=== PATIENT | male | born 1965 | race Caucasian/White ===

== ENCOUNTER 2024-12-18 15:27 | Inpatient (IN) | payer BC, SELFPAY ==
--- OUTSIDE RECORDS SUMMARY | 2024-12-13 08:15 | XMS_ITS | Encounter Summary ---
Author Organization [facility] Address [address] [place] [address] Care Team Providers Care Post Form Remover Name Role Phone Gigi Zuñiga M.D. Primary Care Provider + Encounter Details Date Type Department Care Team (Latest Contact Info) Description 12/13/2024 9:15 AM CDT - 12/13/2024 11:59 PM CDT Hospital Encounter Department of Laboratory Medicine in [place], [place] [address] [facility] [place] [phone] Gigi Zuñiga M.D. [address] [place] [address] [place] [phone] Diabetes Mellitus Type 2 (HCC) Discharge Disposition: Home or Self Care Social History Tobacco Use Types Packs/Day Years Used Date Smoking Tobacco: Every Day Cigarettes 1 46 Smokeless Tobacco: Never Alcohol Use Standard Drinks/Week Comments Not Currently 0 (1 standard drink = 0.6 oz pur e alcohol) [facility] Utilities Answer Date Recorded In the past 12 months has e [employer], gas, oil, or water [employer] threatened to shut off services in your home? No 05/11/2024 Humiliation, Afraid, Rape, and Kick questionnair e Answer Date Recorded Within the last year, have y ou been afraid of your partner or ex-partner? No 09/30/2022 Within the last year, have y ou been humiliated or emotionally abused in other ways by your partner or ex-partner? No Within the last year, have y ou been kicked, hit, slapped, or otherwise physically hurt by your partner or ex-partner? No 09/30/2022 Within the last year, have y ou been raped or forced to have any kind of sexual activity by your partner or ex-partner? No 09/30/2022 Hunger Vital Sign Answer Date Recorded Within the past 12 months, y ou worried that your food would run out before you got the money to buy more. Never true 05/12/19 25 Within the past 12 months, t he food you bought just didn't last and you didn't have money to get more. Never true 05/11/2024 PRAPARE - Transportation Answer Date Re corded In the past 12 months, has l ack of transportation kept you from medical appointments or from getting medications? No 04/14 In the past 12 months, has l ack of transportation kept you from meetings, work, or from getting things needed for daily living? No 05/11/2024 Depression Answer Date Recor ded PHQ-9 Total Score (max 27) 7 08/19 Housing Stability Answer Date Recorded What is your living situation today? I have a [facility] place to live 05/11/2024 Education Answer Date Recorded What is the highest level of school you have completed or the highest degree you have received? GED or equivalent 02/2019 Sex and Gender Information Value Date Recorded Sex Assigned at Male 01/18/2017 10:15 AM PLASTIC TOP ASSEMBLER Legal Sex Male 9:34 AM PLASTIC TOP ASSEMBLER Gender Identity Male 01/18/2017 10:15 AM PLASTIC TOP ASSEMBLER Sexual Orientation Straight 01/18/2017 10 :15 AM PLASTIC TOP ASSEMBLER documented as of this encounter Medications at Time of Discharge acetaminophen (TYLENOL 8 HR) 650 mg ER tablet Take 1,500 mg by mouth 4 (four) times a day as needed. 02/03/2012 ammonium lactate (Lac-Hydrin) 12 % lotion Apply 1 Application topically 2 (two) times a day. Apply to areas of callusing twice daily. 400 g 11 05/15/[address] tablet Take 1 tablet (81 mg total) by mouth daily. 90 tablet 3 07/09/2024 atorvastatin (Lipitor) 40 mg tablet Take 1 tablet (40 mg total) by mouth at bedtime. 90 tablet 3 05/10/2024 BD Ultra-Fine Mini Pen Needle 31 gauge x 3/16 needle USE TO INJECT SUB-Q TWO TIMES A DAY 200 each 04/14/2020 blood-glucose sensor (FreeStyle Franco 3 Plus Sensor) deviceIndication s:Diabetes Mellitus Type 2 (HCC) 1 each every 15 (fifteen) days. Use as directed every 15 days. 6 each 3 07/10/2024 celecoxib (CeleBREX) 200 mg capsule TAKE 1 CAPSULE BY MOUTH EVERY DAY NEEDED FOR PAIN SCORE 4-6 OUT OF 10 90 capsule 08/12/2024 cholecalciferol (Vitamin D3) 125 mcg (5,000 Unit) capsule Take 1 capsule (5,000 Units total) by mouth daily. 90 capsule 3 07/09/2024 dextrose 40 % (dextrose) 40 % gel Take 15 g by mouth as needed for low blood sugar. 30 g 11 05/05/2020 lisinopriL 10 mg tablet Take 1 tablet (10 mg total) by mouth daily. 90 tablet 3 05/10/2024 melatonin 10 mg tablet Take 10 mg by mouth at bedtime. metFORMIN (Glucophage) 1,000 mg tablet Take 1 tablet (1,000 mg total) by mouth 2 (two) times a day with meals. 180 tablet 3 05/10/2024 nitroglycerin (Nitrostat) 0.[address] 1 tablet (0.4 mg total) under the tongue every 5 (five) minutes as needed for chest pain. 25 tablet 1 07/09/2024 omeprazole (PriLOSEC) [address] capsule Take 1 capsule (40 mg total) by mouth daily. 90 capsule 3 07/09/2024 Ozempic 2 mg/dose (8 mg/3 mL) injectionIndicat ions:Diabetes Mellitus Type 2 (HCC) INJECT 2MG SUBCUTANEOUS ONCE A WEEK 3 mL 12/12/2024 propranoloL (InderaL) 20 mg tablet Take 1 tablet (20 mg total) by mouth 3 (three) times a day. 270 tablet 3 07/09/2024 SUMAtriptan (Imitrex) 100 mg tablet Take 1 tablet (100 mg total) by mouth daily as needed for migraine. 9 tablet 1 10/30/2020 triamcinolone (KENALOG) 0.1 % ointment APPLY 1 APPLICATION TOPICALLY 2 TIMES A DAY NEEDED FOR IRRITATION OR RASH. APPLY TO AREA OF RASH. 60 g 1 01/26/2022 trolamine salicylate (ASPERCREME) 10 % cream Apply 1 application topically 3 (three) times a day as needed for muscle/joint pain. 120 g 3 04/01/2021 documented as of this encounter Plan of Treatment Upcoming Encounters Date Type Department Care Team (Latest Contact Info) Description 12/26/2024 8:00 AM PLASTIC TOP ASSEMBLER Office Visit [facility] Department of Internal Medicine in [place], [place] [address] [facility] [place] [phone] Gigi Zuñiga M.D. [address] [facility] [place] [phone] 12/26/2024 10:00 AM PLASTIC TOP ASSEMBLER Office Visit Department of Endocrinology in [place], [place] [address] [place] [phone] Lisa Gutierres P.A.-C. [address] [place] [phone] Discharge Disposition: Home or Self Care documented as of this encounter Procedures Procedure Name Priority Date/Time Associated Diagnosis Comments CBC WITH DIFFERENTIAL, B Routine 12/13/2024 9:29 AM CDT Diabetes Mellitus Type 2 (HCC) HEMOGLOBIN A1C, B Routine 12/13/2024 9:2 9 AM CDT Diabetes Mellitus Type 2 (HCC) COMPREHENSIVE METABOLIC PANEL, S/P Routine 12/13/2024 9:29 AM CDT Diabetes Mellitus Type 2 (HCC) documented in this encounter Results * (ABNORMAL) Hemoglobin A1c (12/13/2024 9:29 AM CDT) Hemoglobin A1c, B 6.2(H) 4.2 - 5.6 % 12/13/2024 11:20 AM CDT OWAT Comment: Hemoglobin A1c values of 5.7-6.4 percent indicate an increased risk for developing diabetes mellitus. In diabetic patients, HbA1c goals should be discussed with healthcare provider. Blood (Blood, Venous) 12/13/2024 9:29 AM CDT 12/13/2024 10:44 AM CDT us Gigi Zuñiga M.D. LAB BLOOD ADD-ON Final R esult [facility] [address] [place] [address], [facility] OWAT [facility] [place] [address] [place] [address] * (ABNORMAL) Comprehensive Metabolic Panel (12/13/2024 9:29 AM CDT) Potassium, P 4.6 3.6 - 5.2 mmol/L 12/13/2024 11:15 AM CDT OWAT Sodium, P 138 135 - 145 mmol/L 12/13/2024 11:15 AM CDT OWAT Chloride, P 104 98 - 107 mmol/L 12/13/2024 11:15 AM CDT OWAT Bicarbonate, P 22 22 - 29 mmol/L 12/13/2024 11:15 AM CDT OWAT Anion Gap, P 12 7 - 15 12/13/2024 11:15 AM CDT OWAT BUN (Blood Urea Nitrogen), P 21 8 - 24 mg/dL 12/13/2024 11:15 AM CDT OWAT Creatinine 0.71(L) 0.74 - 1.35 mg/dL 12/13/2024 11:15 AM CDT OWAT Estimated GFR (eGFR) >90 >=60 mL/min/BS A 12/13/2024 11:15 AM CDT OWAT Comment: Estimated GFR calculated using the 2020 CKD_EPI creatinine equation. Calcium, Total, P 9.4 8.6 - 10.0 mg/dL 12/13/2024 11:15 AM CDT OWAT Glucose, P 182(H) 70 - 140 mg/dL 12/13/2024 11:15 AM CDT OWAT Protein, Total, P 6.3 6.3 - 7.9 g/dL 12/13/2024 11:15 AM CDT OWAT Albumin, P 4.2 3.5 - 5.0 g/dL 12/13/2024 11:15 AM CDT OWAT Aspartate Aminotransferase (AST), P 16 8 - 48 U/L 12/13/2024 11:15 AM CDT OWAT Alkaline Phosphatase, P 67 40 - 129 U/L 12/13/2024 11:15 AM CDT OWAT Alanine Aminotransferase (ALT), P 16 7 - 55 U/L 12/13/2024 11:15 AM CDT OWAT Bilirubin, Total, P 0.5 0.0 - 1.2 mg/dL 12/13/2024 11:15 AM CDT OWAT Blood (Blood, Venous) 12/13/2024 9:29 AM CDT 12/13/2024 10:44 AM CDT us Gigi Zuñiga M.D. LAB BLOOD ADD-ON Final R esult [facility] [address] [place] [address], [facility] OW[facility] [place] [address], [place] [address] * CBC with Differential, Blood (12/13/2024 9:29 AM CDT) Hemoglobin 15.2 13.2 - 16.6 g/dL 12/13/2024 10:51 AM CDT OWAT Hematocrit 45.4 38.3 - 48.6 % 12/13/2024 10:51 AM CDT OWAT Erythrocytes 4.95 4.35 - 5.65 x10(12)/L 12/13/2024 10:51 AM CDT OWAT MCV 91.7 78.2 - 97.9 fL 12/13/2024 10:51 AM CDT OWAT RBC Distrib Width 13.2 11.8 - 14.5 % 12/13/2024 10:51 AM CDT OWAT Platelet Count 291 135 - 317 x10(9)/L 12/13/2024 10:51 AM CDT OWAT Leukocytes 7.8 3.4 - 9.6 x10(9)/L 12/13/2024 10:51 AM CDT OWAT Neutrophils 4.89 1.56 - 6.45 x10(9)/L 12/13/2024 10:51 AM CDT OWAT Lymphocytes 2.06 0.95 - 3.07 x10(9)/L 12/13/2024 10:51 AM CDT OWAT Monocytes 0.56 0.26 - 0.81 x10(9)/L 12/13/2024 10:51 AM CDT OWAT Eosinophils 0.24 0.03 - 0.48 x10(9)/L 12/13/2024 10:51 AM CDT OWAT Basophils 0.05 0.01 - 0.08 x10(9)/L 12/13/2024 10:51 AM CDT OWAT Blood (Blood, Venous) 12/13/2024 9:29 AM CDT 12/13/2024 10:42 AM CDT Gigi Zuñiga M.D. LAB BLOOD ADD-ON Final R esult [facility] [address] [place] [address], [facility] OWAT [facility] [place] [address], [place] [address] documented in this encounter Visit Diagnoses Diagnosis Diabetes Mellitus Type 2 (HCC) documented in this encounter Additional Health Concerns Assessment Noted Time PHQ-9 Depression Total Score: 7 08/20/19 21 4:13 PM CDT documented as of this encounter Care Teams Post Form Remover Relationship Specialty Start Date End Date Gigi Zuñiga M.D. [address] [place] [phone] PCP - General 07/28/16 documented as of this encounter
[2024-12-18] VITALS (11 sets, daily range): BP systolic 114–160; BP diastolic 71–109; PULSE 78–96; RESP 17–19; TEMP 36.4–36.6; O2SAT 93–98
--- OUTSIDE RECORDS SUMMARY | 2024-12-18 15:29 | XMS_ITS | Encounter Summary ---
Author Organization [facility] Address [address] [place] [address] Care Team Providers Care Gas Appliance Servicer Name Role Phone Gigi Zuñiga M.D. Primary Care Provider + Reason for Visit * Reason Onset Date Comments Labs for endocrine 11/05/2024 Encounter Details Date Type Department Care Team (Latest Contact Info) Description 11/05/2024 Clinical Communication Department of Endocrinology in [place], [place] [address] [place] [phone] Blanka Cisneros R.N. [address] [place] [phone] Labs for endocrine Social History Tobacco Use Types Packs/Day Years Used Date Smoking Tobacco: Every Day Cigarettes 1 46 Smokeless Tobacco: Never Alcohol Use Standard Drinks/Week Comments Not Currently 0 (1 standard drink = 0.6 oz pur e alcohol) [facility] Utilities Answer Date Recorded In the past 12 months has e [employer], gas, oil, or water [employer] threatened to shut off services in your [...] your living situation today? I have a [facility] place to live 05/11/2024 Education Answer Date Recorded What is the highest level of school you have completed or the highest degree you have received? GED or equivalent 02/2019 Sex and Gender Information Value Date Recorded Sex Assigned at Male 01/18/2017 10:15 AM DRYWALL TAPER Legal Sex Male 9:34 AM DRYWALL TAPER Gender Identity Male 01/18/2017 10:15 AM DRYWALL TAPER Sexual Orientation Straight 01/18/2017 10 :15 AM DRYWALL TAPER documented as of this encounter Plan of Treatment Upcoming Encounters Date Type Department Care Team (Latest Contact Info) Description 12/26/2024 8:00 AM DRYWALL TAPER Office Visit [facility] Department of Internal Medicine in [place], [place] [address] [place] [place] [phone] Gigi Zuñiga M.D. [address] [place] [phone] 12/26/2024 10:00 AM DRYWALL TAPER Office Visit Department of Endocrinology in [place], [place] [address] [place] [phone] Lisa Gutierres P.A.-C. [address] [place] [phone] Discharge Disposition: Home or Self Care documented as of this encounter Visit Diagnoses Not on filedocumented in this encounter Additional Health Concerns Assessment Noted Time PHQ-9 Depression Total Score: 7 08/20/19 21 4:13 PM CDT documented as of this encounter Care Teams Gas Appliance Servicer Relationship Specialty Start Date End Date Gigi Zuñiga M.D. [address] [place] [phone] PCP - General 07/28/16 documented as of this encounter
--- OUTSIDE RECORDS SUMMARY | 2024-12-18 15:29 | XMS_ITS | Encounter Summary ---
Author Organization [facility] Address [address] [place] [address] Care Team Providers Care Tobacco Stripper Hand Name Role Phone Gigi Zuñiga M.D. Primary Care Provider + Reason for Referral * Outpatient (Routine) - Authorized Specialty Diagnoses / Procedures Referred By Amalia fernandez Referred To Contact Sleep Medicine Diagnoses Obstructive Sleep Apnea Adult Marilin Quiros M.D. [address] [address] Phone: tel: fax: [facility] Referral ID Status Reason Start Date Expiration Date V isits Requested Visits Authorized [id number] Authorized 10/18/2024 04/19/2026 1 1 Encounter Details Date Type Department Care Team (Late st Contact Info) Description 10/18/2024 Results Follow-Up Department of Sleep Medicine in [place], [place] [address] [phone] Marilin Quiros M.D. [address] [place] [phone] Home sleep apnea test (HSAT) Social History Tobacco Use Types Packs/Day Years Used Date Smoking Tobacco: Every Day Cigarettes 1 46 Smokeless Tobacco: Never Alcohol Use Standard Drinks/Week Comments Not Currently 0 (1 standard drink = 0.6 oz pur e alcohol) [facility] Utilities Answer Date Recorded In the past 12 months has e electric, gas, oil, or water company threatened to shut off services in your [...] your living situation today? I have a [facility] place to live 05/11/2024 Education Answer Date Recorded What is the highest level of school you have completed or the highest degree you have received? GED or equivalent 02/2019 Sex and Gender Information Value Date Recorded Sex Assigned at Male 01/18/2017 10:15 AM MULTI SHARE PROGRAM COORDINATOR Legal Sex Male 9:34 AM MULTI SHARE PROGRAM COORDINATOR Gender Identity Male 01/18/2017 10:15 AM MULTI SHARE PROGRAM COORDINATOR Sexual Orientation Straight 01/18/2017 10 :15 AM MULTI SHARE PROGRAM COORDINATOR documented as of this encounter Plan of Treatment Upcoming Encounters Date Type Department Care Team (Latest Contact Info) Description 12/26/2024 8:00 AM MULTI SHARE PROGRAM COORDINATOR Office Visit [facility] Department of Internal Medicine in [place], [place] [address] [facility] [address] Gigi Zuñiga M.D. [address] [place] [phone] 12/26/2024 10:00 AM MULTI SHARE PROGRAM COORDINATOR Office Visit Department of Endocrinology in [place], [place] [address] [place] [phone] Lisa Gutierres P.A.-C. [address] [place] [phone] Discharge Disposition: Home or Self Care Scheduled Referrals Name Type Priority Associated Diagnoses Orde r Schedule Sleep Medicine office visit (clinic) Outpatient Referral Routine Obstructive Sleep Apnea Adult Expected: 01/17/2025, Expires: 01/17/2026 documented as of this encounter Visit Diagnoses Diagnosis Obstructive Sleep Apnea Adult- Primary documented in this encounter Additional Health Concerns Assessment Noted Time PHQ-9 Depression Total Score: 7 08/20/19 21 4:13 PM CDT documented as of this encounter Care Teams Tobacco Stripper Hand Relationship Specialty Start Date End Date Gigi Zuñiga M.D. [address] [facility] [address] PCP - General 07/28/16 documented as of this encounter
--- OUTSIDE RECORDS SUMMARY | 2024-12-18 15:29 | XMS_ITS | Encounter Summary ---
Author Organization [facility] Address [address] [place] [address] Care Team Providers Care Breakfast Supervisor Name Role Phone Gigi Zuñiga M.D. Primary Care Provider + Reason for Referral * Medication Prior Authorization - Pending Review Specialty Diagnoses / Procedures Referred By Amalia fernandez Referred To Contact Diagnoses Diabetes Mellitus Type 2 (HCC) Carmela Tejada M.D. [address] [place] [phone] Phone: tel: fax: Referral ID Status Reason Start Date Expiration Date V isits Requested Visits Authorized [id number] Pending Review 1 1 Reason for Visit * Reason Comments Med Refill Encounter Details Date Type Department Care Team (Late st Contact Info) Description 12/11/2024 Refill Department of Endocrinology in [address] [phone] Lisa Gutierres P.A.-C. [address] [place] [phone] Med Refill Social History Tobacco Use Types Packs/Day Years Used Date Smoking Tobacco: Every Day Cigarettes 1 46 Smokeless Tobacco: Never Alcohol Use Standard Drinks/Week Comments Not Currently 0 (1 standard drink = 0.6 oz pur e alcohol) [facility] Utilities Answer Date Recorded In the past 12 months has th e electric, gas, oil, or water company [...] your living situation today? I have a [facility] place to live 05/11/2024 Education Answer Date Recorded What is the highest level of school you have completed or the highest degree you have received? GED or equivalent 02/2019 Sex and Gender Information Value Date Recorded Sex Assigned at Male 01/18/2017 10:15 AM COMMERCIAL CREDIT HEAD Legal Sex Male 9:34 AM COMMERCIAL CREDIT HEAD Gender Identity Male 01/18/2017 10:15 AM COMMERCIAL CREDIT HEAD Sexual Orientation Straight 01/18/2017 10 :15 AM COMMERCIAL CREDIT HEAD documented as of this encounter Plan of Treatment Upcoming Encounters Date Type Department Care Team (Latest Contact Info) Description 12/26/2024 8:00 AM COMMERCIAL CREDIT HEAD Office Visit [facility] Department of Internal Medicine in [place], [place] [address] [place] [address] Ggii Zuñiga M.D. [address] [place] [address] 12/26/2024 10:00 AM COMMERCIAL CREDIT HEAD Office Visit Department of Endocrinology in [place], [place] [address] [place] [phone] Lisa Gutierres P.A.-C. [address] [place] [phone] Discharge Disposition: Home or Self Care documented as of this encounter Visit Diagnoses Diagnosis Diabetes Mellitus Type 2 (HCC)- Primary documented in this encounter Additional Health Concerns Assessment Noted Time PHQ-9 Depression Total Score: 7 08/20/19 21 4:13 PM CDT documented as of this encounter Care Teams Breakfast Supervisor Relationship Specialty Start Date End Date Gigi Zuñiga M.D. [address] [place] [phone] PCP - General 07/28/16 documented as of this encounter
--- OUTSIDE RECORDS SUMMARY | 2024-12-18 15:29 | XMS_ITS | Encounter Summary ---
Author Organization [facility] Address [address] [place] [address] Care Team Providers Care Rigging Loft Mechanic Name Role Phone Gigi Zuñiga M.D. Primary Care Provider + Encounter Details Date Type Department Care Team (Latest Contact Info) Description 12/13/2024 [facility] Department of Internal Medicine in [place], [place] [address] [place] [phone] Roni Loza M.D. [address] [place] [address] CBC with Differential, Blood, Comprehensive Metabolic Panel, Hemoglobin A1c Social History Tobacco Use Types Packs/Day Years Used Date Smoking Tobacco: Every Day Cigarettes 1 46 Smokeless Tobacco: Never Alcohol Use Standard Drinks/Week Comments Not Currently 0 (1 standard drink = 0.6 oz pur e alcohol) [facility] Utilities Answer Date Recorded In the past [...] your living situation today? I have a [facility] place to live 05/11/2024 Education Answer Date Recorded What is the highest level of school you have completed or the highest degree you have received? GED or equivalent 02/2019 Sex and Gender Information Value Date Recorded Sex Assigned at Male 01/18/2017 10:15 AM VP ORGANIZATIONAL DEVELOPMENT Legal Sex Male 9:34 AM VP ORGANIZATIONAL DEVELOPMENT Gender Identity Male 01/18/2017 10:15 AM VP ORGANIZATIONAL DEVELOPMENT Sexual Orientation Straight 01/18/2017 10 :15 AM VP ORGANIZATIONAL DEVELOPMENT documented as of this encounter Plan of Treatment Upcoming Encounters Date Type Department Care Team (Latest Contact Info) Description 12/26/2024 8:00 AM VP ORGANIZATIONAL DEVELOPMENT [facility] Department of Internal Medicine in [place], [place] [address] [place] [place] [address] Gigi Zuñiga M.D. [address] [place] [place] [phone] 12/26/2024 10:00 AM VP ORGANIZATIONAL DEVELOPMENT Office Visit Department of Endocrinology in [place], [place] [address] [place] [phone] Lisa Gutierres P.A.-C. [address] [place] [phone] Discharge Disposition: Home or Self Care documented as of this encounter Visit Diagnoses Not on filedocumented in this encounter Additional Health Concerns Assessment Noted Time PHQ-9 Depression Total Score: 7 08/20/19 21 4:13 PM CDT documented as of this encounter Care Teams Rigging Loft Mechanic Relationship Specialty Start Date End Date Gigi Zuñiga M.D. [address] [place] [address] PCP - General 07/28/16 documented as of this encounter
--- OUTSIDE RECORDS SUMMARY | 2024-12-18 15:30 | XMS_ITS | Clinical Summary ---
Author Organization [employer] [facility] Address [address] [place] [id number] Care Team Providers Care Cascara Bark Cutter Name Role Phone Gigi Zuñiga MD Primary Care Provider + Allergies Active Allergy Reactions Criticality Noted Date Comments Oxycodone-Acetaminophen Hives,Itching 4 Medications dextrose 15 g/32 mL (TRUEPLUS) oral gel packet 15 g. 11/29/19 13 Active acetaminophen SR (TYLENOL ARTHRITIS) 650 mg Extended-Releas e tablet Take 1 Tab by mouth. 02/03/20 12 Active SUMAtriptan (IMITREX) 100 mg tablet Take 100 mg by mouth. 03/30/19 18 Active triamcinolone (ARISTOCORT) 0.5 % ointment Apply topically to affected area(s). 04/21/19 18 Active cholecalciferol (VITAMIN D3) 1,000 unit capsule Take 1,000 Units by mouth. Active nitroglycerin (NITROSTAT) 0.[address] 0.4 mg under the tongue. 05/10/19 19 Active fluticasone furoate-vilante roL (BREO ELLIPTA) 100-25 mcg/dose inhaler Inhale 1 Puff by mouth. 08/06/19 20 Active semaglutide (OZEMPIC) pen Inject 0.25 mg subcutaneous. 08/06/19 20 Active propranoloL (INDERAL) 20 mg tablet TAKE ONE TABLET BY MOUTH THREE TIMES A DAY 06/05/19 20 Active omeprazole (PRILOSEC) 40 mg Delayed-Release capsule TAKE ONE CAPSULE BY MOUTH EVERY DAY 06/21/19 20 Active aspirin (ECOTRIN) 81 mg enteric coated tablet TAKE ONE TABLET BY MOUTH EVERY DAY 04/25/19 20 Active atorvastatin (LIPITOR) 40 mg tablet TAKE ONE TABLET BY MOUTH AT BEDTIME 06/05/19 20 Active metFORMIN (GLUCOPHAGE) 1,000 mg tablet TAKE ONE TABLET BY MOUTH TWICE A DAY WITH MEALS 06/05/19 20 Active lisinopriL (PRINIVIL; ZESTRIL) 10 mg tablet TAKE ONE TABLET BY MOUTH EVERY DAY 03/31/19 21 Active melatonin 10 mg tab Take 10 mg by mouth. Active benzonatate 200 mg capsuleIndicati ons:Acute cough Take 1 Capsule (200 mg) by mouth 3 times daily if needed for Cough. 21 Capsule 06/07/19 25 Active famotidine (PEPCID) 20 mg tabletIndicatio ns:Upper abdominal pain Take 1 Tablet (20 mg) by mouth 2 times daily if needed for Heartburn. 30 Tablet 5 1:01 PM BUTTER FAT TESTER 12/19/19 25 Active Insulin Syringe-Needle U-100 0.5 mL 30 gauge x /2 BD insulin 1/2mL 1/2 30G syringes See Instructions, Use Once daily with insulin glargine. Lifetime Need DX: E11.9, 100 each, 3 Refill(s) 03/03/19 17 025 Discontinued( Pharmacist change per medication history (E-cancel not sent)) NebulizerIndica tions:Cough,Inf luenza A Nebulizer, neb kit x 1, adult mask x 1, filters x 1. Frequency of use: daily; Medication: albuterol Length of need: 99 months 1 Device 04/20/19 19 025 Discontinued( Pharmacist change per medication history (E-cancel not sent)) BD INSULIN PEN NEEDLE UF MINI 31 gauge x 3/16 05/05/19 19 025 Discontinued( Pharmacist change per medication history (E-cancel not sent)) pen needle, diabetic 31 gauge x 06/28 Use to inject 2x per day Dx: E11.9 06/06/19 18 025 Discontinued( Pharmacist change per medication history (E-cancel not sent)) ranitidine (ZANTAC) 150 mg tabletIndicatio ns:Gastroesopha geal reflux disease, esophagitis presence not specified Take 1 tablet by mouth 2 times daily. 30 tablet 11/20/ 025 Discontinued( *Patient states no longer taking) glimepiride (AMARYL) 2 mg tablet TAKE TWO TABLETS BY MOUTH TWICE A DAY 06/05/19 025 Discontinued( *Patient states no longer taking) flash glucose scanning reader (FreeStyle Franco 2 [place]) misc 1 Each by Continuous Infusion route. 07/30/19 025 Discontinued( Pharmacist change per medication history (E-cancel not sent)) FreeStyle Franco 2 [place] misc USE DIRECTED FOUR TIMES A DAY 08/01/19 025 Discontinued( Pharmacist change per medication history (E-cancel not sent)) flash glucose sensor (FreeStyle Franco 2 Sensor) kit 1 Each by Continuous Infusion route. 08/20/19 025 Discontinued( Pharmacist change per medication history (E-cancel not sent)) FreeStyle Franco 2 Sensor kit USE DIRECTED 08/24/19 025 Discontinued( Pharmacist change per medication history (E-cancel not sent)) Gum Uprxnr-Nikfzl-X Felipe-Alcohol (Mastisol Liquid Adhesive) liqd 2 Drops by Continuous Infusion route. 08/20/19 025 Discontinued( Pharmacist change per medication history (E-cancel not sent)) trolamine salicylate 10% topical (MYOFLEX) 10 % cream Apply topically to affected area(s). 05/06/19 025 Discontinued( *Patient states no longer taking) Semglee,insulin glargine-yfgn, 100 unit/mL soln INJECT 35 UNITS SUB-Q TWO TIMES A DAY 02/25/19 025 Discontinued( *Patient states no longer taking) aluminum-magnes ium hydroxide-simet hicone (MAALOX PLUS) 200-200-20 mg/5 mL suspensionIndic ations:Upper abdominal pain,Nausea and vomiting, unspecified vomiting type Take 15 mL by mouth 4 times daily if needed for GI Upset. Shake Well. 355 mL 12/14/19 025 Discontinued( *Med complete/Asha men complete/Leve l of care change) famotidine (PEPCID) 20 mg tabletIndicatio ns:Upper abdominal pain,Nausea and vomiting, unspecified vomiting type Take 1 Tablet (20 mg) by mouth 2 times daily if needed for GI Upset or Heartburn. 30 Tablet 12/14/19 25 025 Discontinued( *Med complete/Asha men complete/Leve l of care change) metoclopramide HCl (REGLAN) 10 mg tabletIndicatio ns:Nausea and vomiting, unspecified vomiting type Take 1 Tablet (10 mg) by mouth every 6 hours if needed for Nausea/Vomitin g. 15 Tablet 12/14/19 25 025 Discontinued( *Med complete/Asha men complete/Leve l of care change) Active Problems Problem Noted Date Diagnosed Date SBO (small bowel obstruction) 12/16/2024 Acute gastroenteritis 12/13/2024 Vitamin D deficiency 10/23/2023 Tobacco dependence syndrome 08/14/2012 Obstructive sleep apnea syndrome 08/15/2011 Overview (12/16/2024): Compliant on NIPPV DM2 (diabetes mellitus, type 2) HTN (hypertension) Hypercholesterolemia Encounters Date Type Department Care Team Description 12/13/2024 2:54 PM CDT - 12/18/2024 1:30 PM BUTTER FAT TESTER Hospital Encounter [facility] [address] [place] [address] Torres Paul PA Hospitalist, [facility] [place], [facility] Collette Alonzo, Radha Gan, Paul Gaming, DO Hospitalist, [facility] Upper abdominal pain (Primary Dx); Nausea and vomiting, unspecified vomiting type Discharge Disposition: Home Self Care 12/13/2024 Travel from Last 3 Months Immunizations Immunization Administration Dates Next Due Td (Age >=7 Years) 02/13/2002 Family History Relation Name Status Comments Brother Alive x3 Father (Age 59) Maternal Grandfather Maternal Grandmother Mother Alive Paternal Grandfather Paternal Grandmother Sister Alive x3 Social History Tobacco Use Types Packs/Day Years Used Date Smoking Tobacco: Every Day Cigarettes 1 30 Smokeless Tobacco: Never Tobacco Cessation:Ready to Q uit: Not Asked; Counseling Given: Not Answered Comments:onset age 7 Alcohol Use Standard Drinks/Week Comments Not Currently 0 (1 standard drink = 0.6 oz pur e alcohol) Social Connections Answer Date Recorded Do you often feel lonely or isolated from those around you? 0 12/13/2024 Financial Resource Strain Answer Date R ecorded Difficulty of Paying Living Expenses 3 12/13/2024 Difficulty of Paying Living Expenses Not on file 12/13/2024 Food Insecurity Answer Date Recorded Do you worry your food will run out before you are able to buy more? 1 12/13/2024 Transportation Needs Answer Date Record ed Does lack of transportation keep you from medica l appointments? 1 12/13/2024 Does lack of transportation keep you from work, meetings or getting things that you need? 1 12/13/2024 Housing Stability Answer Date Recorded What is your housing situation today? 1 12/13/2024 Interpersonal Safety Answer Date Record ed Are you being hit, kicked, p ushed or yelled at (see row info)? No 12/13/2024 Interpersonal Safety Abuse 12 - 18 Not on file 12/13/2024 Interpersonal Safety Ambulatory Vulnerability No t on file 12/13/2024 Utilities Answer Date Recorded Do you have trouble paying f or utilities (for example, heat, electricity, water, phone)? 1 12/13/2024 Sex and Gender Information Value Date Recorded Sex Assigned at Not on file Legal Sex Male 5:23 AM BUTTER FAT TESTER Gender Identity Not on file Sexual Orientation Not on file Occupation Industry Job Start Date Job End Date [employer] Not on file Not on file Not on f ile Obstetrics History Last Filed Vital Signs Vital Sign Reading Time Taken Comments Blood Pressure 126/73 12/18/2024 8:00 AM BUTTER FAT TESTER Pulse 85 12/18/2024 8:00 AM BUTTER FAT TESTER Temperature 36.8 C (98.2 F) 12/18/2024 8:00 AM BUTTER FAT TESTER Respiratory Rate 16 12/18/2024 8:00 AM BUTTER FAT TESTER Oxygen Saturation 93% 12/18/2024 8:00 AM BUTTER FAT TESTER Inhaled Oxygen Concentration - - Weight 89.5 kg (197 lb 6.4 oz) 12/13/2024 8:43 P M CDT Height 172.7 cm (5' 8) 12/13/2024 2:53 PM CDT Body Mass Index 30.01 12/13/2024 2:53 PM CDT Plan of Treatment Upcoming Encounters Date Type Department Care Team (Late st Contact Info) Description 12/24/2024 3:10 PM BUTTER FAT TESTER Office Visit [facility] [address] [place] [phone] Edelmira Crowley, [address] [place] [address] Health Maintenance Due Date Last Done Comments Depression screening for age 12+ 1977 HIV for age 15-65 1980 Hepatitis C screening for age 18-79 06/14/1983 Hepatitis B series for 19+ ( 1 of 3 - 19+ 3-dose series) 1984 Pneumococcal series for age 50+ (1 of 2 - PCV) 1984 Colonoscopy through age 75 2010 Lipids for age 45-75 2010 Tetanus booster 02/14/2012 02/13/2002 Zoster (shingles) series for age 50+ (1 of 2) 06/14/2015 BMI (ht and wt on same day) for age 18+ 04/20/2019 0 04/19/2018, 11/15/2017 Influenza Vaccine (#1) 2024 RSV vaccine for adults or pr egnancy (1 - 1-dose 75+ series) 2040 Procedures Procedure Name Priority Date/Time Associated Diagnosis Comments GLUCOSE METER Routine 12/18/2024 9:08 AM BUTTER FAT TESTER XR ABDOMEN 1 VIEW PORTABLE Early AM 12/18/2024 6:11 AM BUTTER FAT TESTER WHITE BLOOD COUNT Early AM 12/18/2024 5:5 4 AM BUTTER FAT TESTER HEMOGLOBIN Early AM 12/18/2024 5:54 AM BUTTER FAT TESTER MAGNESIUM Early AM 12/18/2024 5:54 AM BUTTER FAT TESTER POTASSIUM Early AM 12/18/2024 5:54 AM BUTTER FAT TESTER CREATININE Early AM 12/18/2024 5:54 AM BUTTER FAT TESTER GLUCOSE METER Routine 12/17/2024 9:20 PM BUTTER FAT TESTER GLUCOSE METER Routine 12/17/2024 4:44 PM BUTTER FAT TESTER GLUCOSE METER Routine 12/17/2024 12:05 PM BUTTER FAT TESTER XR ABDOMEN 1 VIEW PORTABLE STAT 12/17/2024 9:02 AM BUTTER FAT TESTER GLUCOSE METER Routine 12/17/2024 7:44 AM BUTTER FAT TESTER GLUCOSE METER Routine 12/16/2024 8:37 PM BUTTER FAT TESTER GLUCOSE METER Routine 12/16/2024 5:49 PM BUTTER FAT TESTER XR SMALL BOWEL WATER SOLUBLE STAT 12/16/2024 1:51 PM BUTTER FAT TESTER GLUCOSE METER Routine 12/16/2024 12:00 PM BUTTER FAT TESTER GLUCOSE METER Routine 12/16/2024 8:10 AM BUTTER FAT TESTER XR ABDOMEN 1 VIEW PORTABLE STAT 12/16/2024 6:29 AM BUTTER FAT TESTER CREATININE Early AM 12/16/2024 6:02 AM BUTTER FAT TESTER MAGNESIUM Early AM 12/16/2024 6:02 AM BUTTER FAT TESTER POTASSIUM Early AM 12/16/2024 6:02 AM BUTTER FAT TESTER WHITE BLOOD COUNT Early AM 12/16/2024 6:0 2 AM BUTTER FAT TESTER GLUCOSE METER Routine 12/16/2024 3:35 AM BUTTER FAT TESTER GLUCOSE METER Routine 12/15/2024 11:54 PM BUTTER FAT TESTER GLUCOSE METER Routine 12/15/2024 8:03 PM BUTTER FAT TESTER GLUCOSE METER Routine 12/15/2024 4:37 PM BUTTER FAT TESTER GLUCOSE METER Routine 12/15/2024 1:40 PM BUTTER FAT TESTER XR CHEST 1 VIEW PORTABLE STAT 12/15/2024 1:07 PM BUTTER FAT TESTER LACTATE VENOUS STAT 12/15/2024 12:[address] CHEST ABDOMEN PELVIS WO STAT 12/15/2024 9:50 AM BUTTER FAT TESTER GLUCOSE METER Routine 12/15/2024 8:05 AM BUTTER FAT TESTER CBC WITH AUTO DIFFERENTIAL MILA 12/15/2024 7:36 AM BUTTER FAT TESTER MAGNESIUM MILA 12/15/2024 7:36 AM BUTTER FAT TESTER CBC WITH AUTO DIFFERENTIAL MILA 12/15/2024 7:36 AM BUTTER FAT TESTER BASIC METABOLIC PANEL MILA 12/15/2024 7:36 AM BUTTER FAT TESTER GLUCOSE METER Routine 12/15/2024 4:00 AM BUTTER FAT TESTER GLUCOSE METER Routine 12/14/2024 11:31 PM CDT GLUCOSE METER Routine 12/14/2024 7:22 PM CDT GLUCOSE METER Routine 12/14/2024 3:30 PM CDT GLUCOSE METER Routine 12/14/2024 11:23 AM CDT GLUCOSE METER Routine 12/14/2024 7:23 AM CDT PLATELET COUNT Early AM 12/14/2024 5:50 AM CDT HEMOGLOBIN Early AM 12/14/2024 5:50 AM CDT SODIUM Early AM 12/14/2024 5:50 AM CDT POTASSIUM Early AM 12/14/2024 5:50 AM CDT CREATININE Early AM 12/14/2024 5:50 AM CDT WHITE BLOOD COUNT Early AM 12/14/2024 5:5 0 AM CDT GLUCOSE METER Routine 12/14/2024 3:21 AM CDT GLUCOSE METER Routine 12/14/2024 12:16 AM CDT UA W/ SEDIMENT EXAM REFLEXED PER CRITERIA STAT 12/13/2024 5:17 PM CDT TROPONIN T (HS) ONE TIME Timed 12/13/2024 5:02 PM CDT LACTATE VENOUS Timed 12/13/2024 5:[address] ABDOMEN PELVIS W STAT 12/13/2024 4 :15 PM CDT EKG 12 LEAD STAT 12/13/2024 3:59 PM CDT HEMOGLOBIN A1C MONITORING (POCT) MILA 12/13/2024 3:05 PM CDT CBC W PLT NO DIFF MILA 12/13/2024 3:0 5 PM CDT EXTRA TUBE LAVENDER Today 12/13/2024 3 :05 PM CDT EXTRA TUBE BLUE Today 12/13/2024 3:05 PM CDT TROPONIN T (HS) ACUTE W/2HR REFLEX STAT 12/13/2024 3:05 PM CDT LIPASE STAT 12/13/2024 3:05 PM CDT HEPATIC FUNCTION PANEL STAT 12/13/2024 3:05 PM CDT LACTATE VENOUS Today 12/13/2024 3:05 PM CDT from Last 3 Months Results * (ABNORMAL) GLUCOSE METER (12/18/2024 9:08 AM BUTTER FAT TESTER) Only the most recent of23 resultswithin the time period is included. GLUCOSE METER 146(H) 65 - 100 mg/dL 12/18/2024 9:09 AM BUTTER FAT TESTER [facility] Blood BLOOD SPECIMEN / Unknown 12/18/2024 9:08 AM BUTTER FAT TESTER 12/18/2024 9:09 AM BUTTER FAT TESTER [place] [facility] Hospitalist CHEMISTRY Final Result [facility] [address] [place] [address] * XR ABDOMEN 1 VIEW PORTABLE (12/18/2024 6:11 AM BUTTER FAT TESTER) Only the most recent of3 resultswithin the time period is included. Anatomical Region Laterality Modality Abdomen Digital Radiogra phy 12/18/2024 6:27 AM BUTTER FAT TESTER Narrative 12/18/2024 6:27 AM BUTTER FAT TESTER For Patients: As a result of the Cures Act, medical imaging exams and procedure reports are released immediately into your electronic medical record. You may view this report before your referring provider. If you have questions, please contact your health care provider. INDICATION: Abnormal bowel function. TECHNIQUE: Abdomen, 2 supine views. COMPARISON: 12/17/2024. FINDINGS: Contrast is now all predominantly within the nondistended colon. Dilated small bowel obstruction is similar to yesterday`s study. No other interval change. Dictated by Alonso Steven MD @ 12/18/2024 6:27:32 AM (Electronically Signed) Procedure Note Douglas Steven MD - 12/18/2024 For Patients: As a result of the Cures Act, medical imagingexams and procedure reports are released immediately into your electronicmedical record. You may view this report before your referring provider.If you have questions, please contact your health care provider. INDICATION: Abnormal bowel function. TECHNIQUE: Abdomen, 2 supine views. COMPARISON: 12/17/2024. FINDINGS: Contrast is now all predominantly within the nondistended colon. Dilatedsmall bowel obstruction is similar to yesterday`s study. No other intervalchange. Dictated by Alonso Steven MD @ 12/18/2024 6:27:32 AM (Electronically Signed) [facility] GENERAL IMAGING Final Res ult * (ABNORMAL) WHITE BLOOD COUNT (12/18/2024 5:54 AM BUTTER FAT TESTER) Only the most recent of3 resultswithin the time period is included. WHITE BLOOD COUNT 4.0(L) 4.5 - 11.0 thou/cu mm 12/18/2024 6:51 AM BUTTER FAT TESTER [facility] Blood BLOOD SPECIMEN / Unknown Venipuncture / Unknown 12/18/2024 5:54 AM BUTTER FAT TESTER 12/18/2024 6:43 AM BUTTER FAT TESTER [facility] DO HEMATOLOGY Final Res ult Performing Organization Address City/[facility]/ZIP Co de Phone Number [facility] [address] [place] [address] * HEMOGLOBIN (12/18/2024 5:54 AM BUTTER FAT TESTER) Only the most recent of2 resultswithin the time period is included. Pathologist [facility] HEMOGLOBIN 14.2 13.5 - 17.5 g/dL 12/18/2024 6:51 AM BUTTER FAT TESTER [facility] MCV 90 80 - 100 fL 12/18/2024 6:51 AM BUTTER FAT TESTER [facility] Blood BLOOD SPECIMEN / Unknown Venipuncture / Unknown 12/18/2024 5:54 AM BUTTER FAT TESTER 12/18/2024 6:43 AM BUTTER FAT TESTER [facility] DO HEMATOLOGY Final Res ult [facility] [address] [place] [address] * (ABNORMAL) POTASSIUM (12/18/2024 5:54 AM BUTTER FAT TESTER) Only the most recent of3 resultswithin the time period is included. POTASSIUM 3.4(L) 3.5 - 5.1 mmol/L 12/18/2024 7:06 AM [facility] Blood BLOOD SPECIMEN / Unknown Venipuncture / Unknown 12/18/2024 5:54 AM BUTTER FAT TESTER 12/18/2024 6:43 AM BUTTER FAT TESTER [facility] DO CHEMISTRY Final Res ult Performing Organization Address [facility] de Phone Number [facility] [address] [place] [address] * CREATININE (12/18/2024 5:54 AM BUTTER FAT TESTER) Only the most recent of3 resultswithin the time period is included. eGFR >90 >90 mL/min/1.7 3m2 12/18/2024 7:06 AM [facility] Comment:As of 2021, eG FR is calculated by the CKD-EPI creatinine equation without race adjustment. eGFR can be influenced by muscle mass, exercise, and diet. The reported eGFR is an estimation only and is only applicable if the renal function is stable. CREATININE 0.73 0.70 - 1.20 mg/dL 12/18/2024 7:06 AM [facility] Blood BLOOD SPECIMEN / Unknown Venipuncture / Unknown 12/18/2024 5:54 AM BUTTER FAT TESTER 12/18/2024 6:43 AM BUTTER FAT TESTER [employer] DO CHEMISTRY Final Res ult Performing Organization Address [facility] de Phone Number [facility] [address] [place], [place] [id number] * MAGNESIUM (12/18/2024 5:54 AM BUTTER FAT TESTER) Only the most recent of3 resultswithin the time period is included. MAGNESIUM 2.0 1.6 - 2.6 mg/dL 12/18/2024 7:06 AM BUTTER FAT TESTER [facility] Blood BLOOD SPECIMEN / Unknown Venipuncture / Unknown 12/18/2024 5:54 AM BUTTER FAT TESTER 12/18/2024 6:43 AM BUTTER FAT TESTER us Paul Desir DO CHEMISTRY Final Res ult [facility] [address] [place] [address] * XR SMALL BOWEL WATER SOLUBLE (12/16/2024 1:51 PM BUTTER FAT TESTER) Anatomical Region Laterality Modality SMALL BOWEL Computed Radiogr aphy 12/16/2024 2:00 PM BUTTER FAT TESTER Narrative 12/16/2024 2:00 PM BUTTER FAT TESTER For Patients: As a result of the Cures Act, medical imaging exams and procedure reports are released immediately into your electronic medical record. You may view this report before your referring provider. If you have questions, please contact your health care provider. Indication: Small-bowel obstruction Technique: Small bowel follow-through. Enteric contrast was administered at approximately 0910 hours and subsequent images were obtained at 11 15 and 1340 hours Comparison: Same day abdominal radiograph and prior exams Findings/Impression: An enteric tube is present with tip obscured by enteric contrast. Initial image obtained at 0910 hours shows enteric contrast within the stomach and proximal small bowel. Redemonstration of numerous loops of gaseous distended small bowel throughout the abdomen measuring up to approximately 4.5 centimeters in diameter. Subsequent images obtained at 1115 and 1340 hours shows progression of enteric contrast throughout the loops of dilated small bowel with suspected enteric contrast seen in the ascending colon on images obtained at 1340 hours. The lung bases are clear. No acute osseous abnormality. Dictated by Vikram Rockwell MD @ 12/16/2024 2:00:41 PM (Electronically Signed) Procedure Note Vikram Rockwell MD - 12/16/2024 For Patients: As a result of the Cures Act, medical imagingexams and procedure reports are released immediately into your electronicmedical record. You may view this report before your referring provider.If you have questions, please contact your health care provider. Indication: Small-bowel obstruction Technique: Small bowel follow-through. Enteric contrast was administered atapproximately 0910 hours and subsequent images were obtained at 11 15 [id number] hours Comparison: Same day abdominal radiograph and prior exams Findings/Impression: An enteric tube is present with tip obscured by enteric contrast. Initial image obtained at 0910 hours shows enteric contrast within thestomach and proximal small bowel. Redemonstration of numerous loops ofgaseous distended small bowel throughout the abdomen measuring up toapproximately 4.5 centimeters in diameter. Subsequent images obtained at 1115 and 1340 hours shows progression ofenteric contrast throughout the loops of dilated small bowel withsuspected enteric contrast seen in the ascending colon on images obtainedat 1340 hours. The lung bases are clear. No acute osseous abnormality. Dictated by Vikram Rockwell MD @ 12/16/2024 2:00:41 PM (Electronically Signed) us Paul Desir DO FLUOROSCOPY Final Res ult * XR CHEST 1 VIEW PORTABLE (12/15/2024 1:07 PM BUTTER FAT TESTER) Anatomical Region Laterality Modality HEART, THORAX, CHEST Digital Rad iography 12/15/2024 1:5 2 PM BUTTER FAT TESTER Narrative 12/15/2024 1:52 PM BUTTER FAT TESTER For Patients: As a result of the Cures Act, medical imaging exams and procedure reports are released immediately into your electronic medical record. You may view this report before your referring provider. If you have questions, please contact your health care provider. Indication: NG tube placement Comparison: Two-view chest June 06, 2024 Technique: Single AP view chest Findings: Satisfactory position of nasogastric tube with the tip and side port in the gastric lumen. There is no focal consolidation, effusion, or pneumothorax. The cardiomediastinal silhouette is within normal limits. The bony thorax is grossly intact. Impression: Satisfactory position of nasogastric tube. Dictated by Daniele Dennison MD @ 12/15/2024 1:52:14 PM (Electronically Signed) Procedure Note Daniele Dennison MD - 12/15/2024 For Patients: As a result of the Cures Act, medical imagingexams and procedure reports are released immediately into your electronicmedical record. You may view this report before your referring provider.If you have questions, please contact your health care provider. Indication: NG tube placement Comparison: Two-view chest June 06, 2024 Technique: Single AP view chest Findings: Satisfactory position of nasogastric tube with the tip and side port inthe gastric lumen. There is no focal consolidation, effusion, or pneumothorax. The cardiomediastinal silhouette is within normal limits. The bony thorax is grossly intact. Impression: Satisfactory position of nasogastric tube. Dictated by Daniele Dennison MD @ 12/15/2024 1:52:14 PM (Electronically Signed) us Collette Gibson MD GENERAL IMAGING Fin al Result * LACTATE VENOUS (12/15/2024 12:27 PM BUTTER FAT TESTER) Only the most recent of3 resultswithin the time period is included. LACTATE,VENOUS 0.9 0.5 - 2.0 mmol/L 12/15/2024 12:48 PM BUTTER FAT TESTER [facility] Blood BLOOD SPECIMEN / Unknown Venipuncture / Unknown 12/15/2024 12:27 PM BUTTER FAT TESTER 12/15/2024 12:29 PM BUTTER FAT TESTER us Collette Gibson MD CHEMISTRY Fin al Result [facility] [address] [place] [address] * CT CHEST ABDOMEN PELVIS WO (12/15/2024 9:50 AM BUTTER FAT TESTER) Anatomical Region Laterality Modality Abdomen, Pelvis, AORTA, LIVER, SPLEEN, CHEST Computed Tomography 12/15/2024 10:1 9 AM [employer] Impressions 12/15/2024 10:19 AM [employer] TE[employer] 1. No acute pulmonary findings. 2. Worsening moderate dilated fluid-filled small bowel loops diffusely increasing mesenteric edema. Distal small bowel appears more decompressed. A small focal area of small bowel narrowing in the left abdomen again seen. Findings could represent developing small-bowel obstruction, worsening enteritis. Consider surgical evaluation. Please note that all CT scans at this facility use dose modulation, iterative reconstruction, and/or weight-based dosing when appropriate to reduce radiation dose to as low as reasonably achievable. Dictated by Helen Powell MD @ 12/15/2024 10:19:21 AM (Electronically Signed) Narrative 12/15/2024 10:19 AM [employer] TESTER For Patients: As a result of the Cures Act, medical imaging exams and procedure reports are released immediately into your electronic medical record. You may view this report before your referring provider. If you have questions, please contact your health care provider. INDICATION: Persistent abdominal pain small-bowel obstruction TECHNIQUE: CT chest, abdomen and pelvis acquired without contrast. COMPARISON: CT 12/13/2024 FINDINGS: CHEST: Cardiovascular structures: Heart size is normal. Thoracic aorta and main pulmonary artery are normal in caliber. Mediastinum and mau: No mass or adenopathy. Lungs and pleura: Right basilar atelectasis trace effusion. Chest wall and axilla: No mass or adenopathy. Bones: No suspicious bone lesions. Unremarkable for age. ABDOMEN AND PELVIS: Liver: Unremarkable. Gallbladder and bile ducts: Unremarkable. Pancreas: Unremarkable. Spleen: Unremarkable. Adrenal glands: Unremarkable. Kidneys: Right peripheral low-attenuation lesion incompletely assessed on this study. No hydronephrosis or renal calculi. GI tract: Abundant stool in the colon. Diverticulosis. Normal appendix. Increasing prominent fluid-filled mildly dilated small bowel loops measuring up to 3.7 centimeters there is increasing mesenteric edema. Moderate amount of fluid in the pelvis. The distal small bowel loops are more decompressed. There is a focal area of narrowing in the left lower quadrant of the abdomen this is on and Vascular structures: Abdominal aorta is normal in caliber. Lymph nodes: Unremarkable. Miscellaneous: Mild abdominal pelvic ascites increased. Pelvic Organs: Unremarkable. Bones: No suspicious bone lesions. Unremarkable for age. Procedure Note Helen Powell MD - 12/15/2024 For Patients: As a result of the Cures Act, medical imagingexams and procedure reports are released immediately into your electronicmedical record. You may view this report before your referring provider.If you have questions, please contact your health care provider. INDICATION: Persistent abdominal pain small-bowel obstruction TECHNIQUE: CT chest, abdomen and pelvis acquired without contrast. COMPARISON: CT 12/13/2024 FINDINGS: CHEST: Cardiovascular structures: Heart size is normal. Thoracic aorta and mainpulmonary artery are normal in caliber. Mediastinum and mau: No mass or adenopathy. Lungs and pleura: Right basilar atelectasis trace effusion. Chest wall and axilla: No mass or adenopathy. Bones: No suspicious bone lesions. Unremarkable for age. ABDOMEN AND PELVIS: Liver: Unremarkable. Gallbladder and bile ducts: Unremarkable. Pancreas: Unremarkable. Spleen: Unremarkable. Adrenal glands: Unremarkable. Kidneys: Right peripheral low-attenuation lesion incompletely assessed onthis study. No hydronephrosis or renal calculi. GI tract: Abundant stool in the colon. Diverticulosis. Normal appendix. Increasing prominent fluid-filled mildly dilated small bowel loopsmeasuring up to 3.7 centimeters there is increasing mesenteric edema.Moderate amount of fluid in the pelvis. The distal small bowel loops aremore decompressed. There is a focal area of narrowing in the left lowerquadrant of the abdomen this is on and Vascular structures: Abdominal aorta is normal in caliber. Lymph nodes: Unremarkable. Miscellaneous: Mild abdominal pelvic ascites increased. Pelvic Organs: Unremarkable. Bones: No suspicious bone lesions. Unremarkable for age. IMPRESSION: 1. No acute pulmonary findings. 2. Worsening moderate dilated fluid-filled small bowel loops diffuselyincreasing mesenteric edema. Distal small bowel appears more decompressed.A small focal area of small bowel narrowing in the left abdomen againseen. Findings could represent developing small-bowel obstruction,worsening enteritis. Consider surgical evaluation. Please note that all CT scans at this facility use dose modulation,iterative reconstruction, and/or weight-based dosing when appropriate toreduce radiation dose to as low as reasonably achievable. Dictated by Helen Powell MD @ 12/15/2024 10:19:21 AM (Electronically Signed) us Collette Gibson MD CT Fin al Result * (ABNORMAL) CBC WITH AUTO DIFFERENTIAL (12/15/2024 7:36 AM [employer] TESTER) WHITE BLOOD COUNT 12.7(H) 4.5 - 11.0 thou/cu mm 12/15/2024 8:10 AM [facility] RED BLOOD COUNT 4.59 4.30 - 5.90 mil/cu mm 12/15/2024 8:10 AM [facility] HEMOGLOBIN 14.2 13.5 - 17.5 g/dL 12/15/2024 8:10 AM [facility] HEMATOCRIT 41.4 37.0 - 53.0 % 12/15/2024 8:10 AM [facility] MCV 90 80 - 100 fL 12/15/2024 8:10 AM [facility] MCH 30.9 26.0 - 34.0 pg 12/15/2024 8:10 AM [facility] MCHC 34.3 32.0 - 36.0 g/dL 12/15/2024 8:10 AM [facility] RDW 12.8 11.5 - 15.5 % 12/15/2024 8:10 AM [facility] PLATELET COUNT 216 140 - 440 thou/cu mm 12/15/2024 8:10 AM [facility] MPV 9.1 6.5 - 11.0 fL 12/15/2024 8:10 AM [facility] % NEUT 84.2 % 12/15/2024 8:10 AM [facility] % LYMPH 8.8 % 12/15/2024 8:10 AM [facility] % MONO 6.8 % 12/15/2024 8:10 AM [facility] % EOS 0.0 % 12/15/2024 8:10 AM [facility] % BASO 0.2 % 12/15/2024 8:10 AM [facility] ABSOLUTE NEUTROPHILS 10.7(H) 1.7 - 7.0 thou/cu mm 12/15/2024 8:10 AM [facility] ABSOLUTE LYMPHOCYTES 1.1 0.9 - 2.9 thou/cu mm 12/15/2024 8:10 AM [facility] ABSOLUTE MONOCYTES 0.9(H) <0.9 thou/cu mm 12/15/2024 8:10 AM [facility] ABSOLUTE EOSINOPHILS 0.0 <0.5 thou/cu mm 12/15/2024 8:10 AM [facility] ABSOLUTE BASOPHILS 0.0 <0.3 thou/cu mm 12/15/2024 8:10 AM [facility] Blood BLOOD SPECIMEN / Unknown Venipuncture / Unknown 12/15/2024 7:36 AM [employer] 12/15/2024 7:38 AM [facility] us Collette Gibson MD HEMATOLOGY Fin al Result [facility] [address] [place] [address] * (ABNORMAL) BASIC METABOLIC PANEL (12/15/2024 7:36 AM [facility]) SODIUM 136 136 - 145 mmol/L 12/15/2024 7:56 AM [facility] POTASSIUM 4.0 3.5 - 5.1 mmol/L 12/15/2024 7:56 AM [facility] CHLORIDE 106 98 - 107 mmol/L 12/15/2024 7:56 AM [facility] CO2,TOTAL 21(L) 22 - 29 mmol/L 12/15/2024 7:56 AM [facility] ANION GAP 9 5 - 18 12/15/2024 7:56 AM [facility] GLUCOSE 152(H) 70 - 99 mg/dL 12/15/2024 7:56 AM [facility] CALCIUM 8.5(L) 8.8 - 10.4 mg/dL 12/15/2024 7:56 AM [facility] Comment: Reference ranges for this test were updated on 12/19/2023 to reflect our healthy population more accurately. Reference range changes are not retroactively applied to results, but previous results using the same methodology can be interpreted in the context of the new reference range. BUN 15 6 - 20 mg/dL 12/15/2024 7:56 AM [facility] CREATININE 0.60(L) 0.70 - 1.20 mg/dL 12/15/2024 7:56 AM [employer] [facility] BUN/CREAT RATIO 25(H) 10 - 20 7:56 AM [employer] [facility] eGFR >90 >90 mL/min/1. 73m2 12/15/2024 7:56 AM [facility] Comment:As of 2021, eG FR is calculated by the CKD-EPI creatinine equation without race adjustment. eGFR can be influenced by muscle mass, exercise, and diet. The reported eGFR is an estimation only and is only applicable if the renal function is stable. Blood BLOOD SPECIMEN / Unknown Venipuncture / Unknown 12/15/2024 7:36 AM [employer] 12/15/2024 7:38 AM [employer] Collette Gibson MD CHEMISTRY Fin al Result Performing Organization Address City/[facility]/ZIP Co de Phone Number [facility] [address] [place] [address] * PLATELET COUNT (12/14/2024 5:50 AM CDT) PLATELET COUNT 240 140 - 440 thou/cu mm 12/14/2024 7:02 AM CDT [facility] MPV 9.4 6.5 - 11.0 fL 12/14/2024 7:02 AM CDT [facility] Blood BLOOD SPECIMEN / Unknown Venipuncture / Unknown 12/14/2024 5:50 AM CDT 12/14/2024 5:59 AM CDT us Donte Orantes [facility] HEMATOLOGY Final Result [facility] [address] [place] [address] * SODIUM (12/14/2024 5:50 AM CDT) SODIUM 137 136 - 145 mmol/L 12/14/2024 6:34 AM CDT [facility] Blood BLOOD SPECIMEN / Unknown Venipuncture / Unknown 12/14/2024 5:50 AM CDT 12/14/2024 5:59 AM CDT Donte Orantes [facility] CHEMISTRY Final Result [facility] [address] [place] [address] * (ABNORMAL) UA W/ SEDIMENT EXAM REFLEXED PER CRITERIA (12/13/2024 5:17 PM CDT) COLOR Yellow Yellow Color 12/13/2024 5:21 PM T [facility] CLARITY Clear Clear Clarity 12/13/2024 5:21 PM [facility] SPECIFIC GRAVITY,URINE 1.020 1.010, 1.015, 1.020, 1.025 12/13/2024 5:21 PM [facility] PH,URINE 5.5 6.0, 7.0, 8.0, 5.5, 6.5, 7.5, 8.5 12/13/2024 5:21 PM [facility] UROBILINOGEN, QUALITATIVE Normal Normal EU/dl 12/13/2024 5:21 PM [facility] PROTEIN, URINE Trace(A) Negative mg/dL 12/13/2024 5:21 PM [facility] GLUCOSE, URINE Negative Negative mg/dL 12/13/2024 5:21 PM [facility] KETONES,URINE Trace(A) Negative mg/dL 12/13/2024 5:21 PM [facility] BILIRUBIN,URI NE Negative Negative 12/13/2024 5:21 PM [facility] OCCULT BLOOD,URINE Negative Negative 12/13/2024 5:21 PM [facility] NITRITE Negative Negative 12/13/2024 5:21 PM [facility] LEUKOCYTE ESTERASE Negative Negative 12/13/2024 5:21 PM [facility] Urine URINE SPECIMEN / Unknown Non-Blood / Unknown 12/13/2024 5:17 PM CDT 12/13/2024 5:19 PM CDT Torres HUNTER URINE Final Re sult Performing Organization Address City/[facility]/ZIP Co de Phone Number [facility] [address] [place] [address] * TROPONIN T (HS) ONE TIME (12/13/2024 5:02 PM CDT) TROPONIN T HS <6 6-15 ng/L ng/L 12/13/2024 5:23 PM CDT [facility] Blood BLOOD SPECIMEN / Unknown Venipuncture / Unknown 12/13/2024 5:02 PM CDT 12/13/2024 5:04 PM CDT us Torres HUNTER CHEMISTRY Final Re sult Performing Organization Address [facility] Co de Phone Number [facility] [address] [place] [address] * CT ABDOMEN PELVIS W (12/13/2024 4:15 PM CDT) Anatomical Region Laterality Modality Abdomen, Pelvis, AORTA, LIVER, SPLEEN Computed Tomography 12/13/2024 4:51 PM CDT Impressions 12/13/2024 4:51 PM CDT 1. Mildly distended stomach with debris inside. Consider correlation with recent oral intake and symptoms of delayed gastric emptying. 2. Nonspecific mildly prominent small bowel measuring up to 2.7 centimeter in the left abdomen with mild associated mesenteric edema. Findings may represent infectious or inflammatory enteritis or developing small bowel obstruction given possible focal area of narrowing in the left lower quadrant of the abdomen. Trace free fluid within the abdomen and pelvis. Please note that all CT scans at this facility use dose modulation, iterative reconstruction, and/or weight-based dosing when appropriate to reduce radiation dose to as low as reasonably achievable. Dictated by Tomasz Ward MD @ 12/13/2024 4:51:30 PM (Electronically Signed) Narrative 12/13/2024 4:51 PM CDT For Patients: As a result of the 21st Century Cures Act, medical imaging exams and procedure reports are released immediately into your electronic medical record. You may view this report before your referring provider. If you have questions, please contact your health care provider. INDICATION: Abdominal pain, acute, nonlocalized right-sided TECHNIQUE: CT of the abdomen and pelvis was obtained with 100 mL of Omnipaque 300 intravenous contrast. Please note that all CT scans at this facility use dose modulation, iterative reconstruction, and/or weight-based dosing when appropriate to reduce radiation dose to as low as reasonably achievable. COMPARISON: 10/05/2008. FINDINGS: Lower thorax: Mild bilateral dependent atelectasis. Liver and biliary tree: Normal. Gallbladder: Normal. Spleen: Normal. Pancreas: Normal. Adrenal glands: Normal. Kidneys and ureters: 1.6 centimeter right renal cyst. Additional subcentimeter hypoattenuating lesions are too small to characterize and are favored to represent cysts. No hydronephrosis or obstructing renal calculi. Gastrointestinal tract: Moderate stool burden is seen throughout the colon. Mild colonic diverticulosis without CT evidence of acute diverticulitis. No evidence of acute appendicitis. Moderately distended stomach with debris inside. Nonspecific mildly prominent small bowel measuring up to 2.7 centimeter (2/101). There is a focal area of narrowing (4/65). Peritoneal cavity: Mild mesenteric edema. Trace free fluid within the abdomen and pelvis. Bladder: Normal. Pelvic organs: Mildly enlarged prostate. Vasculature: Mild calcification. Lymph nodes: Normal. Abdominal wall: Normal. Musculoskeletal: Mild degenerative changes of the bilateral hips and of the visualized spine. Procedure Note Luis M Ward MD - 12/13/2024 For Patients: As a result of the Cures Act, medical imagingexams and procedure reports are released immediately into your electronicmedical record. You may view this report before your referring provider.If you have questions, please contact your health care provider. INDICATION: Abdominal pain, acute, nonlocalized right-sided TECHNIQUE: CT of the abdomen and pelvis was obtained with 100 mL of Omnipaque 300intravenous contrast. Please note that all CT scans at this facility use dose modulation,iterative reconstruction, and/or weight-based dosing when appropriate toreduce radiation dose to as low as reasonably achievable. COMPARISON: 10/05/2008. FINDINGS: Lower thorax: Mild bilateral dependent atelectasis. Liver and biliary tree: Normal. Gallbladder: Normal. Spleen: Normal. Pancreas: Normal. Adrenal glands: Normal. Kidneys and ureters: 1.6 centimeter right renal cyst. Additionalsubcentimeter hypoattenuating lesions are too small to characterize andare favored to represent cysts. No hydronephrosis or obstructing renalcalculi. Gastrointestinal tract: Moderate stool burden is seen throughout thecolon. Mild colonic diverticulosis without CT evidence of acutediverticulitis. No evidence of acute appendicitis. Moderately distendedstomach with debris inside. Nonspecific mildly prominent small bowelmeasuring up to 2.7 centimeter (2/101). There is a focal area of narrowing(4/65). Peritoneal cavity: Mild mesenteric edema. Trace free fluid within theabdomen and pelvis. Bladder: Normal. Pelvic organs: Mildly enlarged prostate. Vasculature: Mild calcification. Lymph nodes: Normal. Abdominal wall: Normal. Musculoskeletal: Mild degenerative changes of the bilateral hips and ofthe visualized spine. IMPRESSION: 1. Mildly distended stomach with debris inside. Consider correlation withrecent oral intake and symptoms of delayed gastric emptying. 2. Nonspecific mildly prominent small bowel measuring up to 2.7 centimeterin the left abdomen with mild associated mesenteric edema. Findings mayrepresent infectious or inflammatory enteritis or developing small bowelobstruction given possible focal area of narrowing in the left lowerquadrant of the abdomen. Trace free fluid within the abdomen and pelvis. Please note that all CT scans at this facility use dose modulation,iterative reconstruction, and/or weight-based dosing when appropriate toreduce radiation dose to as low as reasonably achievable. Dictated by Tomasz Ward MD @ 12/13/2024 4:51:30 PM (Electronically Signed) us Torres HUNTER CT Final Re sult * EKG 12 LEAD (12/13/2024 3:59 PM CDT) Interpretation Normal sinus rhythm Normal ECG When compared with ECG of 07-Jun-2023 13:24, No significant change was found BEYOND NOW Ventricular Rate 83 BPM BEYOND NOW Atrial Rate 83 BPM BEYOND NOW P-R Interval 132 ms BEYOND NOW QRS Duration 70 ms BEYOND NOW QT 370 ms BEYOND NOW QTc 434 ms BEYOND NOW P Moran 31 degrees BEYOND NOW R Moran 57 degrees BEYOND NOW T Moran 46 degrees BEYOND NOW 12/13/2024 3:59 PM CDT 12/14/2024 2:50 AM CDT us Torres HUNTER EKG ORD Final Re sult BEYOND NOW [place], [place] * TROPONIN T (HS) ACUTE W/2HR REFLEX (12/13/2024 3:05 PM CDT) TROPONIN T HS 6 6-15 ng/L ng/L 12/13/2024 3:33 PM CDT [facility] Blood BLOOD SPECIMEN / Unknown IV Start / Unknown 12/13/2024 3:05 PM CDT 12/13/2024 3:10 PM CDT Narrative [facility] - 12/13/2024 3:33 PM CDT hs-cTnT (Elecsys Troponin T Gen 5) concentration (s) above the sex-specific 99th percentile (16 ng/L or greater for males or 11 ng/L or greater for females) are indicative of myocardial injury. If initial hs-cTnT <=100 ng/L at presentation, a 0h/2h ABSOLUTE (ng/L) delta change (rising or falling) of >=10 ng/L suggests a significant change, whereas a 0h/2h delta change <=3 ng/L suggests no significant change. If initial hs-cTnT >100 ng/L at presentation, a 0h/2h/ RELATIVE (percent, %) delta change of 20% is suggested to distinguish patients with acute vs. chronic myocardial injury. There are multiple etiologies that can cause hs-cTnT increases above the 99th percentile (myocardial injury) other than acute myocardial infarction. Clinical context and careful clinical evaluation are critical for diagnosis and risk-stratification. The diagnosis of acute myocardial infarction requires a rising and/or falling pattern in hs-cTnT concentrations with at least one value above the sex-specific 99th percentile PLUS at least one of the following clinical criteria: ischemic symptoms, new or presumed new significant ST-T wave changes or new LBBB, development of pathological Q waves, imaging evidence of new loss of viable myocardium or new regional wall motion abnormality, or identification of intracoronary atherothrombosis or an acute angiographic culprit on coronary angiography. In appropriate low-risk patients with a non-ischemic electrocardiogram without active chest pain with a symptom onset >3-hours without recurrence, a single initial hs-cTnT<6 ng/L identifies patient with a very low risk in emergency department patient population. Torres HUNTER CHEMISTRY Final Re sult Performing Organization Address [facility] Co de Phone Number [facility] [address] [place] [address] * EXTRA TUBE LAVENDER (12/13/2024 3:05 PM CDT) Blood BLOOD SPECIMEN / Unknown IV Start / Unknown 12/13/2024 3:05 PM CDT 12/13/2024 3:16 PM CDT Doctor Unknown LABORATORY Final Result Performing Organization Address [facility] de Phone Number [facility] [address] [place] [address] * EXTRA TUBE BLUE (12/13/2024 3:05 PM CDT) Blood BLOOD SPECIMEN / Unknown IV Start / Unknown 12/13/2024 3:05 PM CDT 12/13/2024 3:16 PM CDT Doctor Unknown LABORATORY Final Result Performing Organization Address [facility] de Phone Number [facility] [address] [place] [address] * CBC W PLT NO DIFF (12/13/2024 3:05 PM CDT) WHITE BLOOD COUNT 8.3 4.5 - 11.0 thou/cu mm 12/13/2024 4:31 PM CDT [facility] RED BLOOD COUNT 5.49 4.30 - 5.90 mil/cu mm 12/13/2024 4:31 PM CDT [facility] HEMOGLOBIN 17.0 13.5 - 17.5 g/dL 12/13/2024 4:31 PM [facility] HEMATOCRIT 49.6 37.0 - 53.0 % 12/13/2024 4:31 PM [facility] MCV 90 80 - 100 fL 12/13/2024 4:31 PM [facility] MCH 31.0 26.0 - 34.0 pg 12/13/2024 4:31 PM [facility] MCHC 34.3 32.0 - 36.0 g/dL 12/13/2024 4:31 PM [facility] RDW 13.1 11.5 - 15.5 % 12/13/2024 4:31 PM [facility] PLATELET COUNT 318 140 - 440 thou/cu mm 12/13/2024 4:31 PM [facility] MPV 10.2 6.5 - 11.0 fL 12/13/2024 4:31 PM [facility] Blood BLOOD SPECIMEN / Unknown IV Start / Unknown 12/13/2024 3:05 PM CDT 12/13/2024 3:16 PM CDT Torresshelley HUNTER HEMATOLOGY Final Re sult [facility] [address] [place] [address] * LIPASE (12/13/2024 3:05 PM CDT) LIPASE 24.9 13.0 - 60.0 IU/L 12/13/2024 3:33 PM CDT [facility] Blood BLOOD SPECIMEN / Unknown IV Start / Unknown 12/13/2024 3:05 PM CDT 12/13/2024 3:10 PM CDT Torres HUNTER CHEMISTRY Final Re sult [facility] [address] [place] [address] * Hemoglobin A1C (12/13/2024 3:05 PM CDT) [facility] HEMOGLOBIN A1C MONITORING (POCT) 6.3 <=6.4 % 12/14/2024 6:27 PM CDT [facility] Blood BLOOD SPECIMEN / Unknown IV Start / Unknown 12/13/2024 3:05 PM CDT 12/13/2024 3:16 PM CDT [facility] - 12/14/2024 6:27 PM CDT (<=6.9%) Indicates good control (7.0% to 7.9%) Indicates fair control (>=8.0%) Indicates poor control NOTE: These thresholds are guidelines and individual targets may vary. Falsely low levels may be seen with: Recent Transfusion, Recent Significant Blood Loss, Hemolytic Diseases, or Falsely elevated levels may be seen with: Untreated Anemias, Splenectomy Donte Orantes [facility] CHEMISTR[facility] Final Result [facility] [address] [place] [address], * HEPATIC FUNCTION PANEL (12/13/2024 3:05 PM CDT) [facility] ALBUMIN 4.7 4.0 - 4.9 g/dL 12/13/2024 3:33 PM CDT [facility] PROTEIN,TOTAL 7.1 6.0 - 8.0 g/dL 12/13/2024 3:33 PM T [facility] BILIRUBIN,TOTAL 0.5 0.0 - 1.2 mg/dL 12/13/2024 3:33 PM CDT [facility] BILIRUBIN,DIRECT 0.2 0.0 - 0.2 mg/dL 12/13/2024 3:33 PM T [facility] BILIRUBIN,INDIRE CT 0.3 0.2 - 0.8 mg/dL 12/13/2024 3:33 PM T [facility] ALK PHOSPHATASE 69 40 - 129 IU/L 12/13/2024 3:33 PM T [facility] ALT (SGPT) 17 10 - 50 IU/L 12/13/2024 3:33 PM CDT [facility] AST (SGOT) 23 10 - 50 IU/L 12/13/2024 3:33 PM CDT [facility] Blood BLOOD SPECIMEN / Unknown IV Start / Unknown 12/13/2024 3:05 PM CDT 12/13/2024 3:10 PM CDT us Torres Carson HUNTER CHEMISTRY Final Re sult [facility] [address] [place] [address] from Last 3 Months Insurance [employer] OF [place] Advance Directives * Full Code (Latest Code Status on File) Date Activated Date Inactivated Comments 12/13/2024 8:44 PM Question Answer Comments Code Status Discussion: Reviewed Preferences 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
--- OUTSIDE RECORDS SUMMARY | 2024-12-18 15:30 | XMS_ITS | Clinical Summary ---
Author Organization [facility] Address [address] [place] [address] Care Team Providers Care Plastic Surgery Manager Name Role Phone Gigi Zuñiga M.D. Primary Care Provider + Source Comments Patient records contain information from all sites at [facility]. For routine questions regarding patient records, call [phone] during business hours, M-F 8:00 AM - 5:00 PM Central Time. Record requests for emergency care only can be directed to [phone] at any time.[facility] Allergies Active Allergy Reactions Criticality Noted Date Comments Oxycodone-Acetaminophen Itching,Hives (R eselect Reaction) 07/15/2013 Medications * This document contains information received from the source organization and may not represent a complete record from that organization. acetaminophen (TYLENOL 8 HR) 650 mg ER tablet Take 1,500 mg by mouth 4 (four) times a day as needed. 02/03/20 12 Active BD Ultra-Fine Mini Pen Needle 31 gauge x 3/16 needle USE TO INJECT SUB-Q TWO TIMES A DAY 200 each 04/15/19 21 Active melatonin 10 mg tablet Take 10 mg by mouth at bedtime. Active dextrose 40 % (dextrose) 40 % gel Take 15 g by mouth as needed for low blood sugar. 30 g 11 05/06/19 21 Active SUMAtriptan (Imitrex) 100 mg tablet Take 1 tablet (100 mg total) by mouth daily as needed for migraine. 9 tablet 1 10/31/19 21 Active trolamine salicylate (ASPERCREME) 10 % cream Apply 1 application topically 3 (three) times a day as needed for muscle/joint pain. 120 g 3 04/01/19 22 Active triamcinolone (KENALOG) 0.1 % ointment APPLY 1 APPLICATION TOPICALLY 2 TIMES A DAY NEEDED FOR IRRITATION OR RASH. APPLY TO AREA OF RASH. 60 g 1 01/27/20 22 Active metFORMIN (Glucophage) 1,000 mg tablet Take 1 tablet (1,000 mg total) by mouth 2 (two) times a day with meals. 180 tablet 3 05/11/19 25 Active atorvastatin (Lipitor) 40 mg tablet Take 1 tablet (40 mg total) by mouth at bedtime. 90 tablet 3 05/11/19 25 Active lisinopriL 10 mg tablet Take 1 tablet (10 mg total) by mouth daily. 90 tablet 3 05/11/19 25 Active ammonium lactate (Lac-Hydrin) 12 % lotion Apply 1 Application topically 2 (two) times a day. Apply to areas of callusing twice daily. 400 g 11 05/16/19 25 Active cholecalcifero l (Vitamin D3) 125 mcg (5,000 Unit) capsule Take 1 capsule (5,000 Units total) by mouth daily. 90 capsule 3 07/10/19 25 Active omeprazole (PriLOSEC) [address] capsule Take 1 capsule (40 mg total) by mouth daily. 90 capsule 07/10/19 25 Active propranoloL (InderaL) 20 mg tablet Take 1 tablet (20 mg total) by mouth 3 (three) times a day. 270 tablet 3 07/10/19 25 Active nitroglycerin (Nitrostat) 0.[address] 1 tablet (0.4 mg total) under the tongue every 5 (five) minutes as needed for chest pain. 25 tablet 1 07/10/19 [address] aspirin [address] tablet Take 1 tablet (81 mg total) by mouth daily. 90 tablet 3 07/10/19 25 Active blood-glucose sensor (FreeStyle Franco 3 Plus Sensor) deviceIndicati ons:Diabetes Mellitus Type 2 (HCC) 1 each every 15 (fifteen) days. Use as directed every 15 days. 6 each 07/11/19 25 Active celecoxib (CeleBREX) 200 mg capsule TAKE 1 CAPSULE BY MOUTH EVERY DAY NEEDED FOR PAIN SCORE 4-6 OUT OF 10 90 capsule 08/13/19 25 Active Ozempic 2 mg/dose (8 mg/3 mL) injectionIndic ations:Diabete s Mellitus Type 2 (HCC) INJECT 2MG SUBCUTANEOUS ONCE A WEEK 3 mL 12/13/19 25 Active semaglutide (Ozempic) 2 mg/dose (8 mg/3 mL) injectionIndic ations:Diabete s Mellitus Type 2 (HCC) Inject 2 mg under the skin every 7 (seven) days. 9 mL 1 07/11/19 25 025 Discontinued Active Problems Problem Noted Date Diagnosed Date Deficiency Vitamin D 10/23/2023 Hypertension Essential Primary 12/22/2021 Microalbuminuria 09/14/2021 Paresthetica Meralgia Left 11/05/2019 Overweight Body Mass Index 25-29.9 Adult 017 Overview (08/20/2016): Body mass index (BMI) 40.0-44.9, adult Rule activated problem due to BMI 40-44 posted on 08/15 at 06:09 CDT. Diabetes Mellitus Type 2 06/30/2016 Overview (07/29/2020): Images from the original note were not included. Diabetes Mellitus without Mention of Complication, Type II or Unspecified Type, Not Stated as Uncontrolled Normal sugar in 2013, Diagnosed in 2016 at [facility] During sugar check during hospitalization Results for DOUGLAS INGRAM ( ) as of 07/29/2020 16:09 Ref. Range 07/19/2020 18:21 07/19/2020 21:06 07/20/2020 00:11 07/20/2020 04:22 07/20/2020 06:26 Glucose, POCT, B Latest Ref Range: 70 - 140 mg/dL 198 (H) 249 (H) 201 (H) 150 (H) 129 Results for DOUGLAS INGRAM ( ) as of 07/29/2020 16:09 Ref. Range 11/05/2018 08:15 08/01/2019 08:09 11/05/2019 08:25 04/29/2020 08:17 Hemoglobin A1c, B Latest Ref Range: 4.2 - 5.6 % 6.8 (H) 9.0 (H) 6.7 (H) 6.9 (H) ER visit for hypoglycemia in 07/19/2020: Per EMS, patient was unresponsive upon arrival with a blood sugar of 36, he was given 200 mils of D10 IV as well as oral orange juice and has been feeling much improved Has been on insulin glargine since 02/2017 Prior to that he was on glimepiride and metformin Started Ozempic in 07/2019 Assessment & Plan (06/26/2024 9:36 AM CDT): Patient does have a history of type 2 diabetes with his most recent hemoglobin A1c 6.6% 2 months ago. We did review that diabetes puts him at higher risk for developing foot related complications such as diabetic foot ulcer and infection. For this reason, advise against picking at, peeling, burning or cutting the callus himself at home. This should be managed by a professional outside of routine callus maintenance consisting of use of a gentle pumice stone or file on the callus routinely. Patient expressed understanding was in agreement with the above plan. All questions were answered to his satisfaction today. He will follow up in Podiatry Clinic on an as-needed basis going forward. Insomnia 11/21/2012 Abuse Tobacco Smoking 08/14/2012 Hyperlipidemia 08/24/2011 Apnea Sleep Obstructive 08/15/2011 Overview (07/29/2020): Compliant on NIPPV Tear Calf Muscle Initial Right Encounters * This document contains information received from the source organization and may not represent a complete record from that organization. Date Type Department Care Team Description 12/13/2024 9:15 AM CDT - 12/13/2024 11:59 PM CDT Hospital Encounter Department of Laboratory Medicine in [place], [place] [address] [facility] [address] [phone] Gigi Zuñiga M.D. Diabetes Mellitus Type 2 (HCC) Discharge Disposition: Home or Self Care 12/13/2024 Results Follow-Up [facility] Department of Internal Medicine in [place], [place] [address] [place] [address] Roni Loza M.D. CBC with Differential, Blood, Comprehensive Metabolic Panel, Hemoglobin A1c 12/11/2024 Refill Department of Endocrinology in [address] [address] Lisa Gutierres P.A.-C. Med Refill 11/05/2024 Clinical Communication Department of Endocrinology in [address] [phone] [place], Blanka Montes R.N. Labs for endocrine 10/18/2024 Results Follow-Up Department of Sleep Medicine in [place] [address] [place] [address] Marilin Quiros M.D. Home sleep apnea test (HSAT) 10/18/2024 Clinical Communication Department of Sleep Medicine in [place] [address] [place] [address] Georgette Scott, [facility] 10/08/2024 11:30 AM CDT - 10/11/2024 11:59 PM CDT Hospital Encounter Department of Sleep Medicine in [address] [address] Marilin Quiros M.D. Apnea Sleep Obstructive Discharge Disposition: Home or Self Care 09/27/2024 2:15 PM CDT Telemedicine Department of Sleep Medicine in [place] [address] [place] [address] Marilin Quiros M.D. Apnea Sleep Obstructive (Primary Dx); Hypertension Essential Primary from Last 3 Months Immunizations Immunization Administration Dates Next Due DTaP (Infanrix, Tripedia) 10/18/2008 Influenza, Injectable, Mdck, Quadrivalent 11/02/2018 Influenza, Injectable, Quadrivalent 11/11/2014 Influenza, Seasonal, Injectable 11/12/2012 Influenza, Unspecified 11/13/2015,2014,10/15/2013,2012,11/01/2011,11/11/2010,11/12/2009 PCV13 08/27/2015 PCV20 06/14/2024 PPSV23 12/20/2012 RZV (SHINGRIX) 11/05/2018,05/09/2018 SARS-COV-2 (COVID-19) - PFIZ ER (Discontinued)(12 years or older) 05/14/2020,04/23/2020 Td Preservative Free (TENIVA C, DECAVAC) 08/06/2019 Td, (Adult) Unspecified 02/13/2002 Tdap 10/18/2008 influenza trivalent high dos e (HD)(PF) 11/12/2009 influenza trivalent vaccine (6 months and older)(PF) 11/27/2023 influenza vaccine quad (FLUZONE/FLUARIX) (6 months and older)(PF) 12/02/2021,11/19/2020,11/21/2019,2017,11/23/2016,11/13/2015 Family History Medical History Relation Name Comments Coronary artery disease Brother 1 daniel Obesity Brother 1 daniel Stroke Brother 1 daniel Obesity Brother 2 eugenie Stroke Brother 2 eugenie Depression Brother 3 roel Psychiatric Brother 3 roel Coronary artery disease Father edie Hyperlipidemia (high cholesterol) Father edie Obesity Father edie Asthma Mother joshua Emphysema Mother joshua Lung cancer Mother joshua Obesity Mother joshua Diabetes Sister 1 naresh Obesity Sister 1 naresh Sleep apnea Sister 1 naresh Hyperlipidemia (high cholesterol) Sister 2 viola Hypertension Sister 2 viola Obesity Sister 2 viola Sleep apnea Sister 2 viola Diabetes Sister 3 noah Hypertension Sister 3 noah Obesity Sister 3 noah Sleep apnea Sister 3 noah Basal cell carcinoma Neg Hx Melanoma Neg Hx Squamous cell carcinoma Neg Hx Relation Name Status Comments Brother 1 daniel Alive Brother 2 eugenie Brother 3 roel Father edie Alive Mother joshua Alive Sister 1 naresh Alive Sister 2 viola Sister 3 noah Social History Tobacco Use Types Packs/Day Years Used Date Smoking Tobacco: Every Day Cigarettes 1 46 Smokeless Tobacco: Never Tobacco Cessation:Ready to Q uit: No; Counseling Given: Yes Alcohol Use Standard Drinks/Week Comments Not Currently 0 (1 standard drink = 0.6 oz pur e alcohol) [facility] Utilities Answer Date Recorded In the past [...] your living situation today? I have a [facility] place to live 05/11/2024 Education Answer Date Recorded What is the highest level of school you have completed or the highest degree you have received? GED or equivalent 02/2019 Sex and Gender Information Value Date Recorded Sex Assigned at Male 01/18/2017 10:15 AM MERCHANT PATROLLER Legal Sex Male 9:34 AM MERCHANT PATROLLER Gender Identity Male 01/18/2017 10:15 AM MERCHANT PATROLLER Sexual Orientation Straight 01/18/2017 10 :15 AM MERCHANT PATROLLER Last Filed Vital Signs Vital Sign Reading Time Taken Comments Blood Pressure 126/82 06/14/2024 9:24 AM CDT Pulse 82 06/14/2024 9:22 AM CDT Temperature 36.9 C (98.4 F) 06/14/2024 9:22 AM CDT Respiratory Rate 16 06/14/2024 9:22 AM CDT Oxygen Saturation 97% 06/14/2024 9:22 AM CDT Inhaled Oxygen Concentration - - Weight 85.6 kg (188 lb 11.4 oz) 06/14/2024 9:22 AM CDT Height 174 cm (5' 8.5) 06/14/2024 9:22 AM CDT Body Mass Index 28.27 06/14/2024 9:22 AM CDT Plan of Treatment Upcoming Encounters Date Type Department Care Team (Latest Contact Info) Description 12/26/2024 8:00 AM MERCHANT PATROLLER Office Visit [facility] Department of Internal Medicine in [place], [place] [address] [place] [address] Gigi Zuñiga M.D. [address] [place] [phone] 12/26/2024 10:00 AM MERCHANT PATROLLER Office Visit Department of Endocrinology in [place], [place] [address] [place] [phone] Lisa Gutierres P.A.-C. [address] [place] [phone] Discharge Disposition: Home or Self Care Health Maintenance Due Date Last Done Comments CT Colonography 1965 Cologuard 1965 FIT 1965 Hepatitis C Screening 1965 Hepatitis B Vaccines (1 of 3 - 19+ 3-dose series) 1984 Lung Cancer Screening 08/01/2013 08/01/2012 Diabetic Eye Exam 02/09/2022 02/09/2021 (Pe rformed elsewhere), 02/14/2020 (Performed elsewhere), 01/17/2019 (Performed elsewhere), Additional history exists COVID-19 Vaccine ( season) 2024 11/27/2023, 11/25/2022, 12/02/2021, Additional history exists Urine Albumin 04/12/2025 04/12/2024, 02/14, 09/09/2021, Additional history exists Diabetic Office Visit with Foot Exam 05/10/2025 05/10/2024 (Performed elsewhere), 07/29/2020, 11/05/2018, Additional history exists Hemoglobin A1C 06/12/2025 12/13/2024, 11/15, 04/12/2024, Additional history exists Office Visit for Blood Pressure Check / Re-check 06/14/2025 06/14/2024 Tobacco Cessation counseling 06/14/2025 06/14/2024 Visit: Chronic Disease, age 18+ 06/14/2025 06/14/2024, 06/14/2024 Colonoscopy 09/30/2025 10/01/2015 Colorectal Cancer Screening 09/30/2025 Sodium Level 12/15/2025 12/15/2024, 11/0 02/2024, 12/13/2024, Additional history exists Creatinine Level (Kidney Function Test) 12/18/2025 12/18/2024, 12/16/2024, 12/15/2024, Additional history exists Potassium Level 12/18/2025 12/18/2024, 11/0 04/2024, 12/15/2024, Additional history exists Lipid (Cholesterol) Screening 04/12/2029 04/12/2024, 03/09/2023, 09/09/2021, Additional history exists DTaP,Tdap,and Td Vaccines (4 - Td or Tdap) 08/05/2029 08/06/2019, 10/18/2008, 10/18/2008, Additional history exists Zoster Vaccines Completed 11/05/2018, 05/09/2018 Depression Screening (Annual PHQ-2) Completed 06/14/2024, 06/14/2024 Pneumococcal vaccine (50+ years) Completed 06/14/2024, 08/27/2015, 12/20/2012 Influenza Vaccine Completed 10/12/2024, , 12/02/2021, Additional history exists IPV Vaccines Aged Out No longer eligi ble based on patient's age to complete this topic Procedures Procedure Name Priority Date/Time Associated Diagnosis Comments HEMOGLOBIN A1C, B Routine 12/13/2024 9:2 9 AM CDT Diabetes Mellitus Type 2 (HCC) COMPREHENSIVE METABOLIC PANEL, S/P Routine 12/13/2024 9:29 AM CDT Diabetes Mellitus Type 2 (HCC) CBC WITH DIFFERENTIAL, B Routine 12/13/2024 9:29 AM CDT Diabetes Mellitus Type 2 (HCC) HOME SLEEP APNEA TEST (HSAT) Routine 10/15/2024 6:35 PM CDT Apnea Sleep Obstructive ALBUMIN, RANDOM, U Routine 04/12/2024 7: 54 AM MERCHANT PATROLLER Diabetes Mellitus Type 2 (HCC) LIPID PANEL, S Routine 04/12/2024 7:38 AM MERCHANT PATROLLER Diabetes Mellitus Type 2 (HCC) Hyperlipidemia CT CHEST WITH IV CONTRAST Routine 08/01/2012 8:10 AM CDT from Last 3 Months or Most Recently Relevant to Health Maintenance Results * CBC with Differential, Blood (12/13/2024 9:29 [...] Zuñiga M.D. LAB BLOOD ADD-ON Final R [employer] Performing Organization Address [facility] Co de Phone Number [facility] [address] [place] [address], [facility] [facility] in [place] [address] [place] [phone] * (ABNORMAL) Hemoglobin A1c (12/13/2024 9:29 AM [...] M.D. LAB BLOOD ADD-ON Final R esult [facility] [address] [facility] [place] [address], [facility] [facility] in [place] [address] [place] [address] * (ABNORMAL) Comprehensive Metabolic Panel (12/13/2024 9:29 [...] M.D. LAB BLOOD ADD-ON Final R esult Performing Organization Address [facility] Co de Phone Number [facility] [address] [place] [address], [place] [facility] in [place] [address] [place] [address] * Home sleep apnea test (HSAT) (10/15/2024 6:35 PM CDT) Narrative ONBASE - 10/18/2024 9:59 AM CDT SUMMARY Home sleep apnea testing (WatchPAT) performed 10/13/2024 demonstrated a probable apnea hypopnea index (pAHI 3%) of 36.7 per hour, a probable apnea hypopnea index (pAHI 4%) of 28.9 per hour, with probable respiratory disturbance index (pRDI) of 42.6 per hour, mostly driven by obstructive sleep disordered breathing events in the supine sleep position. Oxyhemoglobin saturation monisha was 80%, mean was 93%, and T88 (recording time percentage below ideal) was 9.8 minutes. Total recording time was 9 hours, 59 minutes, with estimated total sleep time of 9 hours, 5 minutes. CLINICAL INTERPRETATION Moderate to severe obstructive sleep apnea. RECOMMENDATION: Recommend an all night titration polysomnogram versus a trial of auto CPAP 5-15 cmH2O with an overnight oximetry to be performed while on treatment. Recommend follow-up in Sleep Medicine clinic to review the results of this home sleep apnea test and to avoid driving when drowsy. us Marilin Quiros M.D. SLEEP CENTER ORDERABLES Fi nal Result Performing Organization Address City/[facility]/ZIP Co de Phone Number ONBASE NA * (ABNORMAL) Albumin, Random, Urine (04/12/2024 7:54 AM MERCHANT PATROLLER) Albumin, Random, U 55.8 mg/L 2024 12:21 PM MERCHANT PATROLLER [facility] Comment: ----ADDITIONAL INFORMATION---- This test has been modified from the brineyard supervisor's instructions. Its performance characteristics were determined by [facility] in a manner consistent with CLIA requirements. This test has not been cleared or approved by the U.S. Food and Drug Administration. Creatinine 194 mg/dL 04/12/2024 12:21 PM MERCHANT PATROLLER [facility] Albumin/Creatinine Ratio 29(H) <17 mg/g 04/12/2024 12:21 PM MERCHANT PATROLLER [facility] Urine (Urine, Midstream) 04/12/2024 7:54 AM MERCHANT PATROLLER 04/12/2024 11:39 AM MERCHANT PATROLLER Lisa Gutierres P.A.-C. LAB URINE ORDERABLES F inal Result [facility] [address] [place] [address], [facility] [place] [address] * (ABNORMAL) Lipid Panel (04/12/2024 7:38 AM MERCHANT PATROLLER) Triglycerides 53 mg/dL 04/12/2024 8:37 AM MERCHANT PATROLLER [facility] Comment: ----REFERENCE VALUE---- Normal: <150 mg/dL Borderline High: 150-199 mg/dL High: 200-499 mg/dL Very High: > or =500 mg/dL Cholesterol, Total 78 mg/dL 2024 8:37 AM MERCHANT PATROLLER [facility] Comment: ----REFERENCE VALUE---- Desirable: < 200 mg/dL Borderline High: 200 - 239 mg/dL High: > or = 240 mg/dL Cholesterol, LDL, Calculated 27 mg/dL 04/12/2024 8:37 AM MERCHANT PATROLLER [facility] Comment: ----REFERENCE VALUE---- Desirable: <100 mg/dL Above Desirable: 100-129 mg/dL Borderline High: 130-159 mg/dL High: 160-189 mg/dL Very High: >=190 mg/dL ----ADDITIONAL INFORMATION---- LDL cholesterol calculated using the Monroe/NIH equation. Cholesterol, HDL 38(L) >=40 mg/dL 04/12/19 8:37 AM MERCHANT PATROLLER [facility] Cholesterol, Non-HDL, Calculated 40 mg/dL 04/12/2024 8:37 AM MERCHANT PATROLLER [facility] Comment: ----REFERENCE VALUE---- Desirable: <130 mg/dL Above Desirable: 130-159 mg/dL Borderline High: 160-189 mg/dL High: 190-219 mg/dL Very High: > or =220 mg/dL Fasting (8 HR or more) Yes 04/12/2024 7:38 AM MERCHANT PATROLLER [facility] Blood (Blood, Venous) 04/12/2024 7:38 AM MERCHANT PATROLLER 04/12/2024 7:38 AM MERCHANT PATROLLER us Gigi Zuñiga M.D. LAB BLOOD ADD-ON Final R esult [facility] [address] [place] [address], [facility] in [place] [address] [place] [address] * CT Chest with IV Contrast (08/01/2012 8:10 AM CDT) Anatomical Region Laterality Modality Chest N/A Computed Tomogra phy 08/01/2012 8:10 AM CDT Addenda Addendum by Provider, Eric Kraft on 08/01/2012 8:10 AM CDT RAD^^^MA CT CHEST W CONTRAST 08/01/2012 08:10:00 Narrative 08/01/2012 8:58 AM CDT EXAM: CT Chest w/ contrast INDICATION: Right Pulmonary Nodule/hilar shadow FINDINGS/impression: CT of the chest performed with intravenous contrast and compared with previous chest film of 07/11/2012 which showed prominence and the right hilum. No significant hilar or mediastinal lymphadenopathy. Prominent vessels. Pulmonary arteries are clear. No evidence of pulmonary embolism. Prominent azygos vein, suspect this is the density noted on plain film. Lung parenchyma grossly clear. No pleural effusions. No acute or significant chest abnormality. Procedure Note Dannie Shin M.D. / ProviderSwapnil M.D. - 07/01/2016 EXAM: CT Chest w/ contrast INDICATION: Right Pulmonary Nodule/hilar shadow FINDINGS/impression: CT of the chest performed with intravenous contrast and compared with previous chest film of 07/11/2012 which showed prominence and the right hilum. No significant hilar or mediastinal lymphadenopathy. Prominent vessels. Pulmonary arteries are clear. No evidence of pulmonary embolism. Prominent azygos vein, suspect this is the density noted on plain film. Lung parenchyma grossly clear. No pleural effusions. No acute or significant chest abnormality. us Lizy Martinez(R)(CT) IMG CT PROCEDURE S Edited Result - Final from Last 3 Months or Most Recently Relevant to Health Maintenance Care Teams Plastic Surgery Manager Relationship Specialty Start Date End Date Gigi Zuñiga M.D. [address] [place] [id number] PCP - General 07/28/16
--- NOTE | 2024-12-18 15:47 | ED.GENADULT ---
HPI - General Adult General Chief complaint: Abdominal Pain Stated complaint: bowel blockage Time Seen by Provider: 12/18/24 15:47 History of Present Illness HPI narrative: Patient presents to the emergency department complaining of abdominal pain. Patient states he was admitted to [facility] and left today early per patient request . Patient has been vomiting since he left. 59-year-old man presenting to the emergency department in intense pain in his abdomen and back. Apparently over the last 5 days has been struggling with abdominal pain. [facility] and discharged per his preference leaving earlier today. No bowel movement was managed today. Yesterday he says the barrie squirts he produced would not consider to be bowel movements. Has continued to vomit and pain has escalated. Notes that had 2 blockages bowel obstruction for which he was hospitalized and sounds like had an NG tube. Says he was passing gas he thinks in the waiting room here. Was noted to be seated in the chair with his phone and then fell forward from his wheelchair without apparent injury. Able to get up without difficulty. Arrives moaning in apparent pain. Complaining in particular of back pain now as well. No hematuria or dysuria noted. Does endorse a history of kidney stones but this seems different. We discuss what sort of pain medications he might need and he notes that morphine does not work for him. Acknowledges that when he was younger did all sorts of drugs. Does also have a history of diabetes and looks like uses semaglutide which he has taken for couple of years. Reviewing recent history with Mr. Rodriguez is that 5 days ago had been to a [employer] and managed to eat a little bit of food then developed sudden mid upper abdominal and right upper abdominal pain that was radiating into his back. He was thinking maybe it was his gallbladder. He began vomiting and eventually presented to the emergency department. Later able to obtain some records from [facility]. Was admitted with small-bowel or partial small-bowel obstruction. Acute gastroenteritis. Acute on chronic constipation. Question of gastroparesis suspected with combination of diabetes, semaglutide and history of chronic constipation. Initial CT imaging on 12/13 showing mildly distended stomach and mildly prominent small bowel up to 2.7 cm in the left abdomen with mesenteric edema. On 12/[address] chest abdomen pelvis noting worsening dilated fluid filled loops of small bowel with increasing mesenteric edema Mr. Rodriguez a little bashfully admits that he left the hospital today around 1:00 p.m. and maybe an hour and a half later maybe to started to have increasing pain in abdomen and back and then vomiting all around the same time. He had been tolerating liquids he says but was not completely pain free but felt like he was not getting clarification on what was going on. Became frustrated. Related Data Home Medications ?Medication ?Instructions ?Recorded ?Confirmed atorvastatin 40 mg tablet 40 mg PO QPM 12/18/24 12/18/24 cholecalciferol (vitamin D3) 125 125 mcg PO DAILY 12/18/24 12/18/24 mcg (5,000 unit) capsule lisinopril 10 mg tablet 10 mg PO DAILY 12/18/24 12/18/24 metformin 1,000 mg tablet 1,000 mg PO BID 12/18/24 12/18/24 nitroglycerin 0.4 mg sublingual mg sublingual 12/18/24 tablet omeprazole 40 mg capsule,delayed 40 mg PO DAILY 12/18/24 12/18/24 release propranolol 20 mg tablet 20 mg PO 3XD 12/18/24 12/18/24 semaglutide 2 mg/dose (8 mg/3 mL) 2 mg subcut 12/18/24 subcutaneous pen injector (Ozempic) Allergies Allergy/AdvReac Type Severity Reaction Status Date / Time No Known Drug Allergies Allergy Verified 12/18/24 15:42 Review of Systems Status of ROS: Reports: 6 or more systems reviewed and unremarkable except as noted in History and below [facility] Medical History (Updated 12/18/24 @ 19:07 by Piotr Granger MD) Hyperlipidemia ?E78.5 - Hyperlipidemia, unspecified (ICD-10) History of substance use disorder ?Z87.898 - Personal history of other specified conditions (ICD-10) GUADALUPE (obstructive sleep apnea) ?G47.33 - Obstructive sleep apnea (adult) (pediatric) (ICD-10) GERD (gastroesophageal reflux disease) ?K21.9 - Gastro-esophageal reflux disease without esophagitis (ICD-10) HTN (hypertension) ?I10 - Essential (primary) hypertension (ICD-10) Diabetes type 2 ?E11.9 - Type 2 diabetes mellitus without complications (ICD-10) Social History Smoking Status: Never smoker How often do you have a drink containing alcohol: never AUDIT-C Alcohol total score: 0 Non-prescribed substance use: denies use Exam Narrative: Exam Narrative: Arrives moaning in apparent pain. Head is atraumatic.. Labored in his breathing. Edentulous. Lungs are clear with breath sounds throughout. Examination of mid back shows a great deal tension and pain in the right paraspinal musculature. Abdomen appears distended. Soft but guards intensely in pain to palpation about the right upper abdomen diffusely. Hyperactive bowel sounds are present. Extremities are well perfused without edema. Moving all extremities without difficulty. Re-examination after medications he is quite comfortable. Has not been vomiting. Abdomen still with bowel sounds. He guards in pain through all but the left upper abdomen. I would say right upper abdomen remains most tender location. Const: Vital Signs, click to edit/add: Vital Signs - 24 hr 12/18/24 15:37 12/18/24 15:38 12/18/24 15:41 Temperature 98 F Pulse Rate 92 78 Pulse Rate [Right Pulse Oximeter] 78 Respiratory Rate 18 Blood Pressure 159/106 H 160/109 H Blood Pressure [Ri ght Upper Arm] 160/109 H Pulse Oximetry 96 95 95 Oxygen Delivery Me thod Room Air 12/18/24 16:01 12/18/24 16:01 12/18/24 16:21 Temperature Pulse Rate 89 91 Pulse Rate [Right Pulse Oximeter] Respiratory Rate Blood Pressure 136/75 133/71 Blood Pressure [Ri ght Upper Arm] Pulse Oximetry 94 96 94 Oxygen Delivery Me thod 12/18/24 17:02 12/18/24 17:22 12/18/24 17:39 Temperature Pulse Rate 90 95 88 Pulse Rate [Right Pulse Oximeter] Respiratory Rate 17 19 18 Blood Pressure 114/71 117/73 131/87 Blood Pressure [Ri ght Upper Arm] Pulse Oximetry 94 95 93 Oxygen Delivery Me thod Documenting provider has reviewed patient's vital signs: yes Course Vital Signs Vital signs: Initial Vital Signs Pulse Rate 92 12/18/24 15:37 Blood Pressure 159/106 H 12/18/24 15:37 Blood Pressure Mean 123 H 12/18/24 15:37 Pulse Oximetry 96 12/18/24 15:37 Vital Signs Pulse Rate 92 12/18/24 15:37 Blood Pressure 159/106 H 12/18/24 15:37 Pulse Oximetry 96 12/18/24 15:37 Temperature 98 F 12/18/24 15:38 Pulse Rate 88 12/18/24 17:39 Respiratory Rate 18 12/18/24 17:39 Blood Pressure 131/87 12/18/24 17:39 Pulse Oximetry 93 12/18/24 17:39 Oxygen Delivery Method Room Air 12/18/24 15:38 Medications Administered Medications: Discontinued Medications Generic Name Dose Route Start Last Admin Trade Name Milton PRN Reason Stop Dose Admin Hydromorphone HCl 1 mg 12/18/24 15:56 12/18/24 16:18 Hydromorphone 0.5 Mg/0.5 Ml Inj IVP 12/18/24 15:57 1 mg ONCE ONE Administration Sodium Chloride 1,000 mls @ 1,000 mls/hr 12/18/24 15:56 12/18/24 17:38 0.9 % Sodium Chloride 1000 Ml IV 12/18/24 16:55 Infused .Q1H ONE Infusion Ketorolac Tromethamine 15 mg 12/18/24 15:56 12/18/24 16:13 Ketorolac 15 Mg/Ml Inj IVP 12/18/24 15:57 15 mg ONCE ONE Administration Ondansetron HCl 4 mg 12/18/24 15:56 12/18/24 16:16 Ondansetron 2 Mg/Ml Inj IVP 12/18/24 15:57 4 mg ONCE ONE Administration Medical Decision Making [facility] Narrative Medical decision making narrative: Differential includes gas related pain, small-bowel obstruction, perforation of viscus, gallbladder disease with biliary colic, GERD, pancreatitis, vascular dissection, gastroenteritis, constipation among other. Abdominal pain otherwise could be related to semaglutide. Anticipating need for repeat CT imaging. Might need ultrasound. Just prior to imaging returns with moderately elevated D-dimer. I think shortness of breath is primarily due to degree of pain and probably muscle spasm but this back pain could also represent pulmonary embolus. Will expand imaging to include contrasted chest abdomen pelvis. Monitor for evidence of arrhythmia as well given this tumble and possible brief syncopal episode. I do clarifies events where he tipped out of his chair in the waiting room. He says he was just leaning over in so much pain and just kept going. He thinks he blacked out for a 2nd woke up on the floor. Alerted quickly and was able to get to his feet with minimal assistance.. He is quite certain he did not hit his head and does not have any pain elsewhere. Was not experiencing discrete chest pain at that time. He does apparently have a history of chest pain however for which he had been prescribed nitro. Goes on to say that correlated somehow with sleeping difficulties by which I understand sleep apnea. Has not been using his CPAP lately as the puppy chewed his mask. Is waiting on a new machine now. Partly related to significant weight loss since initiating semaglutide might require different mask anyway. But says that does not have any heart problems. He reports having negative CT imaging related to his heart and negative angiography. The nitro was for these unclear chest pains. Family history otherwise with early cardiac related and cholelithiasis. Marked improvement in symptoms after medications including Dilaudid Zofran Toradol and normal saline. He is pleasantly talkative and jokes around. By my independent review of chest abdomen pelvis CT there is marked dilatation of small bowel. There looks to be some ascites and edema in the left upper quadrant. I do not see free air. Radiology over-read below COMPARISON: 12/15/2024. FINDINGS: Lower thorax: Please see separately dictated same day report. Liver and biliary tree: Normal. Gallbladder: Normal. Spleen: Normal. Pancreas: Normal. Adrenal glands: Normal. Kidneys and ureters: Right renal cyst. Additional subcentimeter hypoattenuating lesions are too small to characterize and are favored to represent cysts. No hydronephrosis or obstructing renal calculi. Gastrointestinal tract: Mild gaseous prominence of the colon measuring up to 6.0 centimeter (2/35). No evidence of acute appendicitis. Moderately dilated small bowel loops measuring up to 4.9 centimeter (2/71) with associated air-fluid levels. Transition point is seen likely in the right upper quadrant of the abdomen. Peritoneal cavity: Small amount of intra-abdominal ascites. Moderate mesenteric edema. Small amount of interloop free fluid. Bladder: Normal. Pelvic organs: Normal. Vasculature: Moderate calcification. Lymph nodes: Normal. Abdominal wall: Normal. Musculoskeletal: Lecj-ex-tjvzwzuq degenerative changes of the bilateral hips and of the visualized spine. IMPRESSION: 1. Moderately dilated small bowel loops measuring up to 4.9 centimeter with air-fluid levels again seen and likely transition point in the right upper quadrant of the abdomen. Moderate mesenteric edema with small amount of interloop free fluid may represent developing ischemia in the setting of small-bowel obstruction. 2. Small amount of intra-abdominal ascites. Please note that all CT scans at this facility use dose modulation, iterative reconstruction, and/or weight-based dosing when appropriate to reduce radiation dose to as low as reasonably achievable. Dictated by Tomasz Ward MD @ 12/18/2024 5:37:22 PM CTA chest independently reviewed by me without apparent infiltrate or dissection or pulmonary embolus Radiology over-read below Indication: RIGHT SIDED BACK PAIN, DYSPNEA, ELEVATED D-DIMER Technique: CT angiogram of the chest was performed for evaluation of pulmonary embolism. 95 mL of Isovue 370 intravenous contrast was administered. Comparison: 12/15/2024. Findings: CARDIOVASCULAR: Diagnostic quality: Contrast opacification of the pulmonary arterial circulation is adequate for assessment of pulmonary embolism. Study is not significantly limited by respiratory motion artifact. Pulmonary arteries: No filling defects to suggest pulmonary embolism. Not enlarged. Heart: No interventricular septal deviation. Normal in size. Mild coronary artery calcification. No significant valvular calcification. Pericardium: No pericardial effusion. Thoracic aorta: No significant abnormality. Normal cervical branching. REMAINING CHEST: Medical devices: None. Thyroid: 1.0 centimeter calcified right thyroid nodule (4/72). No further imaging is recommended for incidental thyroid nodules measuring < 1.5 cm in an adult patient <= 35 years of age. Adapted from Consensus Recommendations, J Am Lorenzo Radiol 2015;12:143???150. Lymph nodes: No supraclavicular, axillary, mediastinal, or hilar lymphadenopathy. Other mediastinal structures: No significant abnormality. Lung parenchyma: Mild right lower lobe linear atelectasis. Airways: Hpjj-vb-zzvicvqc bronchial wall thickening. Pleura: No significant abnormality. Chest wall: No significant abnormality. Upper abdomen: Please see separately dictated same day report. Musculoskeletal: No significant abnormality. Impression: 1. No acute pulmonary embolism. 2. Knui-th-niqxroil bronchial wall thickening may represent areas of infection or inflammation. Please note that all CT scans at this facility use dose modulation, iterative reconstruction, and/or weight-based dosing when appropriate to reduce radiation dose to as low as reasonably achievable. Dictated by Tomasz Ward MD @ 12/18/2024 5:50:34 PM With initial trigger apparently being [employer] and with pain radiating into his back, I did also request that an ultrasound of his gallbladder. Due to bowel gas this is ultimately proved difficult to visualize gallbladder. I was present for a time observing study with part maker. INDICATION: Right upper quadrant pain. TECHNIQUE: Ultrasound abdomen limited. Sonographic images of the right upper quadrant were obtained using shore-scale and color Doppler images. COMPARISON: Same day CT abdomen and pelvis with contrast. FINDINGS/IMPRESSION: Nondiagnostic, incomplete examination secondary to excessive bowel gas obscuring view. The gallbladder is not visualized. Dictated by Billie Montoya MD @ 12/18/2024 6:50:59 PM Has remained comfortable since initial medication dosing. Vitals are improved. Labs are overall reassuring. I do not see sepsis here. Have discussed this case with General surgery. Continue IV hydration. And anticipating admission for bowel rest and potential surgery. Discussed with hospitalist for admission. Medical Records Medical records reviewed: Yes I reviewed the patient's medical records Lab Data Lab results reviewed: Yes I reviewed the patient's lab results Labs: Lab Results 12/18/24 Range/Units 15:40 WBC 3.90 L (4.50-11.00) K/uL RBC 5.61 (4.30-5.90) m/uL Hgb 17.5 (13.5-17.5) gm/dL Hct 51.3 (37.0-53.0) % MCV 91 (80-100) fL MCH 31 (26-34) pg MCHC 34 (32-36) gm/dL RDW Coeff of Christina 13.0 (11.5-15.5) % Plt Count 368 (140-440) K/uL Neut % (Auto) 63.0 (42.0-72.0) % Lymph % (Auto) 21.0 (20-44) % Willacy % (Auto) 14.1 H (0.0-11.0) % Eos % (Auto) 1.3 (0.0-7.0) % Baso % (Auto) 0.3 (0.0-3.0) % Neut # (Auto) 2.50 (1.7-7.0) K/uL Lymph # (Auto) 0.80 L (0.90-2.90) K/uL Willacy # (Auto) 0.50 (0.00-0.90) K/UL Eos # (Auto) 0.10 (0.00-0.50) K/uL Baso # (Auto) 0.00 (0.00-0.30) K/uL Abs Immat Gran (auto) 0.00 (0.00-0.30) K/uL Imm/Tot Granulo (auto) 0.3 % D-Dimer Quant (PE/DVT) 3.64 H (0.00-0.50) ug/ml VBG pH 7.445 H (7.32-7.43) VBG pCO2 48 (40-50) mmHG VBG pO2 < 30.1 (25-47) mmHG VBG HCO3 33 H (21-28) mmol/L Sodium 139 (135-149) mmol/L Potassium 4.6 (3.6-5.1) mmol/L Chloride 98 (96-114) mmol/L Carbon Dioxide 34 H (20-32) mmol/L Anion Gap 7 (7-15) mEq/L BUN 49 H (7-30) mg/dL Creatinine 0.9 (0.5-1.5) mg/dL Estimated GFR 98 ml/min Glucose 209 H (60-115) mg/dL Lactate 2.1 H (0.5-1.9) mmol/L Calcium 10.0 (8.4-10.6) mg/dL Total Bilirubin 1.4 (0.1-1.5) mg/dL Direct Bilirubin 0.4 (0.0-0.5) mg/dL AST 39 H (12-35) U/L ALT 33 (4-50) U/L Alkaline Phosphatase 59 (40-150) U/L Troponin I < 0.01 (0.01-0.04) ng/mL C-Reactive Protein 3.4 H (0.5-1.0) mg/dL NT-Pro-B Natriuret Pep 123 (See Note) pg/mL Total Protein 7.1 (6.0-8.3) g/dL Albumin 4.4 (3.3-5.0) g/dL Lipase 44 (23-300) U/L ECG Data Attestation: I personally reviewed and interpreted this ECG as follows: (Normal sinus rhythm. Rate of 77) Discharge Plan Discharge Clinical Impression: Small bowel obstruction, Gastritis, Muscle spasm Patient Disposition: Admitted As Inpatient Condition: Stable Procedures ABG Interpretation ABG Results: 12/18/24 15:40 VBG pH 7.445 H VBG pCO2 48 VBG pO2 < 30.1 VBG HCO3 33 H
--- NOTE | 2024-12-18 16:02 | CRLHL7_ITS ---
For Patients: As a result of the Century Cures Act, medical imaging exams and procedure reports are released immediately into your electronic medical record. You may view this report before your referring provider. If you have questions, please contact your health care provider. INDICATION: RECENT BOWEL OBSTRUCTION, PAIN TECHNIQUE: CT of the abdomen and pelvis was obtained with 95 mL of Isovue 370 intravenous contrast. Please note that all CT scans at this facility use dose modulation, iterative reconstruction, and/or weight-based dosing when appropriate to reduce radiation dose to as low as reasonably achievable. COMPARISON: 12/15/2024. FINDINGS: Lower thorax: Please see separately dictated same day report. Liver and biliary tree: Normal. Gallbladder: Normal. Spleen: Normal. Pancreas: Normal. Adrenal glands: Normal. Kidneys and ureters: Right renal cyst. Additional subcentimeter hypoattenuating lesions are too small to characterize and are favored to represent cysts. No hydronephrosis or obstructing renal calculi. Gastrointestinal tract: Mild gaseous prominence of the colon measuring up to 6.0 centimeter (2/35). No evidence of acute appendicitis. Moderately dilated small bowel loops measuring up to 4.9 centimeter (2/71) with associated air-fluid levels. Transition point is seen likely in the right upper quadrant of the abdomen. Peritoneal cavity: Small amount of intra-abdominal ascites. Moderate mesenteric edema. Small amount of interloop free fluid. Bladder: Normal. Pelvic organs: Normal. Vasculature: Moderate calcification. Lymph nodes: Normal. Abdominal wall: Normal. Musculoskeletal: Vaeo-td-fcyeslnl degenerative changes of the bilateral hips and of the visualized spine. IMPRESSION: 1. Moderately dilated small bowel loops measuring up to 4.9 centimeter with air-fluid levels again seen and likely transition point in the right upper quadrant of the abdomen. Moderate mesenteric edema with small amount of interloop free fluid may represent developing ischemia in the setting of small-bowel obstruction. 2. Small amount of intra-abdominal ascites. Please note that all CT scans at this facility use dose modulation, iterative reconstruction, and/or weight-based dosing when appropriate to reduce radiation dose to as low as reasonably achievable. Dictated by Tomasz Ward MD @ 12/18/2024 5:37:22 PM (Electronically Signed)
[2024-12-18 16:16] LABS: Hematocrit* 51.3 % (37.0-53.0); Hemoglobin* 17.5 gm/dL (13.5-17.5); Immature Granulocytes Pct Auto 0.3 %; Mean Corpuscular HGB Conc 34 gm/dL (32-36); Mean Corpuscular Hemoglobin 31 pg (26-34); Mean Corpuscular Volume 91 fL (80-100); RDW Coefficient of Variation % 13.0 % (11.5-15.5); Red Blood Count* 5.61 m/uL (4.30-5.90); White Blood Count* 3.90 K/uL (4.50-11.00)
[2024-12-18] MEDS: ONDANSETRON 2 MG/ML inj 4 MG IVP (16:16)
[2024-12-18 16:20] LABS: Albumin* 4.4 g/dL (3.3-5.0); Chloride* 98 mmol/L (96-114); Immature Granulocytes Abs Auto 0.00 K/uL (0.00-0.30); Lymphocytes Absolute Auto 0.80 K/uL (0.90-2.90); Potassium* 4.6 mmol/L (3.6-5.1); Slide Review Reflex No; Sodium* 139 mmol/L (135-149)
[2024-12-18 16:21] LABS: HCO3 VBG 33 mmol/L (21-28); Lactate* 2.1 mmol/L (0.5-1.9); PCO2 VBG 48 mmHG (40-50); PO2 VBG < 30.1 mmHG (25-47); pH VBG 7.445 (7.32-7.43)
[2024-12-18 16:22] LABS: Blood Urea Nitrogen* 49 mg/dL (7-30); Creatinine* 0.9 mg/dL (0.5-1.5); Estimated Glomerular Filt Rate 98 ml/min
[2024-12-18 16:23] LABS: Alanine Aminotransferase* 33 U/L (4-50); Alkaline Phosphatase* 59 U/L (40-150); Anion Gap 7 mEq/L (7-15); Aspartate Amino Transferase* 39 U/L (12-35); Bilirubin Direct* 0.4 mg/dL (0.0-0.5); Bilirubin Total* 1.4 mg/dL (0.1-1.5); Carbon Dioxide* 34 mmol/L (20-32); Total Protein* 7.1 g/dL (6.0-8.3)
[2024-12-18 16:24] LABS: Calcium* 10.0 mg/dL (8.4-10.6); D Dimer Quantitative* 3.64 ug/ml (0.00-0.50); Glucose* 209 mg/dL (60-115)
[2024-12-18 16:33] LABS: NT Pro B Type NatriureticPept* 123 pg/mL (See Note)
--- NOTE | 2024-12-18 16:42 | CRLHL7_ITS ---
For Patients: As a result of the Century Cures Act, medical imaging exams and procedure reports are released immediately into your electronic medical record. You may view this report before your referring provider. If you have questions, please contact your health care provider. Indication: RIGHT SIDED BACK PAIN, DYSPNEA, ELEVATED D-DIMER Technique: CT angiogram of the chest was performed for evaluation of pulmonary embolism. 95 mL of Isovue 370 intravenous contrast was administered. Comparison: 12/15/2024. Findings: CARDIOVASCULAR: Diagnostic quality: Contrast opacification of the pulmonary arterial circulation is adequate for assessment of pulmonary embolism. Study is not significantly limited by respiratory motion artifact. Pulmonary arteries: No filling defects to suggest pulmonary embolism. Not enlarged. Heart: No interventricular septal deviation. Normal in size. Mild coronary artery calcification. No significant valvular calcification. Pericardium: No pericardial effusion. Thoracic aorta: No significant abnormality. Normal cervical branching. REMAINING CHEST: Medical devices: None. Thyroid: 1.0 centimeter calcified right thyroid nodule (4/72). No further imaging is recommended for incidental thyroid nodules measuring < 1.5 cm in an adult patient <= 35 years of age. Adapted from Consensus Recommendations, J Am Lorenzo Radiol 2015;12:143???150. Lymph nodes: No supraclavicular, axillary, mediastinal, or hilar lymphadenopathy. Other mediastinal structures: No significant abnormality. Lung parenchyma: Mild right lower lobe linear atelectasis. Airways: Zlux-ph-wwvgubmt bronchial wall thickening. Pleura: No significant abnormality. Chest wall: No significant abnormality. Upper abdomen: Please see separately dictated same day report. Musculoskeletal: No significant abnormality. Impression: 1. No acute pulmonary embolism. 2. Mzfc-sg-bwkkrosq bronchial wall thickening may represent areas of infection or inflammation. Please note that all CT scans at this facility use dose modulation, iterative reconstruction, and/or weight-based dosing when appropriate to reduce radiation dose to as low as reasonably achievable. Dictated by Tomasz Ward MD @ 12/18/2024 5:50:34 PM (Electronically Signed)
--- NOTE | 2024-12-18 17:29 | CRLHL7_ITS ---
For Patients: As a result of the Cures Act, medical imaging exams and procedure reports are released immediately into your electronic medical record. You may view this report before your referring provider. If you have questions, please contact your health care provider. INDICATION: Right upper quadrant pain. TECHNIQUE: Ultrasound abdomen limited. Sonographic images of the right upper quadrant were obtained using shore-scale and color Doppler images. COMPARISON: Same day CT abdomen and pelvis with contrast. FINDINGS/IMPRESSION: Nondiagnostic, incomplete examination secondary to excessive bowel gas obscuring view. The gallbladder is not visualized. Dictated by Billie Montoya MD @ 12/18/2024 6:50:59 PM (Electronically Signed)
--- NOTE | 2024-12-18 18:40 | PM.IMHP1 ---
Assessment and Plan Assessment and plan (1) SBO (small bowel obstruction): Problem comment: -d/w Dr. Meraz. She has reviewed CTs from [facility] and ours. partial SBO likely. will pursue conservative care; repeat lactate and keep NPO, NG if needed. Status: Acute (2) Abdominal pain: Problem comment: keeping a wider differential: low WBC and high monocytes --> infectious (viral or parasite?) Stool studies ordered. - malignancy? IBD with bowel edema? Status: Acute (3) Diabetes type 2: Problem comment: well managed with metformin and GLP1 (holding both) accuchecks as he is NPO, will had D5 if needed or PPN Status: Acute (4) HTN (hypertension): Problem comment: lisinopril on hold; monitor pressures Status: Acute (5) Hyperlipidemia: Problem comment: statin on hold Status: Acute (6) GERD (gastroesophageal reflux disease): Problem comment: IV PPI Status: Acute (7) GUADALUPE (obstructive sleep apnea): Problem comment: mask doesn't fit properly; needs new study Status: Acute (8) History of CVA (cerebrovascular accident): Problem comment: early - Status: Acute Hospitalist- H&P: HPI History of Present Illness Date Seen: 12/18/24 Chief complaint: bowel blockage Narrative: ADMISSION HISTORY AND PHYSICAL - HOSPITALIST Chief Complaint: abdominal pain/atypical SBO HPI: MAGDA is a 59 y/o WM with a hx of HLP, GUADALUPE, DM, GERD, and distance hx of substance abuse who presents within hours of discharge from a local hospital. He apparently ate at a buffet on 12/13 and presented same day with abdominal pain/bloating/vomiting. He was admitted at a local hospital and was conservatively treated for SBO. He underwent serial exams, CT imaging, labs. His presentation and course were atypical as he passed contrast easily into his colon during but would have bouts of nausea/pain/vomiting requiring an NG tube. He had his NG removed 12/16 and attempted clears on 12/17 and tolerated a regular breakfast of cereal and banana this morning with a small diarrheal stool. He discharged home. Within 3-4 hours he was having intractable pain and vomited once. Pertinent facts He apparently had a syncopal or presyncopal episode in our waiting room; in a wheelchair - he leaned over with pain and sorta spilled out onto the carpet. no head injury. no LOC. No abdominal surgeries Last colonoscopy was 09/28 with 10 year f/u plan 130lb weight loss in the last 15 months; intentional and secondary to Ozempic. Bowel movements have been irregular in this time from constipated for days and then liquid stools No hx of travel [place], no exotic pets. No camping or supplement or exotic food intake distant hx of drinking and drugs >30 years ER COURSE: CT, labs, analgesia, antiemetics, fluids - general surg consult CODE STATUS: FULL CODE PCP: [facility] CONTACT PLAN: Shantelle Paganne Rel To Pat partner Cell I've updated the PFSH, medications and allergies in the Expanse tabs. INVESTIGATIONS: LABS/MICRO/ECG/IMAGING 131/87. Pulse 88. Respiratory 18. Afebrile. O2 sat 93% on room air. weight 88.11 kilos White blood cell count 3.9, hemoglobin 17.5, platelet count 368. Interestingly, monocytes are at 14%. D-Dimer 3.64 pH 7.445 normal electrolytes, a little dry with BUN of 49 and creat 0.9 glucose 209 lactate 2.1 crp 3.4 LFTS show minimal elevation in his AST only RUQ u/s incomplete/nondiagnostic 2/[address] abd/pelvis 1. Moderately dilated small bowel loops measuring up to 4.9 centimeter with air-fluid levels again seen and likely transition point in the right upper quadrant of the abdomen. Moderate mesenteric edema with small amount of interloop free fluid may represent developing ischemia in the setting of small-bowel obstruction. 2. Small amount of intra-abdominal ascites. CTA 1. No acute pulmonary embolism. 2. Axqt-fj-wreqvniy bronchial wall thickening may represent areas of infection or inflammation. No micro REVIEW OF SYSTEMS: 12-point ROS completed with patient and negative unless otherwise stated in HPI or below. PHYSICAL EXAM: CONSTITUTIONAL: Conversive, good historian. A/O. Knows setting and context. GENERAL: Well nourished. No respiratory distress. Speaks in full sentences. VITAL SIGNS: see record. HEENT: edentulous (he states his dentures don't fit b/c of weight loss) Sclerae are anicteric. No petechiae. CARDIAC: rhythm is regular. There is no S3 or rub. No harsh murmurs. Extremities show trace edema with symmetrical pulses. ABDOMEN: distended. +ramirez's sign. protective/winces with palpation into the right upper quadrant. no global tenderness. +bowel sounds NEURO: Speech is fluent. A brief neurologic exam is negative. SKIN: No rashes, petechiae, concerning changes PSYCHIATRIC: Euthymic. ADMIT TO MEDSURG: FLOOR CARE DVT: SCDs GI: PO intake Time spent: Today I spent 75 minutes seeing the patient, discussing the patient with ER staff, reviewing Expanse and EPIC notes/diagnostics, discussing the care plan with our care time that includes social work, PT/OT, pharmacy, RT, fpc and documenting my impressions and plan in the medical record. MEDICAL NECESSITY FOR HOSPITALIZATION Anticipated midnights in the hospital: 2 Admitting diagnosis: SBO Risk of morbidity and mortality: moderate Acuity is characterized as high and reflected in: protracted atypical course, diabetes, HTN This patient will require hospital services as outlined in the assessment and plan in order to stabilize and be safely discharged to a lower level of care. Because of the risk and acuity as described above, this patient cannot be managed at a lower level of care. LENGTH OF STAY: 2 IP ? Anticipated LOS>2 midnights due to acuity of clinical presentation requiring inpatient level of care [facility] Medical History (Updated 12/18/24 @ 21:28 by Lilliam Keller MD) Hyperlipidemia ?E78.5 - Hyperlipidemia, unspecified (ICD-10) History of substance use disorder ?Z87.898 - Personal history of other specified conditions (ICD-10) GUADALUPE (obstructive sleep apnea) ?G47.33 - Obstructive sleep apnea (adult) (pediatric) (ICD-10) GERD (gastroesophageal reflux disease) ?K21.9 - Gastro-esophageal reflux disease without esophagitis (ICD-10) HTN (hypertension) ?I10 - Essential (primary) hypertension (ICD-10) Diabetes type 2 ?E11.9 - Type 2 diabetes mellitus without complications (ICD-10) Social History Smoking Status: Never smoker How often do you have a drink containing alcohol: never AUDIT-C Alcohol total score: 0 Non-prescribed substance use: denies use Meds Home Medications and Allergies Home Medications ?Medication ?Instructions ?Recorded ?Confirmed ?Type atorvastatin 40 mg tablet 40 mg PO QPM 12/18/24 12/18/24 History cholecalciferol (vitamin D3) 125 125 mcg PO DAILY 12/18/24 12/18/24 History mcg (5,000 unit) capsule lisinopril 10 mg tablet 10 mg PO DAILY 12/18/24 12/18/24 History metformin 1,000 mg tablet 1,000 mg PO BID 12/18/24 12/18/24 History nitroglycerin 0.4 mg sublingual mg sublingual 12/18/24 History tablet omeprazole 40 mg capsule,delayed 40 mg PO DAILY 12/18/24 12/18/24 History release propranolol 20 mg tablet 20 mg PO 3XD 12/18/24 12/18/24 History semaglutide 2 mg/dose (8 mg/3 mL) 2 mg subcut 12/18/24 History subcutaneous pen injector (Ozempic) Allergies Allergy/AdvReac Type Severity Reaction Status Date / Time acetaminophen (From Percocet) Allergy Intermediate Hives Unverified 12/18/24 21:14 oxycodone (From Percocet) Allergy Intermediate Hives Unverified 12/18/24 21:14 Exam Const: Vital Signs, click to edit/add: Vital Signs - 24 hr 12/18/24 15:37 12/18/24 15:38 12/18/24 15:41 Temperature 98 F Pulse Rate 92 78 Pulse Rate [Right Pulse Oximeter] 78 Respiratory Rate 18 Blood Pressure 159/106 H 160/109 H Blood Pressure [Ri ght Upper Arm] 160/109 H Pulse Oximetry 96 95 95 [facility] 12/18/24 16:01 12/18/24 16:01 12/18/24 16:21 Temperature Pulse Rate 89 91 Pulse Rate [Right Pulse Oximeter] Respiratory Rate Blood Pressure 136/75 133/71 Blood Pressure [Ri ght Upper Arm] Pulse Oximetry 94 96 94 Oxygen Delivery Me thod 12/18/24 17:02 12/18/24 17:22 12/18/24 17:39 Temperature Pulse Rate 90 95 88 Pulse Rate [Right Pulse Oximeter] Respiratory Rate 17 19 18 Blood Pressure 114/71 117/73 131/87 Blood Pressure [Ri ght Upper Arm] Pulse Oximetry 94 95 93 Oxygen Delivery [facility] Hospitalist - H&P: Result Labs Labs: Short CBC 12/18/24 Range/Units 15:40 WBC 3.90 L (4.50-11.00) K/uL Hgb 17.5 (13.5-17.5) gm/dL Hct 51.3 (37.0-53.0) % Plt Count 368 (140-440) K/uL BMP 12/18/24 15:40 Sodium 139 Potassium 4.6 Chloride 98 Carbon Dioxide 34 H BUN 49 H Creatinine 0.9 Glucose 209 H Calcium 10.0 Cardiac Enzymes 12/18/24 Range/Units 15:40 Troponin I < 0.01 (0.01-0.04) ng/mL Liver Function 12/18/24 Range/Units 15:40 Total Bilirubin 1.4 (0.1-1.5) mg/dL Direct Bilirubin 0.4 (0.0-0.5) mg/dL AST 39 H (12-35) U/L ALT 33 (4-50) U/L Alkaline Phosphatase 59 (40-150) U/L Albumin 4.4 (3.3-5.0) g/dL
[2024-12-18 20:48] LABS: HCO3 VBG 28 mmol/L (21-28); Lactate* 0.9 mmol/L (0.5-1.9); PCO2 VBG 41 mmHG (40-50); PO2 VBG 70.3 mmHG (25-47); pH VBG 7.446 (7.32-7.43)
[2024-12-18 20:49] LABS: Procalcitonin* 0.09 ng/mL (<0.50)
[2024-12-18] MEDS: PANTOPRAZOLE SODIUM 40 MG INJ IVP (22:41)
--- NOTE | 2024-12-18 23:52 | PC.NURSE ---
End of Shift Note 259 Patient was very pleasant and cooperative since arrival. VSS. Patient reports pain tolerable after pain control administration. NPO. A&Ox4. SBA. Patient able to use call light appropriately. Call light within reach.
[2024-12-19] VITALS (28 sets, daily range): BP systolic 108–145; BP diastolic 71–97; PULSE 89–114; RESP 16–20; TEMP 35.8–37; O2SAT 89–96; BMI 29.5; BMI 29.7
[2024-12-19] MEDS: SODIUM CHLORIDE 0.9 % (FLUSH) 10 ML SYRINGE 5 ML IVF ×4 (04:01→08:49)
[2024-12-19] MEDS: LACTATED RINGERS 1000 ML 1,000 ML 125 ML IV ×2 (04:21→08:40)
[2024-12-19] MEDS: ACETAMINOPHEN INJ 1,000 MG/100 ML VIAL 400 MG IVPB (04:21)
[2024-12-19] MEDS: ONDANSETRON 2 MG/ML inj 4 MG IVP (06:26)
[2024-12-19 06:52] LABS: Lactate* 1.1 mmol/L (0.5-1.9)
[2024-12-19 07:04] LABS: Hematocrit* 42.7 % (37.0-53.0); Hemoglobin* 14.5 gm/dL (13.5-17.5); Immature Granulocytes Pct Auto 0.5 %; Mean Corpuscular HGB Conc 34 gm/dL (32-36); Mean Corpuscular Hemoglobin 31 pg (26-34); Mean Corpuscular Volume 92 fL (80-100); RDW Coefficient of Variation % 12.8 % (11.5-15.5); Red Blood Count* 4.66 m/uL (4.30-5.90); White Blood Count* 4.08 K/uL (4.50-11.00)
[2024-12-19 07:10] LABS: Chloride* 104 mmol/L (96-114)
[2024-12-19 07:11] LABS: Albumin* 3.2 g/dL (3.3-5.0); Potassium* 3.3 mmol/L (3.6-5.1); Sodium* 136 mmol/L (135-149)
[2024-12-19 07:13] LABS: Alanine Aminotransferase* 28 U/L (4-50); Aspartate Amino Transferase* 27 U/L (12-35); Blood Urea Nitrogen* 40 mg/dL (7-30); Creatinine* 0.7 mg/dL (0.5-1.5); Estimated Glomerular Filt Rate 106 ml/min
[2024-12-19 07:14] LABS: Alkaline Phosphatase* 50 U/L (40-150); Anion Gap 5 mEq/L (7-15); Bilirubin Total* 1.3 mg/dL (0.1-1.5); Calcium* 8.5 mg/dL (8.4-10.6); Carbon Dioxide* 27 mmol/L (20-32); Glucose* 152 mg/dL (60-115); Total Protein* 5.6 g/dL (6.0-8.3)
--- NOTE | 2024-12-19 07:18 | PM.GSCN ---
History of Present Illness Consult details Date Seen: 12/19/24 Consult date: 12/19/24 Narrative: The patient is a 59-year-old male with abdominal pain for now 6 days. He states that last Monday he was eating lunch at a buffet restaurant and approximately retirement through he states ?my stomach knotted up. ? Pain became so severe he was seen in the emergency department in [place]. Workup revealed a mildly elevated lactate, normal white blood cell count but a CT scan concerning for bowel obstruction versus enteritis. Because of ongoing pain, he did have a repeat scan 3 days later which showed worsening dilated small bowel loops with increasing mesenteric edema. The distal small bowel appeared decompressed and it was thought perhaps there is a transition point in the left abdomen. An NG tube was placed and the patient underwent a small-bowel follow-through. He did have passage of contrast into the colon. His NG tube was removed and he was given a diet. The patient states that he tolerated the diet, because he felt as though at the hospital they were ?pumping knee full of drugs and not trying to figure out what is going on. ? He went home and was working in his garden and then the pain came back ?with a vengeance. ? He states that the pain is mainly in his right upper quadrant and is 6/10 currently. The pain will wax and wane but is always present. Nothing really seems to make it better or worse. When the pain is severe it does hurt to breathe. He has had nausea and vomiting throughout this time and states that he has had periodic passage of flatus. He states that he has not really had a good bowel movement in 3 weeks. He did have bowel movements after the contrast administration in the small bowel follow-through, but initially when asked states that he has not really had a bowel movement during this time. He states that he vomited most of the contrast up after the administered it. He states that he has had difficulty having a bowel movement since he has been on Ozempic. He thinks that his symptoms may be from his gallbladder as his brother had similar issues. Review of his records from [place] shows that consideration for laparoscopy given his persistent symptoms an abnormal appearing bowel on imaging was being had, as well as possible upper endoscopy given that he had had some possible blood-tinged emesis. He has not had any prior abdominal surgeries. PFSH PFSH Medical History (Updated 12/19/24 @ 11:14 by Micheal Lim MD) Hyperlipidemia ?E78.5 - Hyperlipidemia, unspecified (ICD-10) History of substance use disorder ?Z87.898 - Personal history of other specified conditions (ICD-10) GUADALUPE (obstructive sleep apnea) ?G47.33 - Obstructive sleep apnea (adult) (pediatric) (ICD-10) GERD (gastroesophageal reflux disease) ?K21.9 - Gastro-esophageal reflux disease without esophagitis (ICD-10) HTN (hypertension) ?I10 - Essential (primary) hypertension (ICD-10) Diabetes type 2 ?E11.9 - Type 2 diabetes mellitus without complications (ICD-10) Social History What is your current living situation?: I presently have a place to live Problems where you live: no known problems In the past 12 months, utilities in danger of being shut off: no In past 12 months, lack of transportation kept you from medical appts, meetings, work, or getting things needed for daily living: no In the past 12 mos, have been you worried that your food would run out before you had money to buy more?: never true In the past 12 mos, the food you bought just didn't last and you didn't have money to buy more?: never true Smoking Status: Never smoker How often do you have a drink containing alcohol: never AUDIT-C Alcohol total score: 0 Non-prescribed substance use: denies use How often does anyone, including family, friends and others, physically hurt you: never How often does anyone, including family, friends and others, insult or talk down to you: never How often does anyone, including family, friends and others, threaten you with harm: never How often does anyone, including family, friends and others, scream or curse at you: never Meds Home Medications and Allergies Home Medications ?Medication ?Instructions ?Recorded ?Confirmed ?Type atorvastatin 40 mg tablet 40 mg PO QPM 12/18/24 12/18/24 History cholecalciferol (vitamin D3) 125 125 mcg PO DAILY 12/18/24 12/18/24 History mcg (5,000 unit) capsule lisinopril 10 mg tablet 10 mg PO DAILY 12/18/24 12/18/24 History metformin 1,000 mg tablet 1,000 mg PO BID 12/18/24 12/18/24 History nitroglycerin 0.4 mg sublingual 0.4 mg sublingual Q5M PRN 12/18/24 12/19/24 History tablet omeprazole 40 mg capsule,delayed 40 mg PO DAILY 12/18/24 12/18/24 History release propranolol 20 mg tablet 20 mg PO 3XD 12/18/24 12/18/24 History semaglutide 2 mg/dose (8 mg/3 mL) 2 mg subcut Q7D 12/18/24 12/19/24 History subcutaneous pen injector (Ozempic) Allergies Allergy/AdvReac Type Severity Reaction Status Date / Time acetaminophen (From Percocet) Allergy Intermediate Hives Unverified 12/18/24 21:14 oxycodone (From Percocet) Allergy Intermediate Hives Unverified 12/18/24 21:14 Exam Narrative: Exam Narrative: General appearance: Alert, cooperative, and in no distress Eyes: PERRLA, eye lids clear, and sclera white HENT Head: Normocephalic Ears: External ears normal Pulmonary: Breathing nonlabored on room air Cardiovascular Heart: Regular rate Extremities: warm and well perfused Gastrointestinal Abdominal: Mildly distended but soft. He is fairly tender in the right upper abdomen. He has no scars. No guarding or peritoneal signs. Musculoskeletal: Extremities: Upper: Both upper extremities have normal joint range of motion and intact strength. Lower: Both lower extremities have normal joint range of motion and intact strength. Skin: Normal skin color, texture, and turgor. Neurologic: No focal deficits Psychiatric: Alert, oriented, cooperative, normal affect. Const: Vital Signs, click to edit/add: Vital Signs - 24 hr 12/18/24 15:37 12/18/24 15:38 12/18/24 15:41 Temperature 98 F Pulse Rate 92 78 Pulse Rate [Right Pulse Oximeter] 78 Respiratory Rate 18 Blood Pressure 159/106 H 160/109 H Blood Pressure [Le ft Arm] Blood Pressure [Ri ght Upper Arm] 160/109 H Pulse Oximetry 96 95 95 Oxygen Delivery Me thod Room Air 12/18/24 16:01 12/18/24 16:01 12/18/24 16:21 Temperature Pulse Rate 89 91 Pulse Rate [Right Pulse Oximeter] Respiratory Rate Blood Pressure 136/75 133/71 Blood Pressure [Le ft Arm] Blood Pressure [Ri ght Upper Arm] Pulse Oximetry 94 96 94 Oxygen Delivery Me thod 12/18/24 17:02 12/18/24 17:22 12/18/24 17:39 Temperature Pulse Rate 90 95 88 Pulse Rate [Right Pulse Oximeter] Respiratory Rate 17 19 18 Blood Pressure 114/71 117/73 131/87 Blood Pressure [Le ft Arm] Blood Pressure [Ri ght Upper Arm] Pulse Oximetry 94 95 93 Oxygen Delivery Me thod 12/18/24 19:58 12/18/24 19:58 12/18/24 20:12 Temperature 97.6 F 97.6 F Pulse Rate Pulse Rate [Right Pulse Oximeter] 78 78 Respiratory Rate 18 18 18 Blood Pressure Blood Pressure [Le ft Arm] 135/97 H Blood Pressure [Ri ght Upper Arm] Pulse Oximetry 98 98 98 Oxygen Delivery Me thod Room Air Room Air Room Air 12/18/24 20:12 12/18/24 23:00 12/18/24 23:00 Temperature Pulse Rate 96 Pulse Rate [Right Pulse Oximeter] 78 Respiratory Rate 18 Blood Pressure Blood Pressure [Le ft Arm] Blood Pressure [Ri ght Upper Arm] Pulse Oximetry 96 Oxygen Delivery Me thod 12/19/24 02:41 12/19/24 03:50 Temperature 98.3 F Pulse Rate 114 H Pulse Rate [Right Pulse Oximeter] 99 Respiratory Rate 18 Blood Pressure Blood Pressure [Le ft Arm] 114/71 Blood Pressure [Ri ght Upper Arm] Pulse Oximetry 90 Oxygen Delivery Me thod Room Air Results Labs Labs: Labs reviewed from [facility]. Patient did have an elevated lactate on admission which improved with fluid resuscitation. White blood cell count was within normal limits on admission and increased to 12 but then decreased to normal on the day of discharge. On admission here, the patient is noted to have a lactate of 2.1 which improved to normal with fluid administration. White blood cell count on admission here was for and is now 3.9. He does not have a left shift, rather has increased monocytes Hemoglobin was 17.5 on admission and is now 14.5. Basic metabolic panel on admission was significant for CO2 of 34 and BUN elevated at 49. Creatinine was normal. To day potassium is 3.3, CO2 is now 27 and BUN is 40. The remainder of electrolytes are normal. C reactive protein was 3.4 on admission and today is 5.3. LFTs are normal except for a mildly elevated AST at 39. Imaging Abdominal ultrasound report/results: report reviewed and image reviewed Additional studies: US abdomen: INDICATION: Right upper quadrant pain. TECHNIQUE: Ultrasound abdomen limited. Sonographic images of the right upper quadrant were obtained using shore-scale and color Doppler images. COMPARISON: Same day CT abdomen and pelvis with contrast. FINDINGS/IMPRESSION: Nondiagnostic, incomplete examination secondary to excessive bowel gas obscuring view. The gallbladder is not visualized. Dictated by Billie Montoya MD @ 12/18/2024 6:50:[address] abdomen/Pelvis 12/18/24: TECHNIQUE: CT of the abdomen and pelvis was obtained with 95 mL of Isovue 370 intravenous contrast. COMPARISON: 12/15/2024. FINDINGS: Lower thorax: Please see separately dictated same day report. Liver and biliary tree: Normal. Gallbladder: Normal. Spleen: Normal. Pancreas: Normal. Adrenal glands: Normal. Kidneys and ureters: Right renal cyst. Additional subcentimeter hypoattenuating lesions are too small to characterize and are favored to represent cysts. No hydronephrosis or obstructing renal calculi. Gastrointestinal tract: Mild gaseous prominence of the colon measuring up to 6.0 centimeter (2/35). No evidence of acute appendicitis. Moderately dilated small bowel loops measuring up to 4.9 centimeter (2/71) with associated air-fluid levels. Transition point is seen likely in the right upper quadrant of the abdomen. Peritoneal cavity: Small amount of intra-abdominal ascites. Moderate mesenteric edema. Small amount of interloop free fluid. Bladder: Normal. Pelvic organs: Normal. Vasculature: Moderate calcification. Lymph nodes: Normal. Abdominal wall: Normal. Musculoskeletal: [id number] degenerative changes of the bilateral hips and of the visualized spine. IMPRESSION: 1. Moderately dilated small bowel loops measuring up to 4.9 centimeter with air-fluid levels again seen and likely transition point in the right upper quadrant of the abdomen. Moderate mesenteric edema with small amount of interloop free fluid may represent developing ischemia in the setting of small-bowel obstruction. 2. Small amount of intra-abdominal ascites. Dictated by Tomasz Ward MD @ 12/18/2024 5:37:[address] abdomen pelvis with IV contrast done at [facility], 12/13/2024, images reviewed myself and with the radiologist: Impression: Mildly distended stomach with debris inside. Consider correlation with recent oral intake and symptoms of delayed gastric emptying. Nonspecific mildly prominent small bowel measuring up to 2.7 cm in the left abdomen with mild associated mesenteric edema. Findings may represent infectious or inflammatory enteritis or developing small bowel obstruction given possible focal area of narrowing in this left lower quadrant of the abdomen. Trace fluid within abdomen and pelvis. CT abdomen pelvis without IV contrast done at [facility], 12/15/24, images reviewed myself and with the radiologist. Impression: No acute pulmonary findings. Worsening moderate dilated fluid-filled small bowel loops diffusely increasing mesenteric edema in. Distal small bowel appears more decompressed. A small focal area of small bowel narrowing in the left abdomen again seen. Findings could represent developing small-bowel obstruction, worsening enteritis. Consider surgical evaluation. Progress Note:A&P Assessment and plan (1) History of CVA (cerebrovascular accident): Status: Acute (2) SBO (small bowel obstruction): Status: Acute (3) Abdominal pain: Status: Acute (4) Diabetes type 2: Status: Acute Plan The patient is a 59-year-old male with abdominal pain of unclear etiology, possibly a bowel obstruction based on the CT findings of dilated small bowel with transition point and significant mesenteric edema and intra-abdominal fluid. The prompt passage of contrast during the small bowel follow-through would argue against this, however he has not been able to tolerate p.o. intake and has had very little antegrade bowel function. I reviewed his 3 CT scans with Radiology, both from here and the outside hospital. The do appear to be progressively worsening despite NG decompression and passage of stools. Today the scan looks as though he may have a mesenteric swirl. This could represent an internal hernia or volvulus that is causing partial obstruction which is why the contrast may have passed through so quickly. I do not think his symptoms are from his gallbladder as the patient is concerned about, though the timing and the location the pain fit. I think it would be very unlikely that cholecystitis would cause such a remarkable reaction of the mesentery and small bowel without showing inflammation around the gallbladder. Certainly Infectious enteritis is also on the differential, however given that he has failed to resolve and actually seems to have worsened over 5 days I think it is reasonable to proceed with exploratory laparoscopy, possible laparotomy to rule out obstruction. I discussed the procedure with Douglas and his significant other. He is agreeable to proceed. We will plan on surgery this afternoon.
--- NOTE | 2024-12-19 07:42 | PC.NURSE ---
End of shift: Pt alert, oriented and vitally stable. Tele reads NSR, though one episode of sinus tachy. SBA. NPO. Pt rated pain as high as 6/10 throughout night, prn medication given and pt stated some improvement. Around 0600 this morning pt called and stated pain rated 9-10/10, unresolved with medications. Abdomen tender and distended upon palpation. Reported to charge nurse, prn NG tube utilized though pt had some anxiety around the process. Staff awaited MD arrival and explained situation, prn medications provided. Pt now in bed, appears to be resting, call light within reach.
--- NOTE | 2024-12-19 07:52 | CRLHL7_ITS ---
For Patients: As a result of the Century Cures Act, medical imaging exams and procedure reports are released immediately into your electronic medical record. You may view this report before your referring provider. If you have questions, please contact your health care provider. Indication: Nasogastric tube placement Technique: Single-view portable study of the abdomen dated December 19, 2024 Comparison: A plain film dated December 18, 2024 Findings: As described below Impression: 1. Ongoing significant abnormal dilation of small bowel. 2. Nasogastric tube located ending in the stomach. 3. Degenerative changes are visible osseous structures. No visible pathologic calcifications. Dictated by Tushar Canchola MD @ 12/19/2024 8:17:57 AM (Electronically Signed)
[2024-12-19 08:06] LABS: Immature Granulocytes Abs Auto 0.00 K/uL (0.00-0.30); Lymphocytes Absolute Auto 0.70 K/uL (0.90-2.90); Slide Review Reflex Yes
[2024-12-19 08:08] LABS: Slide Review Acceptable Review (Acceptable)
[2024-12-19 08:20] LABS: HCO3 VBG 26 mmol/L (21-28); PCO2 VBG 38 mmHG (40-50); PO2 VBG 62.7 mmHG (25-47); pH VBG 7.446 (7.32-7.43)
[2024-12-19] MEDS: LACTATED RINGERS 500 ML 500 ML IV (09:53)
[2024-12-19] MEDS: POTASSIUM CHLORIDE 10 MEQ/100 ML PIGGYBACK 100 MEQ IVPB ×2 (09:57→11:01)
[2024-12-19] MEDS: METOPROLOL TARTRATE 1 MG/ML inj 2.5 MG IVP ×2 (10:00→21:49)
--- NOTE | 2024-12-19 11:00 | P.IMPN_ITS ---
Assessment and Plan Assessment and plan (1) SBO (small bowel obstruction): Problem comment: -d/w Dr. Meraz. She has reviewed CTs from [facility] and ours. No previous history of abdominal surgery. On Ozempic. Status: Acute (2) Abdominal pain: Problem comment: Pain is likely from small-bowel obstruction, improved with NG tube. Patient is concerned about biliary disease. Status: Acute (3) Diabetes type 2: Problem comment: well managed with metformin and GLP1 (holding both) accuchecks as he is NPO, will had D5 if needed or PPN Status: Acute (4) HTN (hypertension): Problem comment: lisinopril on hold; monitor pressures. IV metoprolol to replace propranolol Status: Acute (5) GUADALUPE (obstructive sleep apnea): Problem comment: mask doesn't fit properly; needs new study Status: Acute (6) GERD (gastroesophageal reflux disease): Problem comment: IV PPI Status: Acute (7) Hypokalemia: Problem comment: Replace and follow Status: Acute Plan 59-year-old male admitted with persisting and fluctuating small-bowel obstruction. Cause for this uncertain. Continue N/C suctioning and IV fluids and pain medication. Surgical consultation. Total Time Spent Total Time Spent: Total time spent today is 60 minutes in reviewing outside records, coordination of care, discussion with patient and other providers ongoing management of small bowel obstruction Subjective Date Seen: 12/19/24 Interval history: Douglas Rodriguez is a 59 y/o WM with a hx of HLP, GUADALUPE, DM, GERD, and remote history of alcohol abuse who presents within hours of discharge from a local hospital. He apparently ate at a buffet on 12/13 and presented same day with abdominal pain/bloating/vomiting. He was admitted at a local hospital and was conservatively treated for SBO. He underwent serial exams, CT imaging, labs. His presentation and course were atypical as he passed contrast easily into his colon during but would have bouts of nausea/pain/vomiting requiring an NG tube. He had his NG removed 12/16 and attempted clears on 12/17 and tolerated a regular breakfast of cereal and banana this morning with a small diarrheal stool. He discharged home. Within 3-4 hours he was having intractable pain and vomited once. Pertinent facts He apparently had a syncopal or presyncopal episode in our waiting room; in a wheelchair - he leaned over with pain and sorta spilled out onto the carpet. no head injury. no LOC. No abdominal surgeries. Last colonoscopy was 09/28 with 10 year f/u plan 130lb weight loss in the last 15 months; intentional and secondary to Ozempic. His last dose of Ozempic was December 08. Bowel movements have been irregular in this time from constipated for days and then liquid stools Overnight patient had some difficulty with pain control. This morning NG tube was placed. Immediately 200 mL of gastric fluid removed. He reports feeling better with this. Exam Narrative: Exam Narrative: He is alert and appears in no distress. NG tube is draining a dark greenish brown fluid. Oropharynx: Edentulous. Dry mucous membranes. Neck is supple without mass or adenopathy. Respirations are clear to auscultation. Cardiovascular: S1, S2, regular rate and rhythm. Abdomen: Bowel sounds diminished. He has diffuse abdominal tenderness more prominent in the right upper quadrant. External genitalia normal. Extremities without edema. Good peripheral pulses. Good capillary refill. Const: Vital Signs, click to edit/add: Vital Signs - 24 hr 12/18/24 15:37 12/18/24 15:38 12/18/24 15:41 Temperature 98 F Pulse Rate 92 78 Pulse Rate [Right Pulse Oximeter] 78 Respiratory Rate 18 Blood Pressure 159/106 H 160/109 H Blood Pressure [Le ft Arm] Blood Pressure [Ri ght Upper Arm] 160/109 H Pulse Oximetry 96 95 95 Oxygen Delivery Me thod Room Air 12/18/24 16:01 12/18/24 16:01 12/18/24 16:21 Temperature Pulse Rate 89 91 Pulse Rate [Right Pulse Oximeter] Respiratory Rate Blood Pressure 136/75 133/71 Blood Pressure [Le ft Arm] Blood Pressure [Ri ght Upper Arm] Pulse Oximetry 94 96 94 Oxygen Delivery Me thod 12/18/24 17:02 12/18/24 17:22 12/18/24 17:39 Temperature Pulse Rate 90 95 88 Pulse Rate [Right Pulse Oximeter] Respiratory Rate 17 19 18 Blood Pressure 114/71 117/73 131/87 Blood Pressure [Le ft Arm] Blood Pressure [Ri ght Upper Arm] Pulse Oximetry 94 95 93 Oxygen Delivery Me thod 12/18/24 19:58 12/18/24 19:58 12/18/24 20:12 Temperature 97.6 F 97.6 F Pulse Rate Pulse Rate [Right Pulse Oximeter] 78 78 Respiratory Rate 18 18 18 Blood Pressure Blood Pressure [Le ft Arm] 135/97 H Blood Pressure [Ri ght Upper Arm] Pulse Oximetry 98 98 98 Oxygen Delivery Me thod Room Air Room Air Room Air 12/18/24 20:12 12/18/24 23:00 12/18/24 23:00 Temperature Pulse Rate 96 Pulse Rate [Right Pulse Oximeter] 78 Respiratory Rate 18 Blood Pressure Blood Pressure [Le ft Arm] Blood Pressure [Ri ght Upper Arm] Pulse Oximetry 96 Oxygen Delivery Me thod 12/19/24 02:41 12/19/24 03:50 12/19/24 08:35 Temperature 98.3 F 98.4 F Pulse Rate 114 H Pulse Rate [Right Pulse Oximeter] 99 93 Respiratory Rate 18 18 Blood Pressure Blood Pressure [Le ft Arm] 114/71 135/97 H Blood Pressure [Ri ght Upper Arm] Pulse Oximetry 90 93 Oxygen Delivery Me thod Room Air Room Air 12/19/24 09:19 12/19/24 10:00 Temperature Pulse Rate 97 Pulse Rate [Right Pulse Oximeter] 99 Respiratory Rate Blood Pressure Blood Pressure [Le ft Arm] Blood Pressure [Ri ght Upper Arm] Pulse Oximetry Oxygen Delivery Me thod Documenting provider has reviewed patient's vital signs: yes Labs Labs: Laboratory Results - last 24 hr 12/18/24 12/18/24 12/18/24 15:40 20:13 20:43 WBC 3.90 L Corrected WBC RBC 5.61 Hgb 17.5 Hct 51.3 MCV 91 MCH 31 MCHC 34 RDW Coeff of Christina 13.0 Plt Count 368 Neut % (Auto) 63.0 Lymph % (Auto) 21.0 [place] % (Auto) 14.1 H Eos % (Auto) 1.3 Baso % (Auto) 0.3 Neut # (Auto) 2.50 Lymph # (Auto) 0.80 L [place] # (Auto) 0.50 Eos # (Auto) 0.10 Baso # (Auto) 0.00 Abs Immat Gran (auto) 0.00 Imm/Tot Granulo (auto) 0.3 Diff Slide Review D-Dimer Quant (PE/DVT) 3.64 H VBG pH 7.445 H 7.446 H VBG pCO2 48 41 VBG pO2 < 30.1 70.3 H VBG HCO3 33 H 28 Sodium 139 Potassium 4.6 Chloride 98 Carbon Dioxide 34 H Anion Gap 7 BUN 49 H Creatinine 0.9 Estimated GFR 98 Glucose 209 H Hemoglobin A1c 6.1 H Lactate 2.1 H 0.9 Calcium 10.0 Magnesium Total Bilirubin 1.4 Direct Bilirubin 0.4 AST 39 H ALT 33 Alkaline Phosphatase 59 Troponin I < 0.01 C-Reactive Protein 3.4 H NT-Pro-B Natriuret Pep 123 Total Protein 7.1 Albumin 4.4 Lipase 44 Procalcitonin 0.09 Lab Acknowledgement Test Added 12/19/24 06:40 WBC 4.08 L Corrected WBC 3.96 L RBC 4.66 Hgb 14.5 Hct 42.7 MCV 92 MCH 31 MCHC 34 RDW Coeff of Christina 12.8 Plt Count 251 Neut % (Auto) 66.9 Lymph % (Auto) 17.6 L [place] % (Auto) 12.0 H Eos % (Auto) 2.5 Baso % (Auto) 0.5 Neut # (Auto) 2.60 Lymph # (Auto) 0.70 L [place] # (Auto) 0.50 Eos # (Auto) 0.10 Baso # (Auto) 0.00 Abs Immat Gran (auto) 0.00 Imm/Tot Granulo (auto) 0.5 Diff Slide Review Acceptable Review D-Dimer Quant (PE/DVT) VBG pH 7.446 H VBG pCO2 38 L VBG pO2 62.7 H VBG HCO3 26 Sodium 136 Potassium 3.3 L Chloride 104 Carbon Dioxide 27 Anion Gap 5 L BUN 40 H Creatinine 0.7 Estimated GFR 106 Glucose 152 H Hemoglobin A1c Lactate 1.1 Calcium 8.5 Magnesium 1.7 Total Bilirubin 1.3 Direct Bilirubin AST 27 ALT 28 Alkaline Phosphatase 50 Troponin I C-Reactive Protein 5.3 H NT-Pro-B Natriuret Pep Total Protein 5.6 L Albumin 3.2 L Lipase 29 Procalcitonin Lab Acknowledgement
--- NOTE | 2024-12-19 12:47 | W.PC.NUTR.HO ---
Hospital Nutrition Assessment Patient Data Patient Gender: Male Patient Age: 59 Height: 5 ft 8 in (172.72 cm) Weight: 195 lb 4.8 oz (88.59 kg) Body Mass Index: 29.7 Weight Calculations [place] Body Weight (lbs): 154.00 [place] Body Weight (kg): 69.85 Percent of [place] Body Weight: 127 Adjusted Body Weight (lbs): 164.33 Adjusted Body Weight (kg): 74.54 Basal Energy Expenditure (BEE): 1748.96 Basal Energy Expenditure (BEE) Adjusted Weight: 1555.82 Activity/Stress Factors Injury Factor/Activity Factor Value: 1.2 Total Energy Requirements Kcal requirements (current wt): 2098.752 Kcal requirements (adj wt): 1866.984 Protein Need (current wt): 1.0 Total Protein (current wt): 88.587 Protein Need (adj wt): 1.0 Total Protein (adj wt): 74.540 Fluid Need (current wt): 30 Total Fluid (current wt): 2657.598 Fluid Need (adj wt): 30 Total Fluid (adj wt): 2236.20 Nutrition Assessment Diet Order: NPO Allergies: NKFA Appetite Prior to Admission: Poor Appetite and Intake: NPO diet order - Day 6 of no intakes. Hx Appetite Changes: Yes Hx Weight Loss: Yes (130 lbs weight loss within 1 year per pt report) Hx Weight Gain: No Nausea: No Vomiting: Yes Diarrhea: No Hx Constipation: No Chewing Difficulty: No Swallowing Difficulty: No Pressure Ulcer: No Diagnosis/Symptom or Procedure: Small bowel obstruction Clinical History: Medical history includes but not limited to HLP, GUADALUPE, DM, GERD, and distance hx of substance abuse. He was recently hospitalized at [facility] in [place] for small bowel obstruction; He ate at a buffet on 12/13 and presented same day with abdominal pain, bloating vomiting. He was admitted at a [facility] hospital and was conservatively treated for SBO. NG tube was removed 12/16 and advanced clears on 12/17 with tolerance. He ate a regular breakfast of cereal and banana the morning on 12/18/24 with a small diarrheal stool. He was then discharged home 12/18/24. Within 3-4 hours of discharge, he was having intractable pain and vomited once and presented to our ER. Of note, patient is taking semaglutide (Ozempic) for about 1 year. He reports he has lost about 130 lbs within 1 year since starting medication. Current Living Situation: Lives with significant other. Medications Medications: reviewed. Lab Results Lab Results: reviewed. Assessment/Plan PES Statement: 1. Inadequate oral intakes related to in setting of small bowel obstruction as evidenced by NPO status x6 days with only one solid meal within that timeframe. 2. Intentional significant weight loss related to semaglutide use with decreased appetite as evidenced by pt report of 130 lbs loss within 1 year (~40%). Nutritional Assessment Summary: RDN with nutrition screen related to significant intentional weight loss and verbal MD order for PPN recommendations in anticipation of starting PPN within the next few days. RDN visited with patient whom reports his appetite decreased greatly after starting Ozempic about 1 year ago. He reports he was able to eat about a Happy meal size meal which sometimes would last him all day. RDN discussed patient with Hospitalist and expressed concern for patient being at risk for malnutrition. If patient is malnourished, it is recommended to initiate PPN/TPN within 3-5 days of no intakes. Patient is currently on Day 6 of no oral intakes. RDN recommends initiation of PPN if patient's as soon as feasible and appropriate. Hospitalist agreed to write PPN recommendations in case PPN is started over the weekend. Patient is expected to have ex. lap. done today. ---PPN RECOMMENDATIONS--- Using patient's current body weight for calculations. RDN recommends starting PPN (5% dextrose, 4.25% amino acids) at 25 mL/hr x 8 hrs and advancing per protocol (25 mL/hr every 8 hours) until goal is met of 100 mL/hr. Goal PPN rate of 100 mL/hr x 24 hours provides a total of 816 kcals (9.2 kcals/kg), 102 grams protein (1.15 grams/kg), and 2400 mL fluid (27 mL/kg). 408 kcals from dextrose (1.3 grams/kg). With this regimen, patient will meet about 50% of total calorie needs, 100% of protein needs, and about 90% of fluid needs. Goals: NPO status current due to surgery today. Initiation of PPN within the next few days. Advancement of diet as soon as feasible and tolerated per MD order. Plan/Recommendation: -NPO status current due to surgery today. -RDN recommends to initiate PPN as soon as feasible if bowel function does not return. -PPN Recommendations: Initiate PPN (5% dextrose, 4.25% amino acids) at 25 mL/hr x 8 hrs and advancing per protocol (25 mL/hr every 8 hours per tolerance and labs) until goal is met of 100 mL/hr. -RDN will continue to monitor labs, weight, and tolerance of PPN. RDN may adjust PPN regimen as needed to better met patient's needs at a later date once PPN is started. Malnutrition Assessment Current Energy Intake: Less Than 75% Estimated Timeframe Of Energy Intake: Greater Than Or Equal To 5 Days and Other-See Comment (Loss of appetite and decreased intakes for about 1 year with the start of Ozempic) Weight Changes: >20% In 12 Months and Unable To Determine (Unable to determine weight loss from 12/13/2024 to today.) Recommended Malnutrition Diagnosis: Severe Protein-Calorie Malnutrition, Moderate Protein-Calorie Malnutrition and Further Physical Evaluation Required By MD To Determine In The Context: Acute Injury/Illness and Chronic Illness Based On: Weight Loss and Inadequate Energy Intakes
[2024-12-19] MEDS: LACTATED RINGERS 1000 ML 1,000 ML 100 ML IV ×3 (13:50→20:49)
--- NOTE | 2024-12-19 14:11 | PM.GSPRC ---
Operative Note Date of procedure: 12/19/24 Pre-op diagnosis: De Jasmyn small bowel obstruction Post-op diagnosis: Small bowel volvulus Type of Procedure: 1. Exploratory laparoscopy 2. Exploratory laparotomy Indications: The patient is a 59-year-old male who presents to the hospital with abdominal pain which has been going on for several days. He was admitted at outside hospital with a presumed bowel obstruction. He underwent 2 [address] scans and also a Gastrografin small-bowel follow-through study which did show passage of contrast into his colon, however he did not have resolution of pain and has had inability to take p.o.. He states that he did not feel as though they were appropriately diagnose thing his condition at the outside hospital so he discharge home. His pain worsened acutely so he presented to our emergency department. He was found to have worsening dilatation of the small bowel and a possible transition point in the right upper quadrant. An NG tube was placed. After reviewing his studies from the outside hospital and reviewing images with the radiologist and after having a discussion with the patient, I recommended exploration given the worsening CT findings and his failure to progress. We discussed risks of the procedure including bleeding, infection, need for resection of bowel, anastomotic leak and the possibility of a nontherapeutic procedure. He was agreeable to proceed and signed informed consent. Procedure Description: After discussing the risks and benefits of the procedure, the patient signed informed consent.? The operative site was marked and the patient was brought to the operating room and placed on the operating table in supine position.? Care was taken to pad the patient's pressure points.?? The patient was then intubated by anesthesia.?? The operative site was then prepped and draped in the usual sterile fashion.? A time-out was then performed. Interested the abdomen was gained via Singh technique below the umbilicus. The abdomen was entered and insufflated. It was briefly surveyed. The small bowel was noted to be dilated and inflamed. It did not appear ischemic. There was hemorrhagic ascites located throughout the abdomen. I placed 2 additional 5 mm ports, 1 in the left upper quadrant and 1 in the left lower quadrant under direct vision. The omentum was noted to be in the upper abdomen. There were no adhesions between the omentum and the abdominal wall and no obvious adhesions between the omentum in the pelvis causing an internal hernia. I began by attempting to identify the terminal ileum. Patient was placed in Trendelenburg position with the right side up. I very gently moved the dilated loops of small bowel away from the right pelvic wall, however I was on able to identify the cecum because of the amount of bowel dilatation. I elected to proceed with an open procedure. The ports were removed and a midline incision was made about the umbilicus. Dissection was taken down through the subcutaneous fat and the fascia was incised. The peritoneal cavity was entered. I began by extracorporealizing the small bowel. As it was pulled from the incision it quickly became dusky. I was able to palpate the mesenteric root I could feel that there was a twist or possibly hernia here. I was unable to see this as the bowel was tethered in the abdomen posteriorly. I then extended the incision and placed a wound protector into the wound. Once the incision was enlarged, I was then able to deliver the small bowel from the abdomen. A moderate amount of hemorrhagic ascites was suctioned. When the small bowel was out of the abdomen, it was dusky. There was a hemorrhagic and ischemic appearing segment with hemorrhagic mesentery which was located in the left upper abdomen. I was then able to quickly untwist the mesentery and the bowel immediately pinked up. The bowel was placed back in the abdomen. I now began exploring the small bowel to search for the cause. I began by identifying the ligament of Treitz. The bowel was then run distally to the ileocecal valve. There were no masses palpable in the bowel. The loop of bowel with the hemorrhagic mesentery was noted to be in the distal 30 cm of the ileum. This now appeared pink and well perfused though there were hemorrhagic streaks on the anti mesenteric border of this segment of bowel. I then thoroughly examined the mesentery to ensure there were no retroperitoneal mesenteric defects which could have caused an internal hernia. There did not appear to be any adhesions or masses acting as a lead point for volvulus. It should be noted that the patient did have a fairly elongated small bowel mesentery. The ligament of Treitz was located in the usual position with the proximal jejunum in the left side of the abdomen. The colon was positioned appropriately with the cecum on the right. The small bowel was run a 2nd time from the terminal ileum to the ileocecal valve. There were no masses palpable within the small bowel lumen. No creeping fat or inflammation indicating inflammatory bowel disease was noted. The bowel was then placed back into the abdomen, orienting the mesentery in the anatomic position, relatively from the left upper to the right lower abdomen. The stomach was palpated and the NG tube was noted to be in good position. The omentum which had been pushed cephalad by the small bowel dilatation, was pulled down over the small bowel. The patient was then woken and transported to the recovery area in stable condition. ? The patient tolerated the procedure well. Findings: Mesenteric volvulus without mass or adhesive lead point Anesthesia: GETA Surgeon: Jodie Meraz MD Estimated blood loss (mL): 5 Condition: stable Disposition: PACU
[2024-12-19] MEDS: PIPERACILLIN/TAZOBACTAM 3.375 GM INJ IVPB (14:18)
--- NOTE | 2024-12-19 14:45 | W.PM.NB ---
Nerve Block Nerve Block Time Seen by Provider: 14:10 Date Seen: 12/19/24 Type of block requested by surgeon for post-operative analgesia: TAP Side: bilateral Time out performed: Yes Verification of patient name: Yes Verification of date of : Yes Site marking: not applicable Name of person performing procedure: Alysa Continuous monitoring Was continuous monitoring of O2 sat, B/P, dethistler operator, recorded every 15 minutes?: Yes Procedure Checklist: sterile prep, needles and gloves Ultrasound guided. Images saved: Yes Medications given in 5ml increments after negative aspiration: Marcaine %: 0.25 mL: 30 Needle gauge: 20 and Exparel mL: 10 Patient tolerated procedure well: Yes Block Charges Block Charge (with Pro Fee): TAP Bilateral Use of Ultrasound Machine for Block: Yes- US Guidance/pain block
--- NOTE | 2024-12-19 16:18 | P.ANES_ITS ---
Anesthesia Charges Start Date/Time Anesthesia Start Date: 12/19/24 Anesthesia Start Time: 13:52 Stop Date/Time Anesthesia Stop Date: 12/19/24 Anesthesia Stop Time: 16:07 Coding CPT Codes CPT Codes: ANESTH SURG LOWER ABDOMEN - 42729 ([id number]) P3 - PATIENT W/SEVERE SYS DISEASE, QZ - ICE SCRAPER SVC W/O VULNERABILITY ASSESSMENT ANALYST BY
--- NOTE | 2024-12-19 16:18 | W.ANESCHARGE ---
Anesthesia Charges Start Date/Time Anesthesia Start Date: 12/19/24 Anesthesia Start Time: 13:52 Stop Date/Time Anesthesia Stop Date: 12/19/24 Anesthesia Stop Time: 16:07 Coding CPT Codes CPT Codes: ANESTH SURG LOWER ABDOMEN - 56361 ([id number]) P3 - PATIENT W/SEVERE SYS DISEASE, QZ - PROCUREMENT ACCOUNTANT SVC W/O CALL OR CONTACT CENTRE MANAGER BY
--- NOTE | 2024-12-19 22:58 | PC.NURSE ---
End of Shift Note 259 Patient was very pleasant and cooperative throughout shift. VSS. Afebrile. Moves SBA/ assist of 1 with walker. Surgical dressing dry and intact. NG tube in place - intermittent & low suction. Patient very somnolent but stood up to bathroom and voided well. Patient uses call light appropriately. A&Ox4. Call light within reach.
[2024-12-20] VITALS (11 sets, daily range): BP systolic 105–134; BP diastolic 70–79; PULSE 89–105; RESP 12–18; TEMP 36.2–37; O2SAT 91–93
[2024-12-20] MEDS: METOPROLOL TARTRATE 1 MG/ML inj 2.5 MG IVP ×4 (03:37→21:37)
[2024-12-20] MEDS: LACTATED RINGERS 1000 ML 1,000 ML 100 ML IV (04:54)
[2024-12-20] MEDS: ACETAMINOPHEN INJ 1,000 MG/100 ML VIAL 400 MG IVPB ×3 (06:11→21:37)
[2024-12-20 06:42] LABS: HCO3 VBG 28 mmol/L (21-28); PCO2 VBG 40 mmHG (40-50); PO2 VBG 53.6 mmHG (25-47); pH VBG 7.446 (7.32-7.43)
[2024-12-20 06:47] LABS: Hematocrit* 44.1 % (37.0-53.0); Hemoglobin* 14.7 gm/dL (13.5-17.5); Immature Granulocytes Abs Auto 0.06 K/uL (0.00-0.30); Immature Granulocytes Pct Auto 0.9 %; Mean Corpuscular HGB Conc 33 gm/dL (32-36); Mean Corpuscular Hemoglobin 31 pg (26-34); Mean Corpuscular Volume 92 fL (80-100); RDW Coefficient of Variation % 13.1 % (11.5-15.5); Red Blood Count* 4.78 m/uL (4.30-5.90); White Blood Count* 6.77 K/uL (4.50-11.00)
[2024-12-20 06:49] LABS: Lymphocytes Absolute Auto 0.90 K/uL (0.90-2.90); Slide Review Reflex No
[2024-12-20 07:04] LABS: Albumin* 2.8 g/dL (3.3-5.0); Chloride* 105 mmol/L (96-114); Sodium* 137 mmol/L (135-149)
[2024-12-20 07:05] LABS: Potassium* 3.8 mmol/L (3.6-5.1)
[2024-12-20 07:19] LABS: Alanine Aminotransferase* 26 U/L (4-50); Aspartate Amino Transferase* 26 U/L (12-35); Blood Urea Nitrogen* 34 mg/dL (7-30); Creatinine* 0.7 mg/dL (0.5-1.5); Est. Creatinine Clearance* 109.93; Estimated Glomerular Filt Rate 106 ml/min
[2024-12-20 07:20] LABS: Alkaline Phosphatase* 43 U/L (40-150); Anion Gap 5 mEq/L (7-15); Bilirubin Total* 1.0 mg/dL (0.1-1.5); Calcium* 8.1 mg/dL (8.4-10.6); Carbon Dioxide* 27 mmol/L (20-32); Glucose* 125 mg/dL (60-115); Total Protein* 5.2 g/dL (6.0-8.3)
--- NOTE | 2024-12-20 07:38 | PC.NURSE ---
shift note: Pt is AOx4. Pt HR >100 , reported heartburn after med given, EKG done. Pt NG patent & actively draining. Pt reports >8/10 pain; pain meds given - see EMAR. Education provided on pain meds and side effects by RN. Pt ABD dressing C/D/I. Tolerating sips and chips. Up to BR w/ x2 assist w/ GB & walker.
[2024-12-20] MEDS: SODIUM CHLORIDE 0.9 % (FLUSH) 10 ML SYRINGE 5 ML IVF ×2 (08:40→21:38)
[2024-12-20] MEDS: PANTOPRAZOLE SODIUM 40 MG INJ IVP (09:03)
[2024-12-20] MEDS: phenoL 1.4 % THROAT SPRAY 1 SPRAY MUCOUS MEM ×2 (09:04→18:41)
--- NOTE | 2024-12-20 10:13 | PM.GSPN ---
Subjective Subjective Date Seen: 12/20/24 Interval history: Terry is in good spirits today. His main concern is discomfort in his throat from the NG tube. He is hoping he could have a popsicle. His gastric contents were checked for blood and was guaiac positive. The pain that he had prior to surgery is now gone. He is having incisional pain only. He feels that the Toradol gives him significant reflux symptoms. Exam Narrative: Exam Narrative: General: No acute distress NG in place with bilious output. This does not appear blood-tinged. CV regular rate Respiratory: Breathing nonlabored on room air Abdomen: mild distension. Dressing is clean. Const: Vital Signs, click to edit/add: Vital Signs - 24 hr 12/19/24 11:02 12/19/24 16:05 12/19/24 16:10 Temperature 98.6 F 97.5 F L Pulse Rate 97 98 Pulse Rate [Left P ulse Oximeter] Pulse Rate [Right Pulse Oximeter] 89 Respiratory Rate 18 16 18 Blood Pressure 133/87 140/89 H Blood Pressure [Le ft Arm] 110/80 Blood Pressure [Ri ght Arm] Pulse Oximetry 93 95 96 Oxygen Delivery Me thod Room Air Nasal Cannula Nasal Cannula Oxygen Flow Rate 3 3 Fraction of Inspir ed Oxygen 100 100 12/19/24 16:15 12/19/24 16:20 12/19/24 16:25 Temperature Pulse Rate 95 100 100 Pulse Rate [Left P ulse Oximeter] Pulse Rate [Right Pulse Oximeter] Respiratory Rate 18 18 16 Blood Pressure 135/88 131/93 H 140/80 H Blood Pressure [Le ft Arm] Blood Pressure [Ri ght Arm] Pulse Oximetry 96 95 95 Oxygen Delivery Me thod Nasal Cannula Room Air Room Air Oxygen Flow Rate 3 Fraction of Inspir ed Oxygen 100 12/19/24 16:30 12/19/24 16:35 12/19/24 16:46 Temperature 98.0 F 96.7 F L Pulse Rate 98 100 Pulse Rate [Left P ulse Oximeter] Pulse Rate [Right Pulse Oximeter] 100 Respiratory Rate 16 16 18 Blood Pressure 139/85 141/82 H Blood Pressure [Le ft Arm] 143/93 H Blood Pressure [Ri ght Arm] Pulse Oximetry 94 94 90 Oxygen Delivery Me thod Room Air Room Air Room Air Oxygen Flow Rate Fraction of Inspir ed Oxygen 12/19/24 17:01 12/19/24 17:16 12/19/24 17:31 Temperature Pulse Rate Pulse Rate [Left P ulse Oximeter] Pulse Rate [Right Pulse Oximeter] 101 H 102 H 103 H Respiratory Rate 18 20 20 Blood Pressure Blood Pressure [Le ft Arm] 145/83 H 127/82 140/83 H Blood Pressure [Ri ght Arm] Pulse Oximetry 90 89 90 Oxygen Delivery Me thod Room Air Room Air Room Air Oxygen Flow Rate Fraction of Inspir ed Oxygen 12/19/24 17:45 12/19/24 18:01 12/19/24 18:22 Temperature Pulse Rate 104 H Pulse Rate [Left P ulse Oximeter] Pulse Rate [Right Pulse Oximeter] 103 H 103 H Respiratory Rate 18 20 Blood Pressure Blood Pressure [Le ft Arm] 140/83 H 134/81 Blood Pressure [Ri ght Arm] Pulse Oximetry 90 89 Oxygen Delivery Me thod Room Air Room Air Oxygen Flow Rate Fraction of Inspir ed Oxygen 12/19/24 18:30 12/19/24 19:00 12/19/24 20:00 Temperature 96.8 F L 96.4 F L 97.0 F L Pulse Rate Pulse Rate [Left P ulse Oximeter] Pulse Rate [Right Pulse Oximeter] 104 H 104 H 105 H Respiratory Rate 20 20 20 Blood Pressure Blood Pressure [Le ft Arm] 131/86 132/81 133/82 Blood Pressure [Ri ght Arm] Pulse Oximetry 89 90 90 Oxygen Delivery Me thod Room Air Room Air Room Air Oxygen Flow Rate Fraction of Inspir ed Oxygen 12/19/24 20:12 12/19/24 21:00 12/19/24 22:00 Temperature Pulse Rate Pulse Rate [Left P ulse Oximeter] Pulse Rate [Right Pulse Oximeter] 105 H 99 Respiratory Rate 20 20 Blood Pressure Blood Pressure [Le ft Arm] 126/77 123/77 Blood Pressure [Ri ght Arm] Pulse Oximetry 90 91 91 Oxygen Delivery Me thod Room Air Room Air Oxygen Flow Rate Fraction of Inspir ed Oxygen 12/19/24 23:00 12/19/24 23:00 12/19/24 23:00 Temperature Pulse Rate 103 H Pulse Rate [Left P ulse Oximeter] 103 H Pulse Rate [Right Pulse Oximeter] Respiratory Rate 18 18 Blood Pressure Blood Pressure [Le ft Arm] Blood Pressure [Ri ght Arm] Pulse Oximetry 92 Oxygen Delivery Me thod Room Air Oxygen Flow Rate Fraction of Inspir ed Oxygen 12/19/24 23:48 12/20/24 03:00 12/20/24 03:38 Temperature 96.9 F L 97.6 F Pulse Rate Pulse Rate [Left P ulse Oximeter] 100 99 Pulse Rate [Right Pulse Oximeter] 105 H Respiratory Rate 18 12 14 Blood Pressure Blood Pressure [Le ft Arm] 106/78 105/71 Blood Pressure [Ri ght Arm] 108/77 Pulse Oximetry 92 92 91 Oxygen Delivery Me thod Room Air Room Air Oxygen Flow Rate Fraction of Inspir ed Oxygen 12/20/24 08:22 Temperature 98.6 F Pulse Rate Pulse Rate [Left P ulse Oximeter] 101 H Pulse Rate [Right Pulse Oximeter] Respiratory Rate 16 Blood Pressure Blood Pressure [Le ft Arm] Blood Pressure [Ri ght Arm] 122/78 Pulse Oximetry 91 Oxygen Delivery Me thod Room Air Oxygen Flow Rate Fraction of Inspir ed Oxygen Labs/Imaging Labs Labs: White blood cell count remains normal at 6. Hemoglobin stable at 14.7 continues with slightly elevated BUN creatinine ratio. CRP is elevated at 21 from 5.3 yesterday. Progress Note:A&P Assessment and plan (1) History of CVA (cerebrovascular accident): Status: Acute (2) Status post laparotomy: Status: Acute Plan The patient is a 59-year-old male who is now postop day 1 status post laparotomy for what turned out to be small bowel volvulus with unclear etiology. Suspect recent massive weight loss could have resulted in loss of mesenteric fat that made his mesentery more mobile. Regardless, he is feeling much better than he felt prior to surgery except for incisional pain. I expect he will likely have a prolonged ileus and therefore would like to keep his NG in today. He did have a positive guaiac but I suspect this is from NG tube trauma since his output is not bloody appearing. - Continue PPI - would hold off on Lovenox because of the positive guaiac - clamp NG tube today. - Okay for a popsicle - continue maintenance IV fluids - encourage ambulation and IS. - SCDs for DVT prophylaxis.
[2024-12-20 11:00] LABS: Gastric Occult Blood* POSITIVE (Negative); pH Gastric Fluid* 6.0
--- NOTE | 2024-12-20 13:40 | P.IMPN_ITS ---
Assessment and Plan Assessment and plan (1) SBO (small bowel obstruction): Problem comment: -d/w Dr. Meraz. She has reviewed CTs from [facility] and ours. No previous history of abdominal surgery. On Ozempic. - 12/20 Ozempic is on hold. Discussed with Dr. Meraz. Small-bowel volvulus, etiology unclear, cares per surgery, planning to clamp NG tube today, okay to have a popsicle prior to that. NG output is guaiac positive, will stop ketorolac and hold off on Lovenox, continue maintenance IV fluids. Status: Acute (2) Abdominal pain: Problem comment: Pain is likely from small-bowel obstruction, improved with NG tube. Patient is concerned about biliary disease. - 12/20 as above Status: Acute (3) Diabetes type 2: Problem comment: well managed with metformin and GLP1 (holding both) accuchecks as he is NPO, will had D5 if needed or PPN - 12/20 POC glucoses are within inpatient goal, continue q.6 hour Accu-Cheks with insulin sliding scale Status: Chronic (4) HTN (hypertension): Problem comment: lisinopril on hold; monitor pressures. IV metoprolol to replace propranolol - 12/20 hypertension well controlled with scheduled IV metoprolol, continue to hold lisinopril Status: Chronic (5) GUADALUPE (obstructive sleep apnea): Problem comment: mask doesn't fit properly; needs new study Status: Chronic (6) GERD (gastroesophageal reflux disease): Problem comment: IV PPI Status: Chronic (7) Hypokalemia: Problem comment: Replace and follow - 12/20 resolved, follow Status: Acute (8) Weight loss: Problem comment: - 130 lb weight loss over a year, which is not unexpected since patient was on Ozempic. Patient has been NPO or having poor oral intake for over a week due to small-bowel obstruction. Appreciate Nutrition consult. If diet is not advancing starting tomorrow, consider starting PPN. Status: Acute Plan 59-year-old male admitted with persisting and fluctuating small-bowel obstruction. Cause for this uncertain. Continue N/C suctioning and IV fluids and pain medication. Surgical consultation. Total Time Spent Total Time Spent: Total time spent today is 60 minutes in reviewing outside records, coordination of care, discussion with patient and other providers ongoing management of small bowel obstruction Subjective Time Seen by Provider: 09:10 Date Seen: 12/20/24 Interval history: Nursing staff noted that he had some darkish looking output from his NG tube and that this was gastric all positive. Douglas and his , Molly, were talking with Dr. Meraz from General surgery when I entered the room. Douglas complained about getting Toradol last night because it caused severe heartburn. He also complained about the NG tube causing pain in his throat and that the Cepastat spray and lozenges have not been helpful. He wants a popsicle to have some flavor and to soothe his throat. Dr. Meraz agreed that he could have a popsicle and that we would be clamping the NG tube today. Exam Narrative: Exam Narrative: General: Awake, alert, oriented x3. No pallor. No jaundice. NG tube in place with greenish output, no bright red blood. Oropharynx: Clear. Mucous membranes moist. Cardiovascular: Regular rate and rhythm. No murmurs, gallops, or rubs. Respiratory: Clear to auscultation bilaterally. No wheezes or crackles. Abdomen: Bowel sounds absent. Mildly distended. Bandages are clean, dry, and intact. Extremities: No lower extremity edema. Const: Vital Signs, click to edit/add: Vital Signs - 24 hr 12/19/24 16:05 12/19/24 16:10 12/19/24 16:15 Temperature 97.5 F L Pulse Rate 97 98 95 Pulse Rate [Left P ulse Oximeter] Pulse Rate [Right Pulse Oximeter] Respiratory Rate 16 18 18 Blood Pressure 133/87 140/89 H 135/88 Blood Pressure [Le ft Arm] Blood Pressure [Ri ght Arm] Pulse Oximetry 95 96 96 Oxygen Delivery Me thod Nasal Cannula Nasal Cannula Nasal Cannula Oxygen Flow Rate 3 3 3 Fraction of Inspir ed Oxygen 100 100 100 12/19/24 16:20 12/19/24 16:25 12/19/24 16:30 Temperature Pulse Rate 100 100 98 Pulse Rate [Left P ulse Oximeter] Pulse Rate [Right Pulse Oximeter] Respiratory Rate 18 16 16 Blood Pressure 131/93 H 140/80 H 139/85 Blood Pressure [Le ft Arm] Blood Pressure [Ri ght Arm] Pulse Oximetry 95 95 94 Oxygen Delivery Me thod Room Air Room Air Room Air Oxygen Flow Rate Fraction of Inspir ed Oxygen 12/19/24 16:35 12/19/24 16:46 12/19/24 17:01 Temperature 98.0 F 96.7 F L Pulse Rate 100 Pulse Rate [Left P ulse Oximeter] Pulse Rate [Right Pulse Oximeter] 100 101 H Respiratory Rate 16 18 18 Blood Pressure 141/82 H Blood Pressure [Le ft Arm] 143/93 H 145/83 H Blood Pressure [Ri ght Arm] Pulse Oximetry 94 90 90 Oxygen Delivery Me thod Room Air Room Air Room Air Oxygen Flow Rate Fraction of Inspir ed Oxygen 12/19/24 17:16 12/19/24 17:31 12/19/24 17:45 Temperature Pulse Rate Pulse Rate [Left P ulse Oximeter] Pulse Rate [Right Pulse Oximeter] 102 H 103 H 103 H Respiratory Rate 20 20 18 Blood Pressure Blood Pressure [Le ft Arm] 127/82 140/83 H 140/83 H Blood Pressure [Ri ght Arm] Pulse Oximetry 89 90 90 Oxygen Delivery Me thod Room Air Room Air Room Air Oxygen Flow Rate Fraction of Inspir ed Oxygen 12/19/24 18:01 12/19/24 18:22 12/19/24 18:30 Temperature 96.8 F L Pulse Rate 104 H Pulse Rate [Left P ulse Oximeter] Pulse Rate [Right Pulse Oximeter] 103 H 104 H Respiratory Rate 20 20 Blood Pressure Blood Pressure [Le ft Arm] 134/81 131/86 Blood Pressure [Ri ght Arm] Pulse Oximetry 89 89 Oxygen Delivery Me thod Room Air Room Air Oxygen Flow Rate Fraction of Inspir ed Oxygen 12/19/24 19:00 12/19/24 20:00 12/19/24 20:12 Temperature 96.4 F L 97.0 F L Pulse Rate Pulse Rate [Left P ulse Oximeter] Pulse Rate [Right Pulse Oximeter] 104 H 105 H Respiratory Rate 20 20 Blood Pressure Blood Pressure [Le ft Arm] 132/81 133/82 Blood Pressure [Ri ght Arm] Pulse Oximetry 90 90 90 Oxygen Delivery Me thod Room Air Room Air Oxygen Flow Rate Fraction of Inspir ed Oxygen 12/19/24 21:00 12/19/24 22:00 12/19/24 23:00 Temperature Pulse Rate 103 H Pulse Rate [Left P ulse Oximeter] Pulse Rate [Right Pulse Oximeter] 105 H 99 Respiratory Rate 20 20 Blood Pressure Blood Pressure [Le ft Arm] 126/77 123/77 Blood Pressure [Ri ght Arm] Pulse Oximetry 91 91 Oxygen Delivery Me thod Room Air Room Air Oxygen Flow Rate Fraction of Inspir ed Oxygen 12/19/24 23:00 12/19/24 23:00 12/19/24 23:48 Temperature 96.9 F L Pulse Rate Pulse Rate [Left P ulse Oximeter] 103 H 100 Pulse Rate [Right Pulse Oximeter] Respiratory Rate 18 18 18 Blood Pressure Blood Pressure [Le ft Arm] Blood Pressure [Ri ght Arm] 108/77 Pulse Oximetry 92 92 Oxygen Delivery Me thod Room Air Room Air Oxygen Flow Rate Fraction of Inspir ed Oxygen 12/20/24 03:00 12/20/24 03:38 12/20/24 07:00 Temperature 97.6 F Pulse Rate Pulse Rate [Left P ulse Oximeter] 99 Pulse Rate [Right Pulse Oximeter] 105 H Respiratory Rate 12 14 16 Blood Pressure Blood Pressure [Le ft Arm] 106/78 105/71 Blood Pressure [Ri ght Arm] Pulse Oximetry 92 91 93 Oxygen Delivery Me thod Room Air Room Air Oxygen Flow Rate Fraction of Inspir ed Oxygen 12/20/24 07:00 12/20/24 07:30 12/20/24 08:22 Temperature 98.6 F Pulse Rate 96 Pulse Rate [Left P ulse Oximeter] 101 H 101 H Pulse Rate [Right Pulse Oximeter] 97 Respiratory Rate 16 16 Blood Pressure Blood Pressure [Le ft Arm] Blood Pressure [Ri ght Arm] 122/78 Pulse Oximetry 91 Oxygen Delivery Me thod Room Air Oxygen Flow Rate Fraction of Inspir ed Oxygen 12/20/24 11:17 Temperature 97.6 F Pulse Rate Pulse Rate [Left P ulse Oximeter] Pulse Rate [Right Pulse Oximeter] 97 Respiratory Rate 16 Blood Pressure Blood Pressure [Le ft Arm] Blood Pressure [Ri ght Arm] 122/73 Pulse Oximetry 93 Oxygen Delivery Me thod Room Air Oxygen Flow Rate 3 Fraction of Inspir ed Oxygen 100 Labs Labs: Laboratory Results - last 24 hr 12/20/24 12/20/24 05:55 09:25 WBC 6.77 RBC 4.78 Hgb 14.7 Hct 44.1 MCV 92 MCH 31 MCHC 33 RDW Coeff of Christina 13.1 Plt Count 289 Neut % (Auto) 70.4 Lymph % (Auto) 14.0 L [place] % (Auto) 13.7 H Eos % (Auto) 0.7 Baso % (Auto) 0.3 Neut # (Auto) 4.76 Lymph # (Auto) 0.90 [place] # (Auto) 0.90 Eos # (Auto) 0.05 Baso # (Auto) 0.02 Abs Immat Gran (auto) 0.06 Imm/Tot Granulo (auto) 0.9 VBG pH 7.446 H VBG pCO2 40 VBG pO2 53.6 H VBG HCO3 28 Sodium 137 Potassium 3.8 Chloride 105 Carbon Dioxide 27 Anion Gap 5 L BUN 34 H Creatinine 0.7 Estimated Creat Clear 109.93 Estimated GFR 106 Glucose 125 H Calcium 8.1 L Magnesium 2.0 Total Bilirubin 1.0 AST 26 ALT 26 Alkaline Phosphatase 43 C-Reactive Protein 21.3 H Total Protein 5.2 L Albumin 2.8 L Lipase 15 L Gastric Fluid pH 6.0 Gastric Occult Blood POSITIVE A
[2024-12-20] MEDS: LACTATED RINGERS 1000 ML 1,000 ML 125 ML IV ×2 (14:01→21:43)
[2024-12-20] MEDS: BENZOCAINE/MENTHOL 1 EACH LOZENGE MUCOUS MEM (19:04)
--- NOTE | 2024-12-20 19:34 | PC.NURSE ---
End of shift-- Pt pleasant and cooperative, alert and oriented most of the day. VSS and pt is afebrile. SPO2 maintained >90% on RA. Pain appeared well managed with IV Tylenol and Dilaudid PRN roughly every 3 hours. Initially NG had been dislodged to 55. Patent and draining green/ black drainage. pH 6.5. Md was notified and gastroccult was obtained positive. NG was re-advanced to 59. Per MD order, NG was clamped at 1120. Pt denied nausea and tolerated ice chips until 1900. BS+ x4, increasingly active this afternoon. Pt stated that he occasionally passes flatus. Dressing to midline and left side of abdomen are C/D/I. LS CTA. Pt was up and ambulated twice today with encouragement, 1-2 assist to help with equipment, and walker. He did c/o pain following ambulation. was at bedside this morning and appears loving and supportive. At 1900 this evening, pt became restless and irritated with NG. He attempted ice chips, throat spray and a lozenge with no relief. Pt then c/o nausea and NG was reattached to suction with immediate green/black output and relief from nausea. Report to VAHE Willis who stated she will recheck and update MD.
[2024-12-21] VITALS (11 sets, daily range): BP systolic 129–158; BP diastolic 87–97; PULSE 89–102; RESP 12–18; TEMP 36–37; O2SAT 91–96
[2024-12-21] MEDS: SODIUM CHLORIDE 0.9 % (FLUSH) 10 ML SYRINGE 5 ML IVF ×2 (00:22→02:40)
[2024-12-21] MEDS: METOPROLOL TARTRATE 1 MG/ML inj 2.5 MG IVP ×4 (03:54→21:26)
[2024-12-21] MEDS: LACTATED RINGERS 1000 ML 1,000 ML 125 ML IV ×2 (06:01→13:56)
[2024-12-21] MEDS: ACETAMINOPHEN INJ 1,000 MG/100 ML VIAL 7 MG IVPB (06:01)
[2024-12-21 06:29] LABS: HCO3 VBG 30 mmol/L (21-28); PCO2 VBG 41 mmHG (40-50); PO2 VBG 74.4 mmHG (25-47); pH VBG 7.466 (7.32-7.43)
[2024-12-21 06:32] LABS: Hematocrit* 40.0 % (37.0-53.0); Hemoglobin* 13.1 gm/dL (13.5-17.5); Immature Granulocytes Abs Auto 0.03 K/uL (0.00-0.30); Immature Granulocytes Pct Auto 0.4 %; Mean Corpuscular HGB Conc 33 gm/dL (32-36); Mean Corpuscular Hemoglobin 31 pg (26-34); Mean Corpuscular Volume 94 fL (80-100); RDW Coefficient of Variation % 13.2 % (11.5-15.5); Red Blood Count* 4.27 m/uL (4.30-5.90); White Blood Count* 6.92 K/uL (4.50-11.00)
[2024-12-21 06:52] LABS: Lymphocytes Absolute Auto 0.90 K/uL (0.90-2.90); Slide Review Reflex No
[2024-12-21 07:10] LABS: Albumin* 2.6 g/dL (3.3-5.0); Chloride* 100 mmol/L (96-114); Potassium* 3.3 mmol/L (3.6-5.1); Sodium* 137 mmol/L (135-149)
[2024-12-21 07:13] LABS: Alanine Aminotransferase* 20 U/L (4-50); Alkaline Phosphatase* 44 U/L (40-150); Anion Gap 7 mEq/L (7-15); Aspartate Amino Transferase* 23 U/L (12-35); Bilirubin Total* 0.7 mg/dL (0.1-1.5); Blood Urea Nitrogen* 26 mg/dL (7-30); Calcium* 8.0 mg/dL (8.4-10.6); Carbon Dioxide* 30 mmol/L (20-32); Creatinine* 0.6 mg/dL (0.5-1.5); Est. Creatinine Clearance* 128.25; Estimated Glomerular Filt Rate 111 ml/min; Glucose* 101 mg/dL (60-115); Total Protein* 4.9 g/dL (6.0-8.3)
--- NOTE | 2024-12-21 07:30 | PC.NURSE ---
Pt alert, oriented and vitally stable.?Pt?stated?nausea at the beginning of shift, hooked NG to LIS (notified MD Lim), had 650 cc out throughout shift.?Output a green/?brown?color.?Pain?stated?mostly in the?throat,?ice chips, throat?lozenges?and throat spray all encouraged. Pain rated around 6-8/10, prn medications provided. NG remained at 59 throughout?the shift. Pt?stated?flatus.?Bowel?sounds active. Dressing C/D/I.?Pt educated and encouraged to ambulate, obliged to one walk in the paredes. Pt?in bed, appears to be resting, call light within reach.??
[2024-12-21] MEDS: PANTOPRAZOLE SODIUM 40 MG INJ IVP (08:13)
[2024-12-21] MEDS: ONDANSETRON 2 MG/ML inj 4 MG IVP (08:19)
--- NOTE | 2024-12-21 08:29 | CRLHL7_ITS ---
For Patients: As a result of the Century Cures Act, medical imaging exams and procedure reports are released immediately into your electronic medical record. You may view this report before your referring provider. If you have questions, please contact your health care provider. INDICATION: Tube placement TECHNIQUE: Chest 1 views. COMPARISON: CXR 2024 FINDINGS/IMPRESSION: Enteric tube is in place with the tip projecting over the gastric fundus. Low lung volume. No large effusion or pneumothorax. Cardiac size is stable. Multiple dilated bowel loops in the upper abdomen. Dictated by Luisa Ely MD @ 12/21/2024 9:23:21 AM (Electronically Signed)
[2024-12-21] MEDS: ACETAMINOPHEN INJ 1,000 MG/100 ML VIAL 400 MG IVPB ×2 (12:08→23:17)
--- NOTE | 2024-12-21 12:09 | PM.IMPN1 ---
Assessment and Plan Assessment and plan (1) SBO (small bowel obstruction): Problem comment: Small-bowel obstruction likely due to volvulus status post surgery day 1. Hospitalized in [place] for 1 week prior to coming to [place]. Anticipate slow recovery from this problem. Supportive cares, IV fluids, NG suctioning, pain management, nutritional support. Status: Acute (2) Diabetes type 2: Problem comment: Outpatient well managed with metformin and GLP1 (holding both) Inpatient well managed Status: Chronic (3) HTN (hypertension): Problem comment: lisinopril on hold; monitor pressures. IV metoprolol to replace propranolol - 12/20 hypertension well controlled with scheduled IV metoprolol, continue to hold lisinopril Status: Chronic (4) GUADALUPE (obstructive sleep apnea): Problem comment: mask doesn't fit properly; needs new study Status: Chronic (5) GERD (gastroesophageal reflux disease): Problem comment: IV PPI Status: Chronic (6) Hypokalemia: Problem comment: Replace and follow Status: Acute (7) Weight loss: Problem comment: - 130 lb weight loss over a year, which is not unexpected since patient was on Ozempic. Patient has been NPO or having poor oral intake for over a week due to small-bowel obstruction. Appreciate Nutrition consult. If diet is not advancing starting tomorrow, consider starting PPN. Status: Acute (8) Malnutrition: Problem comment: Severe malnutrition Acute on chronic malnutrition with 130 lb weight loss prior to hospitalization and now 10 days of minimal oral intake. Start PPN: ---PPN RECOMMENDATIONS--- Using patient's current body weight for calculations. RDN recommends starting PPN (5% dextrose, 4.25% amino acids) at 25 mL/hr x 8 hrs and advancing per protocol (25 mL/hr every 8 hours) until goal is met of 100 mL/hr. Goal PPN rate of 100 mL/hr x 24 hours provides a total of 816 kcals (9.2 kcals/kg), 102 grams protein (1.15 grams/kg), and 2400 mL fluid (27 mL/kg). 408 kcals from dextrose (1.3 grams/kg). With this regimen, patient will meet about 50% of total calorie needs, 100% of protein needs, and about 90% of fluid needs. Status: Acute Plan 59-year-old male continuing to require hospitalization for small-bowel obstruction, IV fluids and IV nutrition, pain management, supportive care is following surgery and pending return of bowel function. Total Time Spent Total Time Spent: Total time spent today is 60 minutes in coordination of care and discussing with patient and other providers and patient's family ongoing management of above medical problems Subjective Date Seen: 12/21/24 Interval history: Douglas Rodriguez is a 59 y/o WM with a hx of HLP, GUADALUPE, DM, GERD, and remote history of alcohol abuse who presents within hours of discharge from a local hospital. He apparently ate at a buffet on 12/13 and presented same day with abdominal pain/bloating/vomiting. He was admitted at a local hospital and was conservatively treated for SBO. He underwent serial exams, CT imaging, labs. His presentation and course were atypical as he passed contrast easily into his colon during but would have bouts of nausea/pain/vomiting requiring an NG tube. He had his NG removed 12/16 and attempted clears on 12/17 and tolerated a regular breakfast of cereal and banana this morning with a small diarrheal stool. He discharged home. Within 3-4 hours he was having intractable pain and vomited once. He apparently had a syncopal or presyncopal episode in our waiting room; in a wheelchair - he leaned over with pain and sorta spilled out onto the carpet. no head injury. no LOC. No abdominal surgeries. Last colonoscopy was 09/28 with 10 year f/u plan 130lb weight loss in the last 15 months; intentional and secondary to Ozempic. His last dose of Ozempic was December 08. Bowel movements have been irregular in this time from constipated for days and then liquid stools 12/19/2024: Overnight patient had some difficulty with pain control. This morning NG tube was placed. Immediately 200 mL of gastric fluid removed. He reported feeling better with this. He was taken to the operating room by Dr. Meraz for an exploratory laparoscopy/laparotomy. Findings were a small-bowel volvulus. Postoperatively he has had ongoing nausea. Initially had his NG tube clamped. Clamp was removed last evening as he was having increasing nausea and pain. Moderate amount of ongoing NG tube drainage since then. In the 1st 5 hours of today he has had 320 mL of dark greenish/bilous fluid in the NG drainage container. He has had no fever. He has no other concerns. Exam Narrative: Exam Narrative: He is alert and appears in no distress. NG tube in place draining a dark green fluid. Appears to be working appropriately. Respirations are clear to auscultation. Cardiovascular: S1, S2, regular rate and rhythm. Abdomen: Bowel sounds active. Abdomen is soft with minimal tenderness. No mass. Incision it site is bandaged with small amount of bloody drainage on the dressing. Extremities without edema. Good peripheral pulses. Good capillary refill. Const: Vital Signs, click to edit/add: Vital Signs - 24 hr 12/20/24 15:00 12/20/24 15:00 12/20/24 15:00 Temperature 98.3 F Pulse Rate 89 Pulse Rate [Left P ulse Oximeter] Pulse Rate [Right Pulse Oximeter] 89 Respiratory Rate 14 14 Blood Pressure [Le ft Arm] Blood Pressure [Ri ght Arm] 115/74 Pulse Oximetry 93 93 Oxygen Delivery In thod Room Air Room Air 12/20/24 15:00 12/20/24 19:38 12/20/24 21:06 Temperature 97.2 F L Pulse Rate Pulse Rate [Left P ulse Oximeter] 101 H 96 Pulse Rate [Right Pulse Oximeter] 89 Respiratory Rate 16 18 Blood Pressure [Le ft Arm] Blood Pressure [Ri ght Arm] 113/70 Pulse Oximetry 93 93 Oxygen Delivery In thod Room Air 12/20/24 22:30 12/20/24 23:00 12/20/24 23:00 Temperature 98.4 F Pulse Rate Pulse Rate [Left P ulse Oximeter] 91 96 Pulse Rate [Right Pulse Oximeter] 89 Respiratory Rate 16 18 18 Blood Pressure [Le ft Arm] Blood Pressure [Ri ght Arm] 134/79 Pulse Oximetry 93 93 Oxygen Delivery In thod Room Air Room Air 12/21/24 01:00 12/21/24 03:53 12/21/24 07:00 Temperature 98.6 F Pulse Rate 95 Pulse Rate [Left P ulse Oximeter] 99 Pulse Rate [Right Pulse Oximeter] Respiratory Rate 18 16 Blood Pressure [Le ft Arm] Blood Pressure [Ri ght Arm] 138/87 Pulse Oximetry 92 91 Oxygen Delivery In thod Room Air Room Air 12/21/24 07:00 12/21/24 07:00 12/21/24 08:29 Temperature 97.0 F L Pulse Rate 100 Pulse Rate [Left P ulse Oximeter] 95 95 Pulse Rate [Right Pulse Oximeter] 89 Respiratory Rate 16 16 Blood Pressure [Le ft Arm] 146/93 H Blood Pressure [Ri ght Arm] Pulse Oximetry 91 Oxygen Delivery Me thod Room Air 12/21/24 11:27 Temperature 96.8 F L Pulse Rate Pulse Rate [Left P ulse Oximeter] 96 Pulse Rate [Right Pulse Oximeter] Respiratory Rate 18 Blood Pressure [Le ft Arm] 158/97 H Blood Pressure [Ri ght Arm] Pulse Oximetry 95 Oxygen Delivery Me thod Room Air Documenting provider has reviewed patient's vital signs: yes Labs Labs: Laboratory Results - last 24 hr 12/21/24 05:40 WBC 6.92 RBC 4.27 L Hgb 13.1 L Hct 40.0 MCV 94 MCH 31 MCHC 33 RDW Coeff of Christina 13.2 Plt Count 286 Neut % (Auto) 65.3 Lymph % (Auto) 13.4 L [place] % (Auto) 18.1 H Eos % (Auto) 2.7 Baso % (Auto) 0.1 Neut # (Auto) 4.51 Lymph # (Auto) 0.90 [place] # (Auto) 1.30 H Eos # (Auto) 0.19 Baso # (Auto) 0.01 Abs Immat Gran (auto) 0.03 Imm/Tot Granulo (auto) 0.4 VBG pH 7.466 H VBG pCO2 41 VBG pO2 74.4 H VBG HCO3 30 H Sodium 137 Potassium 3.3 L Chloride 100 Carbon Dioxide 30 Anion Gap 7 BUN 26 Creatinine 0.6 Estimated Creat Clear 128.25 Estimated GFR 111 Glucose 101 Calcium 8.0 L Magnesium 1.8 Total Bilirubin 0.7 AST 23 ALT 20 Alkaline Phosphatase 44 C-Reactive Protein 17.7 H Total Protein 4.9 L Albumin 2.6 L Lipase 16 L
[2024-12-21] MEDS: POTASSIUM CHLORIDE 10 MEQ/100 ML PIGGYBACK 100 MEQ IVPB ×2 (12:56→13:58)
--- NOTE | 2024-12-21 16:25 | PC.NURSE ---
End of shift-- Pt has been pleasant and cooperative. VSS and pt is afebrile. SPO2 maintained >90% on RA. Pain appears well managed with PRN IV Tylenol and Dilaudid. Pt c/o nausea and had 1 small emesis this morning despite NG tube to LIS. Md was notified and pt had Xray per MD order. NG tube patent and drained 400ml of very dark green output today. BS + x4. PPN started at roughly 1500 today. Telemetry shows NSR. LS clear but coarse. Pt ambulated in hallway 3x today with assist of 1 and walker and tolerated it well. Son, grandson and were at bedside today and appear loving and supportive.
--- NOTE | 2024-12-21 18:39 | P.GSPN_ITS ---
Subjective Subjective Date Seen: 12/21/24 Interval history: Terry is doing okay today. His NG tube was clamped yesterday and this morning he had nausea and vomited. The NG tube was checked and found to be in his stomach. He was placed back to suction and had a L out. He was started on PPN today. He states he did pass a small amount of flatus. He has walked 3 times today. He does feel as though his abdomen is a bit distended. He thinks the nausea is from NG tube. Exam Narrative: Exam Narrative: General: No acute distress CV: Mild tachycardia with a heart rate of 102 respiratory: Breathing nonlabored on room air HEENT: NG in place with bilious output. Abdomen: Moderate distention but soft and appropriately tender. he does have hypoactive bowel sounds. Incision with mild ecchymosis at the inferior aspect, however is without erythema. Const: Vital Signs, click to edit/add: Vital Signs - 24 hr 12/20/24 19:38 12/20/24 21:06 12/20/24 22:30 Temperature 97.2 F L 98.4 F Pulse Rate Pulse Rate [Left P ulse Oximeter] 96 91 Pulse Rate [Right Pulse Oximeter] Respiratory Rate 18 16 Blood Pressure [Le ft Arm] Blood Pressure [Ri ght Arm] 113/70 134/79 Pulse Oximetry 93 93 93 Oxygen Delivery [facility] Room Air Room Air 12/20/24 23:00 12/20/24 23:00 12/21/24 01:00 Temperature Pulse Rate 95 Pulse Rate [Left P ulse Oximeter] 96 Pulse Rate [Right Pulse Oximeter] 89 Respiratory Rate 18 18 Blood Pressure [Le ft Arm] Blood Pressure [Ri ght Arm] Pulse Oximetry 93 Oxygen Delivery [facility] Room Air 12/21/24 03:53 12/21/24 07:00 12/21/24 07:00 Temperature 98.6 F Pulse Rate 100 Pulse Rate [Left P ulse Oximeter] 99 Pulse Rate [Right Pulse Oximeter] Respiratory Rate 18 16 Blood Pressure [Le ft Arm] Blood Pressure [Ri ght Arm] 138/87 Pulse Oximetry 92 91 Oxygen Delivery [facility] Room Air Room Air 12/21/24 07:00 12/21/24 08:29 12/21/24 11:27 Temperature 97.0 F L 96.8 F L Pulse Rate Pulse Rate [Left P ulse Oximeter] 95 95 96 Pulse Rate [Right Pulse Oximeter] 89 Respiratory Rate 16 16 18 Blood Pressure [Le ft Arm] 146/93 H 158/97 H Blood Pressure [Ri ght Arm] Pulse Oximetry 91 95 Oxygen Delivery Me thod Room Air Room Air 12/21/24 15:59 Temperature 98.6 F Pulse Rate Pulse Rate [Left P ulse Oximeter] 102 H Pulse Rate [Right Pulse Oximeter] Respiratory Rate 12 Blood Pressure [Le ft Arm] Blood Pressure [Ri ght Arm] 149/97 H Pulse Oximetry 95 Oxygen Delivery Me thod Room Air Labs/Imaging Labs Labs: Hemoglobin is 13 from 14.7 white blood cell count remains normal at 6.9. CRP is 17 from 21 mildly hypokalemic at 3.3 BUN Improved to 26. Imaging Imaging: Chest x-ray shows dilated loops of bowel in the upper abdomen, however comparing to the abdominal x-ray appears slightly improved to preop. NG tube is in the stomach. Progress Note:A&P Assessment and plan (1) Malnutrition: Status: Acute (2) Weight loss: Status: Acute (3) Status post laparotomy: Status: Acute (4) Hypokalemia: Status: Acute (5) History of CVA (cerebrovascular accident): Status: Acute (6) Diabetes type 2: Status: Chronic Plan The patient is a 59-year-old male who is postop day 2 status post exploratory laparotomy for mesenteric volvulus. He is somewhat frustrated because the NG tube remains in place, however he did have nausea and a large output with clamping trial. I explained to him that it will take some time for his bowels to recover. Usually it takes at least 3 days but it may take longer given that he has had this inflammation going on for so long. He was understanding of this. It is okay for him to have 1 popsicle per shift - agree with PPN - electrolyte replacement per hospitalist - encourage ambulation and incentive spirometry - continue NG to suction today given nausea with clamping trial. - Okay for Lovenox
[2024-12-21] MEDS: LACTATED RINGERS 1000 ML 1,000 ML 100 ML IV ×2 (19:54→23:24)
[2024-12-21] MEDS: ENOXAPARIN 40 MG/0.4 ML INJ SUBCUT (21:26)
--- NOTE | 2024-12-21 23:22 | PC.NURSE ---
Patient alert and oriented x4. Patient complains of throat pain all shift. Pain managed by PRN dilaudid which was ineffective. Also assessed mouth, no s/s of oral thrush noted. Patient states that swallowing and talking make pain worse. MD was notified that the patient rates pain 7-8/10 despite treatment with dilaudid. MD assessed patient. Patient otherwise stable. Other vital signs stable. Denies nausea/ vomiting. Reports that he is passing gas. NG tube intact on low to intermittent suction with green drainage. Patient was able to ambulate in the hallway with Ax1 with walker and gait belt. NSR on tele. Surgical Dressing clean dry and intact.
[2024-12-22] VITALS (16 sets, daily range): BP systolic 152–164; BP diastolic 89–106; PULSE 78–98; RESP 16–20; TEMP 36.4–36.8; O2SAT 94–98
--- NOTE | 2024-12-22 00:11 | W.PM.CROSSCO ---
Subjective Subjective Time Seen by Provider: 22:50 Date Seen: 12/21/24 Interval history: Douglas's nurse reported that he was using dilaudid every hour for throat pain, and that he persistently rated his pain 7/10, even after getting Dilaudid. Douglas tells me that the tube hurts in the middle of his throat (he points to just below his larynx) and is worse when he swallows. He said the Dilaudid doesn't help and he wants Tylenol. He denies CP, dyspnea, or nausea. Objective Objective Data Details: General: No acute distress. Awake, alert, oriented. No pallor. No jaundice. NG tube is in place in the nares. Oropharynx: Clear. Mucous membranes moist. Assessment and Plan Assessment and plan (1) Throat pain: Problem comment: 59 y/o male with throat pain, which I suspect is related to the NGT. I do not see evidence of oral thrush. He is not having any CP or dyspnea. I spoke with his nurse about his desire to receive prn acetaminophen (already available on his MAR). Monitor. Status: Acute
[2024-12-22] MEDS: METOPROLOL TARTRATE 1 MG/ML inj 2.5 MG IVP ×2 (03:38→10:36)
[2024-12-22] MEDS: ACETAMINOPHEN INJ 1,000 MG/100 ML VIAL 400 MG IVPB ×3 (05:02→20:10)
--- NOTE | 2024-12-22 05:13 | PC.NURSE ---
Pt complaining of throat pain. Not complaining of Ab pain. Throat pain controlled with IV Tylenol. Incision CDI. NG putting out green liquid. TPN running per APR. Pt up and stable on feet. Slow to move.
[2024-12-22 07:01] LABS: HCO3 VBG 28 mmol/L (21-28); PCO2 VBG 37 mmHG (40-50); PO2 VBG 71.0 mmHG (25-47); pH VBG 7.478 (7.32-7.43)
[2024-12-22 07:02] LABS: Hematocrit* 40.9 % (37.0-53.0); Hemoglobin* 13.4 gm/dL (13.5-17.5); Immature Granulocytes Abs Auto 0.11 K/uL (0.00-0.30); Immature Granulocytes Pct Auto 1.4 %; Mean Corpuscular HGB Conc 33 gm/dL (32-36); Mean Corpuscular Hemoglobin 31 pg (26-34); Mean Corpuscular Volume 94 fL (80-100); RDW Coefficient of Variation % 12.9 % (11.5-15.5); Red Blood Count* 4.35 m/uL (4.30-5.90); White Blood Count* 7.86 K/uL (4.50-11.00)
[2024-12-22 07:06] LABS: Lymphocytes Absolute Auto 1.00 K/uL (0.90-2.90); Slide Review Reflex No
[2024-12-22 07:26] LABS: Chloride* 100 mmol/L (96-114)
[2024-12-22 07:27] LABS: Potassium* 3.5 mmol/L (3.6-5.1); Sodium* 135 mmol/L (135-149)
[2024-12-22 07:29] LABS: Alanine Aminotransferase* 20 U/L (4-50); Aspartate Amino Transferase* 27 U/L (12-35); Blood Urea Nitrogen* 21 mg/dL (7-30); Creatinine* 0.5 mg/dL (0.5-1.5); Estimated Glomerular Filt Rate 117 ml/min
[2024-12-22 07:30] LABS: Alkaline Phosphatase* 46 U/L (40-150); Anion Gap 8 mEq/L (7-15); Bilirubin Total* 1.0 mg/dL (0.1-1.5); Calcium* 7.9 mg/dL (8.4-10.6); Carbon Dioxide* 27 mmol/L (20-32); Glucose* 123 mg/dL (60-115); Total Protein* 4.9 g/dL (6.0-8.3)
[2024-12-22 07:36] LABS: Albumin* 2.7 g/dL (3.3-5.0)
[2024-12-22] MEDS: PANTOPRAZOLE SODIUM 40 MG INJ IVP (08:31)
[2024-12-22] MEDS: SODIUM CHLORIDE 0.9 % (FLUSH) 10 ML SYRINGE 5 ML IVF ×3 (08:32→20:16)
[2024-12-22 10:44] LABS: Fecal Occult Blood* Positive (Negative)
--- NOTE | 2024-12-22 12:01 | P.IMPN_ITS ---
Assessment and Plan Assessment and plan (1) SBO (small bowel obstruction): Problem comment: Small-bowel obstruction likely due to volvulus status post surgery day 1. Hospitalized in [place] for 1 week prior to coming to [place]. Anticipate slow recovery from this problem. Supportive cares, IV fluids, NG suctioning, pain management, nutritional support. December 22 had normal bowel movement Status: Acute (2) Diabetes type 2: Problem comment: Outpatient well managed with metformin and GLP1 (holding both) Inpatient well managed Status: Chronic (3) HTN (hypertension): Problem comment: lisinopril on hold; monitor pressures. IV metoprolol to replace propranolol - 12/20 hypertension well controlled with scheduled IV metoprolol, continue to hold lisinopril. Enalaprilat for blood pressure pending oral intake Status: Chronic (4) GUADALUPE (obstructive sleep apnea): Problem comment: mask doesn't fit properly; needs new study Status: Chronic (5) GERD (gastroesophageal reflux disease): Problem comment: IV PPI Status: Chronic (6) Hypokalemia: Problem comment: Replace and follow Status: Acute (7) Weight loss: Problem comment: - 130 lb weight loss over a year, which is not unexpected since patient was on Ozempic. Patient has been NPO or having poor oral intake for over a week due to small-bowel obstruction. Appreciate Nutrition consult. If diet is not advancing starting tomorrow, consider starting PPN. Status: Acute (8) Malnutrition: Problem comment: Severe malnutrition Acute on chronic malnutrition with 130 lb weight loss prior to hospitalization and now 10 days of minimal oral intake. Start PPN: ---PPN RECOMMENDATIONS--- Using patient's current body weight for calculations. RDN recommends starting PPN (5% dextrose, 4.25% amino acids) at 25 mL/hr x 8 hrs and advancing per protocol (25 mL/hr every 8 hours) until goal is met of 100 mL/hr. Goal PPN rate of 100 mL/hr x 24 hours provides a total of 816 kcals (9.2 kcals/kg), 102 grams protein (1.15 grams/kg), and 2400 mL fluid (27 mL/kg). 408 kcals from dextrose (1.3 grams/kg). With this regimen, patient will meet about 50% of total calorie needs, 100% of protein needs, and about 90% of fluid needs. Status: Acute Plan Continue in hospital for management of small bowel obstruction and postoperative ileus pending return of bowel function. NG suctioning, IV PPN, pain management. Total Time Spent Total Time Spent: Total time spent is 40 minutes in coordination of care and discussing with patient and other providers ongoing management of small bowel obstruction Subjective Date Seen: 12/22/24 Interval history: Douglas Rodriguez is a 59 y/o WM with a hx of HLP, GUADALUPE, DM, GERD, and remote history of alcohol abuse who presents within hours of discharge from a local hospital. He apparently ate at a buffet on 12/13 and presented same day with abdominal pain/bloating/vomiting. He was admitted at a local hospital and was conservatively treated for SBO. He underwent serial exams, CT imaging, labs. His presentation and course were atypical as he passed contrast easily into his colon during but would have bouts of nausea/pain/vomiting requiring an NG tube. He had his NG removed 12/16 and attempted clears on 12/17 and tolerated a regular breakfast of cereal and banana this morning with a small diarrheal stool. He discharged home. Within 3-4 hours he was having intractable pain and vomited once. He apparently had a syncopal or presyncopal episode in our waiting room; in a wheelchair - he leaned over with pain and sorta spilled out onto the carpet. no head injury. no LOC. No abdominal surgeries. Last colonoscopy was 09/28 with 10 year f/u plan 130lb weight loss in the last 15 months; intentional and secondary to Ozempic. His last dose of Ozempic was December 08. Bowel movements have been irregular in this time from constipated for days and then liquid stools 12/19/2024: Overnight patient had some difficulty with pain control. This morning NG tube was placed. Immediately 200 mL of gastric fluid removed. He reported feeling better with this. He was taken to the operating room by Dr. Meraz for an exploratory laparoscopy/laparotomy. Findings were a small-bowel volvulus. Postoperatively he has had ongoing nausea. Initially had his NG tube clamped. Clamp was removed last evening as he was having increasing nausea and pain. Moderate amount of ongoing NG tube drainage since then. In the 1st 5 hours of today he has had 320 mL of dark greenish/bilous fluid in the NG drainage container. He has had no fever. He has no other concerns. 12/22/2024: Patient had NG suctioning continue through the night. He did past some flatus. It was clamped this morning but he requested to be reconnected primarily because of mucus in the throat. Subsequently he has had a small normal bowel movement and the tube is clamped again. He otherwise reports feeling well. Exam Narrative: Exam Narrative: He is alert and appears in no distress. Breathing is unlabored. Respirations with few basilar crackles. Otherwise clear to auscultation. Cardiovascular: S1, S2, regular rate and rhythm. Abdomen: Bowel sounds active. Abdomen is soft with mild right-sided tenderness. No peritonitis. Extremities without edema. Good peripheral pulses. Good capillary refill. Const: Vital Signs, click to edit/add: Vital Signs - 24 hr 12/21/24 15:59 12/21/24 16:00 12/21/24 16:00 Temperature 98.6 F Pulse Rate 100 Pulse Rate [Left P ulse Oximeter] 102 H Pulse Rate [Right Pulse Oximeter] Respiratory Rate 12 Blood Pressure [Le ft Arm] Blood Pressure [Ri ght Arm] 149/97 H Pulse Oximetry 95 Oxygen Delivery Pa thod Room Air Room Air 12/21/24 19:00 12/21/24 20:00 12/21/24 21:00 Temperature 97.9 F Pulse Rate Pulse Rate [Left P ulse Oximeter] 96 Pulse Rate [Right Pulse Oximeter] Respiratory Rate 14 Blood Pressure [Le ft Arm] 144/95 H 129/92 H Blood Pressure [Ri ght Arm] Pulse Oximetry 95 95 Oxygen Delivery Pa thod Room Air 12/21/24 23:20 12/22/24 00:00 12/22/24 00:00 Temperature 98.5 F Pulse Rate Pulse Rate [Left P ulse Oximeter] 98 98 Pulse Rate [Right Pulse Oximeter] 89 Respiratory Rate 16 16 16 Blood Pressure [Le ft Arm] Blood Pressure [Ri ght Arm] 151/95 H Pulse Oximetry 96 96 Oxygen Delivery Pa thod Room Air Room Air 12/22/24 00:26 12/22/24 02:57 12/22/24 07:14 Temperature 98.2 F Pulse Rate 88 92 Pulse Rate [Left P ulse Oximeter] 90 Pulse Rate [Right Pulse Oximeter] Respiratory Rate 16 Blood Pressure [Le ft Arm] Blood Pressure [Ri ght Arm] 156/91 H Pulse Oximetry 94 Oxygen Delivery Me thod Room Air 12/22/24 07:26 12/22/24 07:26 12/22/24 10:57 Temperature 97.6 F 97.6 F Pulse Rate Pulse Rate [Left P ulse Oximeter] 89 93 Pulse Rate [Right Pulse Oximeter] Respiratory Rate 16 16 20 Blood Pressure [Le ft Arm] Blood Pressure [Ri ght Arm] 152/106 H 154/89 H Pulse Oximetry 96 96 97 Oxygen Delivery Me thod Room Air Room Air Room Air Documenting provider has reviewed patient's vital signs: yes Labs Labs: Laboratory Results - last 24 hr 12/18/24 12/22/24 12/22/24 10:00 06:20 06:55 WBC 7.86 RBC 4.35 Hgb 13.4 L Hct 40.9 MCV 94 MCH 31 MCHC 33 RDW Coeff of Christina 12.9 Plt Count 300 Neut % (Auto) 67.7 Lymph % (Auto) 12.6 L [place] % (Auto) 16.2 H Eos % (Auto) 1.8 Baso % (Auto) 0.3 Neut # (Auto) 5.33 Lymph # (Auto) 1.00 [place] # (Auto) 1.30 H Eos # (Auto) 0.14 Baso # (Auto) 0.02 Abs Immat Gran (auto) 0.11 Imm/Tot Granulo (auto) 1.4 VBG pH 7.478 H VBG pCO2 37 L VBG pO2 71.0 H VBG HCO3 28 Sodium 135 Potassium 3.5 L Chloride 100 Carbon Dioxide 27 Anion Gap 8 BUN 21 Creatinine 0.5 Estimated Creat Clear 153.90 Estimated GFR 117 Glucose 123 H Calcium 7.9 L Phosphorus 3.0 Magnesium 1.7 Total Bilirubin 1.0 AST 27 ALT 20 Alkaline Phosphatase 46 C-Reactive Protein 11.5 H Total Protein 4.9 L Albumin 2.7 L Lipase 25 Stool Occult Blood Positive
[2024-12-22] MEDS: PROPRANOLOL 20 MG TABLET PO ×2 (14:47→20:15)
--- NOTE | 2024-12-22 15:05 | PM.GSPN ---
Subjective Subjective Date Seen: 12/22/24 Interval history: Terry is doing better. He is passing gas and had a bowel movement. He stated he had some nausea this morning, however he did not have much NG output half turn his NG was placed back to suction. He did have 870 out yesterday. He has been taking in 1 popsicle per shift. He has been up walking in the hallways. Exam Narrative: Exam Narrative: General: No acute distress CV: Regular rate Respiratory: Breathing is nonlabored on room air NG in place with bilious fluid in the drain. This is nonbloody. Abdomen: Slightly distended, however soft. He does have bowel sounds. No erythema noted at the incision though he does have some ecchymosis. Const: Vital Signs, click to edit/add: Vital Signs - 24 hr 12/21/24 15:59 12/21/24 16:00 12/21/24 16:00 Temperature 98.6 F Pulse Rate 100 Pulse Rate [Left P ulse Oximeter] 102 H Pulse Rate [Right Pulse Oximeter] Respiratory Rate 12 Blood Pressure [Le ft Arm] Blood Pressure [Ri ght Arm] 149/97 H Pulse Oximetry [address]od Room Air Room Air 12/21/24 19:00 12/21/24 20:00 12/21/24 21:00 Temperature 97.9 F Pulse Rate Pulse Rate [Left P ulse Oximeter] 96 Pulse Rate [Right Pulse Oximeter] Respiratory Rate 14 Blood Pressure [Le ft Arm] 144/95 H 129/92 H Blood Pressure [Ri ght Arm] Pulse Oximetry [address] thod Room Air 12/21/24 23:20 12/22/24 00:00 12/22/24 00:00 Temperature 98.5 F Pulse Rate Pulse Rate [Left P ulse Oximeter] 98 98 Pulse Rate [Right Pulse Oximeter] 89 Respiratory Rate 16 16 16 Blood Pressure [Le ft Arm] Blood Pressure [Ri ght Arm] 151/95 H Pulse Oximetry [address] thod Room Air Room Air 12/22/24 00:26 12/22/24 02:57 12/22/24 07:14 Temperature 98.2 F Pulse Rate 88 92 Pulse Rate [Left P ulse Oximeter] 90 Pulse Rate [Right Pulse Oximeter] Respiratory Rate 16 Blood Pressure [Le ft Arm] Blood Pressure [Ri ght Arm] 156/91 H Pulse Oximetry 94 Oxygen Delivery Me thod Room Air 12/22/24 07:26 12/22/24 07:26 12/22/24 10:57 Temperature 97.6 F 97.6 F Pulse Rate Pulse Rate [Left P ulse Oximeter] 89 93 Pulse Rate [Right Pulse Oximeter] Respiratory Rate 16 16 20 Blood Pressure [Le ft Arm] Blood Pressure [Ri ght Arm] 152/106 H 154/89 H Pulse Oximetry 96 96 97 Oxygen Delivery Me thod Room Air Room Air Room Air Labs/Imaging Labs Labs: White blood cell count is 7.8 Hemoglobin is stable at 13. Progress Note:A&P Assessment and plan (1) Malnutrition: Status: Acute (2) Weight loss: Status: Acute (3) Status post laparotomy: Status: Acute (4) Hypokalemia: Status: Acute Plan The patient is a 59-year-old male who is postop day 4 status post exploratory laparotomy for small bowel volvulus. He has return of bowel function though he did still have some nausea. I think it is safe to remove his NG today, however I cautioned him about p.o. intake. He can have juice and a popsicle from the kitchen at, however we will hold off on a full clear liquid diet for this evening. -continue ambulation and IS -continue PPN until he is taking adequate p.o. -electrolyte management per hospitalist -continue Lovenox for DVT prophylaxis -anticipate 1-2 more days of inpatient care.
--- NOTE | 2024-12-22 18:00 | PC.NURSE ---
Shift Summary: patient pleasant and coopreative. Up with one assist, walker and gait belt. Vitals stable, BP elevated. Pain managed with PRN medication. Up in halls walking with staff throughout shift. Denies nausea. NPO with sips/chips per . NG removed and patient doing well. Cares provided by staff, able to shower this morning. Had x1 BM and is passing gas, bowel sounds present. Patient stated this evening he is craving a bowl of cereal.
[2024-12-22] MEDS: LACTATED RINGERS 1000 ML 1,000 ML 25 ML IV (19:30)
[2024-12-22] MEDS: ENOXAPARIN 40 MG/0.4 ML INJ SUBCUT (20:15)
[2024-12-22] MEDS: ATORVASTATIN CALCIUM 40 MG TABLET PO (20:16)
[2024-12-22] MEDS: INSULIN ASPART 100 UNIT/ML SUBCUT (23:32)
[2024-12-23] VITALS (12 sets, daily range): BP systolic 143–155; BP diastolic 92–103; PULSE 77–94; RESP 16–20; TEMP 36.4–37.2; O2SAT 94–97
[2024-12-23] MEDS: SODIUM CHLORIDE 0.9 % (FLUSH) 10 ML SYRINGE 5 ML IVF ×3 (02:42→21:29)
[2024-12-23] MEDS: ACETAMINOPHEN INJ 1,000 MG/100 ML VIAL 400 MG IVPB (05:34)
[2024-12-23] MEDS: INSULIN ASPART 100 UNIT/ML SUBCUT ×3 (06:06→17:44)
[2024-12-23 06:08] LABS: HCO3 VBG 28 mmol/L (21-28); PCO2 VBG 37 mmHG (40-50); PO2 VBG 113.0 mmHG (25-47); pH VBG 7.481 (7.32-7.43)
[2024-12-23] MEDS: OMEPRAZOLE 20 MG CAPSULE DR 40 MG PO (06:11)
[2024-12-23 06:13] LABS: Hematocrit* 40.9 % (37.0-53.0); Hemoglobin* 13.7 gm/dL (13.5-17.5); Immature Granulocytes Abs Auto 0.16 K/uL (0.00-0.30); Immature Granulocytes Pct Auto 2.0 %; Mean Corpuscular HGB Conc 34 gm/dL (32-36); Mean Corpuscular Hemoglobin 31 pg (26-34); Mean Corpuscular Volume 92 fL (80-100); RDW Coefficient of Variation % 12.8 % (11.5-15.5); Red Blood Count* 4.45 m/uL (4.30-5.90); White Blood Count* 8.06 K/uL (4.50-11.00)
[2024-12-23 06:17] LABS: Lymphocytes Absolute Auto 1.20 K/uL (0.90-2.90); Slide Review Reflex No
[2024-12-23 06:25] LABS: Albumin* 2.5 g/dL (3.3-5.0); Chloride* 104 mmol/L (96-114)
[2024-12-23 06:26] LABS: Potassium* 3.2 mmol/L (3.6-5.1); Sodium* 133 mmol/L (135-149)
[2024-12-23 06:28] LABS: Alanine Aminotransferase* 31 U/L (4-50); Anion Gap 3 mEq/L (7-15); Aspartate Amino Transferase* 29 U/L (12-35); Blood Urea Nitrogen* 17 mg/dL (7-30); Carbon Dioxide* 26 mmol/L (20-32); Creatinine* 0.5 mg/dL (0.5-1.5); Estimated Glomerular Filt Rate 117 ml/min
[2024-12-23 06:29] LABS: Alkaline Phosphatase* 62 U/L (40-150); Bilirubin Total* 0.7 mg/dL (0.1-1.5); Calcium* 7.9 mg/dL (8.4-10.6); Glucose* 171 mg/dL (60-115); Total Protein* 4.9 g/dL (6.0-8.3)
--- NOTE | 2024-12-23 06:32 | PC.NURSE ---
Pt up SBA using walker Pain controlled. No N/V. UP having large BMs formed. Incision CDI.
--- NOTE | 2024-12-23 09:12 | PM.GSPN ---
Subjective Subjective Date Seen: 12/23/24 Interval history: Terry is doing better today. He has been stooling. He had a regular diet for breakfast though he states that he ?over did it a little. ? He has been up walking in the hallway. Pain is relatively controlled. Exam Narrative: Exam Narrative: General: No acute distress CV: Regular rate Respiratory: Breathing nonlabored on room air Abdomen: Mildly distended but soft. Appropriately tender for the postop state. Incisions without erythema. Const: Vital Signs, click to edit/add: Vital Signs - 24 hr 12/22/24 10:57 12/22/24 15:19 12/22/24 15:21 Temperature 97.6 F 97.5 F L Pulse Rate Pulse Rate [Left P ulse Oximeter] 93 88 Pulse Rate [Right Pulse Oximeter] Respiratory Rate 20 18 18 Blood Pressure [Ri ght Arm] 154/89 H 164/104 H Pulse Oximetry 97 97 97 Oxygen Delivery Me thod Room Air Room Air Room Air Oxygen Flow Rate 12/22/24 15:22 12/22/24 19:27 12/22/24 19:40 Temperature 97.5 F L Pulse Rate 81 82 Pulse Rate [Left P ulse Oximeter] 86 Pulse Rate [Right Pulse Oximeter] Respiratory Rate 18 Blood Pressure [Ri ght Arm] 157/102 H Pulse Oximetry 97 Oxygen Delivery Me thod Room Air Oxygen Flow Rate 0 12/22/24 19:41 12/22/24 22:21 12/22/24 22:23 Temperature 97.8 F Pulse Rate Pulse Rate [Left P ulse Oximeter] 78 78 Pulse Rate [Right Pulse Oximeter] 89 Respiratory Rate 16 16 Blood Pressure [Ri ght Arm] 158/99 H Pulse Oximetry 97 98 Oxygen Delivery Me thod Room Air Oxygen Flow Rate 12/22/24 22:24 12/22/24 22:25 12/23/24 02:44 Temperature 97.8 F 97.6 F Pulse Rate Pulse Rate [Left P ulse Oximeter] Pulse Rate [Right Pulse Oximeter] 80 Respiratory Rate 16 16 Blood Pressure [Ri ght Arm] 147/93 H Pulse Oximetry 98 97 Oxygen Delivery Me thod Room Air Room Air Oxygen Flow Rate 0 12/23/24 07:38 12/23/24 07:42 12/23/24 09:00 Temperature 98.4 F Pulse Rate 77 Pulse Rate [Left P ulse Oximeter] 82 Pulse Rate [Right Pulse Oximeter] Respiratory Rate 16 Blood Pressure [Ri ght Arm] 155/101 H Pulse Oximetry 95 95 Oxygen Delivery Me thod Room Air Room Air Oxygen Flow Rate Labs/Imaging Labs Labs: White blood cell count remains normal. Hemoglobin remains stable. Potassium 3.2 Sodium 133 CRP 6.1 from 11.5 Progress Note:A&P Assessment and plan (1) Malnutrition: Status: Acute (2) Weight loss: Status: Acute (3) Status post laparotomy: Status: Acute Plan The patient is a 59-year-old male who is postop day 4 status post laparotomy for mesenteric volvulus. He is doing much better today. He does have return of bowel function. I think it is reasonable to continue with a regular diet and wean off the TPN. As long as he does well today with this, he possibly could discharge home as soon as tomorrow. -regular diet -okay to wean PPN and DC IV fluids -transition to oral pain medication -encourage ambulation, continue Lovenox for DVT prophylaxis
[2024-12-23] MEDS: POTASSIUM BICARB 25 MEQ EFFERVESCENT TAB 50 MEQ PO (09:20)
[2024-12-23] MEDS: PROPRANOLOL 20 MG TABLET PO ×3 (09:21→21:27)
[2024-12-23] MEDS: HYDROCODONE-ACETAMIN 5-325 MG 1 TAB PO ×2 (11:57→18:45)
[2024-12-23] MEDS: ACETAMINOPHEN 325 MG TABLET 650 MG PO (14:49)
--- NOTE | 2024-12-23 16:28 | P.IMPN_ITS ---
Assessment and Plan Assessment and plan (1) SBO (small bowel obstruction): Problem comment: Small-bowel obstruction likely due to volvulus status post surgery day 1. Hospitalized in [place] for 1 week prior to coming to [place]. Anticipate slow recovery from this problem. Supportive cares, IV fluids, NG suctioning, pain management, nutritional support. December 22 had normal bowel movement. Appears resolving today, December 23 Status: Acute (2) Status post laparotomy: Problem comment: Small-bowel volvulus. Recovering from surgery gradually with return of bowel function Status: Acute (3) Malnutrition: Problem comment: Severe malnutrition Acute on chronic malnutrition with 130 lb weight loss prior to hospitalization and now 10 days of minimal oral intake. Start PPN: ---PPN RECOMMENDATIONS--- Using patient's current body weight for calculations. RDN recommends starting PPN (5% dextrose, 4.25% amino acids) at 25 mL/hr x 8 hrs and advancing per protocol (25 mL/hr every 8 hours) until goal is met of 100 mL/hr. Goal PPN rate of 100 mL/hr x 24 hours provides a total of 816 kcals (9.2 kcals/kg), 102 grams protein (1.15 grams/kg), and 2400 mL fluid (27 mL/kg). 408 kcals from dextrose (1.3 grams/kg). With this regimen, patient will meet about 50% of total calorie needs, 100% of protein needs, and about 90% of fluid needs. Return to normal diet. Stop PPN Status: Acute (4) Weight loss: Problem comment: - 130 lb weight loss over a year, which is not unexpected since patient was on Ozempic. Patient has been NPO or having poor oral intake for over a week due to small-bowel obstruction. Appreciate Nutrition consult. If diet is not advancing starting tomorrow, consider starting PPN. Stop Ozempic possibly long- term Status: Acute (5) Hypokalemia: Problem comment: Replace and follow Status: Acute (6) Diabetes type 2: Problem comment: Outpatient well managed with metformin and GLP1 (holding both) Inpatient well managed. Resume metformin Status: Chronic (7) HTN (hypertension): Problem comment: Resume home blood pressure medicines Status: Chronic Plan Continue in-hospital to establish that he can tolerate p.o. food and fluid well. Anticipate possible discharge to home if doing well. Total Time Spent Total Time Spent: Total time spent today is 40 minutes in coordination of care discussing with patient and other providers ongoing management of bowel obstruction, diabetes Subjective Date Seen: 12/23/24 Interval history: Douglas Rodriguez is a 59 y/o WM with a hx of HLP, GUADALUPE, DM, GERD, and remote history of alcohol abuse who presents within hours of discharge from a local hospital. He apparently ate at a buffet on 12/13 and presented same day with abdominal pain/bloating/vomiting. He was admitted at a local hospital and was conservatively treated for SBO. He underwent serial exams, CT imaging, labs. His presentation and course were atypical as he passed contrast easily into his colon during but would have bouts of nausea/pain/vomiting requiring an NG tube. He had his NG removed 12/16 and attempted clears on 12/17 and tolerated a regular breakfast of cereal and banana this morning with a small diarrheal stool. He discharged home. Within 3-4 hours he was having intractable pain and vomited once. He apparently had a syncopal or presyncopal episode in our waiting room; in a wheelchair - he leaned over with pain and sorta spilled out onto the carpet. no head injury. no LOC. No abdominal surgeries. Last colonoscopy was 09/28 with 10 year f/u plan 130lb weight loss in the last 15 months; intentional and secondary to Ozempic. His last dose of Ozempic was December 08. Bowel movements have been irregular in this time from constipated for days and then liquid stools 12/19/2024: Overnight patient had some difficulty with pain control. This morning NG tube was placed. Immediately 200 mL of gastric fluid removed. He reported feeling better with this. He was taken to the operating room by Dr. Meraz for an exploratory laparoscopy/laparotomy. Findings were a small-bowel volvulus. Postoperatively he has had ongoing nausea. Initially had his NG tube clamped. Clamp was removed last evening as he was having increasing nausea and pain. Moderate amount of ongoing NG tube drainage since then. In the 1st 5 hours of today he has had 320 mL of dark greenish/bilous fluid in the NG drainage container. He has had no fever. He has no other concerns. 12/22/2024: Patient had NG suctioning continue through the night. He did past some flatus. It was clamped this morning but he requested to be reconnected primarily because of mucus in the throat. Subsequently he has had a small normal bowel movement and the tube is clamped again. He otherwise reports feeling well. 12/23/2024: NG was moved yesterday. He has had some food to eat and tolerated well. He has had multiple loose stools overnight. Abdominal pain is better. He has failed overall feeling much better. Exam Narrative: Exam Narrative: He is alert and appears in no distress. Respirations clear to auscultation. Cardiovascular: S1, S2, regular rate and rhythm. Abdomen: Bowel sounds active. Abdomen is soft mild right-sided tenderness. No mass. Tenderness is much improved compared to the last couple days. Extremities without edema. Const: Vital Signs, click to edit/add: Vital Signs - 24 hr 12/22/24 19:27 12/22/24 19:40 12/22/24 19:41 Temperature 97.5 F L Pulse Rate 82 Pulse Rate [Left P ulse Oximeter] 86 Pulse Rate [Right Pulse Oximeter] Respiratory Rate 18 Blood Pressure [Ri ght Arm] 157/102 H Pulse Oximetry 97 97 Oxygen Delivery [place] thod Room Air Oxygen Flow Rate 0 12/22/24 22:21 12/22/24 22:23 12/22/24 22:24 Temperature 97.8 F Pulse Rate Pulse Rate [Left P ulse Oximeter] 78 78 Pulse Rate [Right Pulse Oximeter] 89 Respiratory Rate 16 16 16 Blood Pressure [Ri ght Arm] 158/99 H Pulse Oximetry 98 [facility] O[facility] Flow Rate 0 12/22/24 22:25 12/23/24 02:44 12/23/24 07:38 Temperature 97.8 F 97.6 F 98.4 F Pulse Rate Pulse Rate [Left P ulse Oximeter] 82 Pulse Rate [Right Pulse Oximeter] 80 Respiratory Rate 16 16 Blood Pressure [Ri ght Arm] 147/93 H 155/101 H Pulse Oximetry 97 95 [facility] Oxygen Flow Rate 12/23/24 07:42 12/23/24 09:00 12/23/24 10:19 Temperature 98.9 F Pulse Rate 77 Pulse Rate [Left P ulse Oximeter] 79 Pulse Rate [Right Pulse Oximeter] Respiratory Rate 18 Blood Pressure [Ri ght Arm] 155/99 H Pulse Oximetry 95 95 Oxygen Delivery Me thod Room Air Room Air Oxygen Flow Rate 12/23/24 14:09 12/23/24 14:13 12/23/24 14:32 Temperature 97.7 F Pulse Rate 94 Pulse Rate [Left P ulse Oximeter] Pulse Rate [Right Pulse Oximeter] 80 Respiratory Rate 18 18 Blood Pressure [Ri ght Arm] 154/99 H Pulse Oximetry 95 95 Oxygen Delivery Me thod Room Air Room Air Oxygen Flow Rate Documenting provider has reviewed patient's vital signs: yes Labs Labs: Laboratory Results - last 24 hr 12/23/24 06:04 WBC 8.06 RBC 4.45 Hgb 13.7 Hct 40.9 MCV 92 MCH 31 MCHC 34 RDW Coeff of Christina 12.8 Plt Count 333 Neut % (Auto) 66.6 Lymph % (Auto) 15.5 L Winkler % (Auto) 12.8 H Eos % (Auto) 2.7 Baso % (Auto) 0.4 Neut # (Auto) 5.37 Lymph # (Auto) 1.20 Winkler # (Auto) 1.00 H Eos # (Auto) 0.22 Baso # (Auto) 0.03 Abs Immat Gran (auto) 0.16 Imm/Tot Granulo (auto) 2.0 VBG pH 7.481 H VBG pCO2 37 L VBG pO2 113.0 H VBG HCO3 28 Sodium 133 L Potassium 3.2 L Chloride 104 Carbon Dioxide 26 Anion Gap 3 L BUN 17 Creatinine 0.5 Estimated Creat Clear 153.90 Estimated GFR 117 Glucose 171 H Calcium 7.9 L Phosphorus 2.9 Magnesium 1.7 Total Bilirubin 0.7 AST 29 ALT 31 Alkaline Phosphatase 62 C-Reactive Protein 6.1 H Total Protein 4.9 L Albumin 2.5 L Lipase 36
[2024-12-23] MEDS: METFORMIN ER 500 MG 1000 MG PO (17:46)
--- NOTE | 2024-12-23 18:13 | PC.NURSE ---
End of shift [id number]: Pt AxOx3, cooperative, and pleasant with cares. Op sites remain CDI to the abdomen. Pain managed well with PRN medication and rest. Pt up and walking halls during shift, tolerating well. Advanced to regular diet, tolerating well. Denies nausea at this time. SL to both IVs. BG checks in place, sliding scale per protocol. NSR on TELE. SBA GB W. Continent of bladder and bowels. Call light within reach.
[2024-12-23] MEDS: ATORVASTATIN CALCIUM 40 MG TABLET PO (21:27)
[2024-12-23] MEDS: ENOXAPARIN 40 MG/0.4 ML INJ SUBCUT (21:27)
[2024-12-23 22:40] LABS: CDIFFEPI 027 PRESUMPTIVE NEGATIVE (Negative)
[2024-12-23 22:46] LABS: C.Difficile POSITIVE (Negative)
[2024-12-23] MEDS: VANCOMYCIN 125 MG CAPSULE 250 MG PO (23:48)
[2024-12-24 03:18] VITALS: BP 149/97; PULSE 82; RESP 18; TEMP 36.4; O2SAT 96
--- NOTE | 2024-12-24 06:03 | PC.NURSE ---
[id number]: Patient A&Ox3. Afebrile. SBA w/walker. Steri strips to Abd C/D/I. Passing gas and multiple BM's. BS active. Denies N/V. Eating and voiding.
[2024-12-24] MEDS: OMEPRAZOLE 20 MG CAPSULE DR 40 MG PO (06:24)
[2024-12-24 06:30] LABS: HCO3 VBG 26 mmol/L (21-28); PCO2 VBG 35 mmHG (40-50); PO2 VBG 69.2 mmHG (25-47); pH VBG 7.484 (7.32-7.43)
[2024-12-24 06:36] LABS: Hematocrit* 41.3 % (37.0-53.0); Hemoglobin* 14.1 gm/dL (13.5-17.5); Immature Granulocytes Pct Auto 1.5 %; Mean Corpuscular HGB Conc 34 gm/dL (32-36); Mean Corpuscular Hemoglobin 31 pg (26-34); Mean Corpuscular Volume 91 fL (80-100); RDW Coefficient of Variation % 12.8 % (11.5-15.5); Red Blood Count* 4.53 m/uL (4.30-5.90); White Blood Count* 11.68 K/uL (4.50-11.00)
[2024-12-24 06:41] LABS: Immature Granulocytes Abs Auto 0.20 K/uL (0.00-0.30); Lymphocytes Absolute Auto 1.60 K/uL (0.90-2.90); Slide Review Reflex No
[2024-12-24 06:53] LABS: Albumin* 2.6 g/dL (3.3-5.0); Chloride* 102 mmol/L (96-114); Potassium* 3.4 mmol/L (3.6-5.1); Sodium* 135 mmol/L (135-149)
[2024-12-24 06:55] LABS: Blood Urea Nitrogen* 17 mg/dL (7-30); Creatinine* 0.5 mg/dL (0.5-1.5); Estimated Glomerular Filt Rate 117 ml/min
[2024-12-24 06:56] LABS: Alanine Aminotransferase* 49 U/L (4-50); Alkaline Phosphatase* 80 U/L (40-150); Anion Gap 7 mEq/L (7-15); Aspartate Amino Transferase* 42 U/L (12-35); Bilirubin Total* 0.7 mg/dL (0.1-1.5); Calcium* 7.7 mg/dL (8.4-10.6); Carbon Dioxide* 26 mmol/L (20-32); Glucose* 104 mg/dL (60-115); Total Protein* 5.0 g/dL (6.0-8.3)
[2024-12-24 07:27] VITALS: BP 154/101; PULSE 89; RESP 16; TEMP 36.8; O2SAT 96
[2024-12-24 08:00] VITALS: O2SAT 96
[2024-12-24] MEDS: METFORMIN ER 500 MG 1000 MG PO (08:59)
[2024-12-24] MEDS: POTASSIUM BICARB 25 MEQ EFFERVESCENT TAB 50 MEQ PO (08:59)
[2024-12-24] MEDS: PROPRANOLOL 20 MG TABLET PO ×2 (09:01→15:05)
[2024-12-24] MEDS: VANCOMYCIN 125 MG CAPSULE PO ×2 (09:01→15:05)
[2024-12-24] MEDS: SODIUM CHLORIDE 0.9 % (FLUSH) 10 ML SYRINGE 5 ML IVF (09:02)
--- NOTE | 2024-12-24 10:57 | PM.GSPN ---
Subjective Subjective Date Seen: 12/24/24 Interval history: Terry is doing better. He is tolerating regular diet. He has had a large number of bowel movements and did test positive for C diff. I believe he only received perioperative Zosyn, unclear if he was receiving antibiotics at the outside hospital. Regardless he was started on oral vancomycin today. He is denying significant pain. Exam Narrative: Exam Narrative: General: No acute distress CV: Regular rate Abdomen: Soft, very mildly distended. Nontender. No erythema. Const: Vital Signs, click to edit/add: Vital Signs - 24 hr 12/23/24 14:09 12/23/24 14:13 12/23/24 14:32 Temperature 97.7 F Pulse Rate 94 Pulse Rate [Left P ulse Oximeter] Pulse Rate [Right Pulse Oximeter] 80 Respiratory Rate 18 18 Blood Pressure [Le ft Arm] Blood Pressure [Ri ght Arm] 154/99 H Pulse Oximetry 95 95 Oxygen Delivery Me thod Room Air Room Air 12/23/24 21:23 12/23/24 21:25 12/23/24 22:33 Temperature 98.5 F Pulse Rate Pulse Rate [Left P ulse Oximeter] Pulse Rate [Right Pulse Oximeter] 84 Respiratory Rate 20 20 Blood Pressure [Le ft Arm] Blood Pressure [Ri ght Arm] 143/103 H Pulse Oximetry 94 94 94 Oxygen Delivery Me thod Room Air Room Air 12/23/24 23:47 12/24/24 03:18 12/24/24 07:27 Temperature 98.7 F 97.6 F 98.3 F Pulse Rate Pulse Rate [Left P ulse Oximeter] 89 Pulse Rate [Right Pulse Oximeter] 82 82 Respiratory Rate 16 18 16 Blood Pressure [Le ft Arm] 154/101 H Blood Pressure [Ri ght Arm] 143/92 H 149/97 H Pulse Oximetry 94 96 96 Oxygen Delivery Me thod Room Air Room Air Room Air 12/24/24 08:00 Temperature Pulse Rate Pulse Rate [Left P ulse Oximeter] Pulse Rate [Right Pulse Oximeter] Respiratory Rate Blood Pressure [Le ft Arm] Blood Pressure [Ri ght Arm] Pulse Oximetry 96 Oxygen Delivery Me thod Room Air Labs/Imaging Labs Labs: White blood cell count up slightly today to 11 C diff positive Progress Note:A&P Assessment and plan (1) Malnutrition: Status: Acute (2) Diabetes type 2: Status: Chronic (3) SBO (small bowel obstruction): Status: Acute (4) Status post laparotomy: Status: Acute (5) Clostridium difficile colitis: Status: Acute Plan Terry is a 59-year-old male who is now postop day 5 status post laparotomy for small bowel volvulus who has return of bowel function and tolerating a diet, however was diagnosed with C diff colitis. He is now on appropriate treatment for that. He is doing really well and could potentially discharge home later today on oral vancomycin, however if there are any concerns about his ability to manage at home with the new diagnosis of colitis, the should remain overnight and likely could discharge home tomorrow. -continue Lovenox while inpatient -continue IS and incentive spirometry -regular diet -discharge orders and recommendations placed if the patient is able to discharge home today.
[2024-12-24 11:00] VITALS: BP 146/99; PULSE 85; RESP 18; TEMP 36.7; O2SAT 95
[2024-12-24] MEDS: INSULIN ASPART 100 UNIT/ML SUBCUT (11:44)
--- NOTE | 2024-12-24 13:14 | PC.NURSE ---
Shift Summary: Patient pleasant and cooperative. Up independently in room. Tolerating regular diet. Denied pain/nausea throughout shift. continues to have loose BM. Vitals stable, elevated BP, afebrile.
--- NOTE | 2024-12-24 15:42 | PM.DS1 ---
DS: Providers Provider Date Seen: 12/24/24 Date of admission: 12/18/24 19:55 Primary care physician: Not a Local Provider Admitting Clinician: Lilliam Keller MD Attending Physician on discharge: Jhoan Lim MD Date of Discharge: 12/24/24 DS: Diagnosis Discharge Diagnosis (1) SBO (small bowel obstruction): Status: Acute Problem details: Small-bowel obstruction likely due to volvulus status post surgery December 19. Hospitalized in [place] for 1 week prior to coming to [place]. Made gradual progress with return of bowel function and oral intake. (2) Status post laparotomy: Status: Acute Problem details: Small-bowel volvulus. Recovering from surgery gradually with return of bowel function. December [address] Meraz (3) Malnutrition: Status: Acute Problem details: Severe malnutrition Acute on chronic malnutrition with 130 lb weight loss prior to hospitalization and now 10 days of minimal oral intake. On PPN after surgery now on oral diet. Hold Ozempic pending outpatient followup. Cautiously resume Ozempic if indicated. (4) Clostridium difficile colitis: Status: Acute Problem details: As bowels opened up he had diarrhea. This was tested to have positive for C diff. Patient was not particularly clinically ill with this. Plan to treat with vancomycin for 2 weeks with close follow-up to make sure this resolves. DS: Summary Hospital Course Hospital Course: Douglas Rodriguez is a 59 y/o WM with a hx of HLP, GUADALUPE, DM, GERD, and remote history of alcohol abuse who presents within hours of discharge from a local hospital. He apparently ate at a buffet on 12/13 and presented same day with abdominal pain/bloating/vomiting. He was admitted at a local hospital and was conservatively treated for SBO. He underwent serial exams, CT imaging, labs. His presentation and course were atypical as he passed contrast easily into his colon during but would have bouts of nausea/pain/vomiting requiring an NG tube. He had his NG removed 12/16 and attempted clears on 12/17 and tolerated a regular breakfast of cereal and banana this morning with a small diarrheal stool. He discharged home. Within 3-4 hours he was having intractable pain and vomited once. He apparently had a syncopal or presyncopal episode in our waiting room; in a wheelchair - he leaned over with pain and sorta spilled out onto the carpet. no head injury. no LOC. No abdominal surgeries. Last colonoscopy was 09/28 with 10 year f/u plan 130lb weight loss in the last 15 months; intentional and secondary to Ozempic. His last dose of Ozempic was December 08. Bowel movements have been irregular in this time from constipated for days and then liquid stools A December 2059 was taken to the OR for laparotomy. He was seen to have a small bowel volvulus. No bowel resection needed. Following surgery had gradual but slow return of normal bowel function and oral intake. For nutritional support he received PPN and then transition to an oral diet. No significant postop complications until last night when his stool was tested positive for C diff. He is not particularly ill but he was having diarrhea after his bowels opened up. Started on oral vancomycin for this. Plan 2 week course of treatment and close follow-up to determine whether ongoing evaluation and treatment of C diff is needed Status at Discharge Overall status at discharge: patient is progressing back to baseline Time Spent with Patient Time attestation: Total time spent providing and/or coordinating discharge services: Total time spent today is 45 minutes in coordination care on the day of discharge Time spent: Greater than 30 minutes Exam Narrative: Exam Narrative: He is alert and appears in no distress. Breathing is unlabored. Respirations are clear. Cardiovascular S1, S2, regular rate and rhythm. Abdomen: Bowel sounds active. Abdomen is soft with minimal tenderness. Extremities without edema. Const: Vital Signs, click to edit/add: Vital Signs - 24 hr 12/23/24 21:23 12/23/24 21:25 12/23/24 22:33 Temperature 98.5 F Pulse Rate [Left P ulse Oximeter] Pulse Rate [Right Pulse Oximeter] 84 Respiratory Rate 20 20 Blood Pressure [Le ft Arm] Blood Pressure [Ri ght Arm] 143/103 H Pulse Oximetry 94 94 94 Oxygen Delivery Me thod Room Air Room Air 12/23/24 23:47 12/24/24 03:18 12/24/24 07:27 Temperature 98.7 F 97.6 F 98.3 F Pulse Rate [Left P ulse Oximeter] 89 Pulse Rate [Right Pulse Oximeter] 82 82 Respiratory Rate 16 18 16 Blood Pressure [Le ft Arm] 154/101 H Blood Pressure [Ri ght Arm] 143/92 H 149/97 H Pulse Oximetry 94 96 96 Oxygen Delivery Me thod Room Air Room Air Room Air 12/24/24 08:00 12/24/24 11:00 Temperature 98.1 F Pulse Rate [Left P ulse Oximeter] 85 Pulse Rate [Right Pulse Oximeter] Respiratory Rate 18 Blood Pressure [Le ft Arm] 146/99 H Blood Pressure [Ri ght Arm] Pulse Oximetry 96 95 Oxygen Delivery Me thod Room Air Room Air Documenting provider has reviewed patient's vital signs: yes DS: Data Data Completed and Pending Labs on day of discharge: Labs from last 24 hours 12/24/24 12/23/24 06:20 21:43 WBC 11.68 H RBC 4.53 Hgb 14.1 Hct 41.3 MCV 91 MCH 31 MCHC 34 RDW Coeff of Christina 12.8 Plt Count 373 Neut % (Auto) 71.6 Lymph % (Auto) 13.3 L [place] % (Auto) 11.2 H Eos % (Auto) 2.1 Baso % (Auto) 0.3 Neut # (Auto) 8.40 H Lymph # (Auto) 1.60 [place] # (Auto) 1.30 H Eos # (Auto) 0.20 Baso # (Auto) 0.00 Abs Immat Gran (auto) 0.20 Imm/Tot Granulo (auto) 1.5 VBG pH 7.484 H VBG pCO2 35 L VBG pO2 69.2 H VBG HCO3 26 Sodium 135 Potassium 3.4 L Chloride 102 Carbon Dioxide 26 Anion Gap 7 BUN 17 Creatinine 0.5 Estimated Creat Clear 153.90 Estimated GFR 117 Glucose 104 Calcium 7.7 L Phosphorus 3.2 Magnesium 1.5 Total Bilirubin 0.7 AST 42 H ALT 49 Alkaline Phosphatase 80 C-Reactive Protein 4.3 H Total Protein 5.0 L Albumin 2.6 L Lipase 33 Stl C. diff Tox B Gene POSITIVE A* Stl C. diff [id number] PRESUMPTIVE NEGATIVE Imaging CT scan - abdomen: Radiologist's impression: INDICATION: RECENT BOWEL OBSTRUCTION, PAIN TECHNIQUE: CT of the abdomen and pelvis was obtained with 95 mL of Isovue 370 intravenous contrast. Please note that all CT scans at this facility use dose modulation, iterative reconstruction, and/or weight-based dosing when appropriate to reduce radiation dose to as low as reasonably achievable. COMPARISON: 12/15/2024. FINDINGS: Lower thorax: Please see separately dictated same day report. Liver and biliary tree: Normal. Gallbladder: Normal. Spleen: Normal. Pancreas: Normal. Adrenal glands: Normal. Kidneys and ureters: Right renal cyst. Additional subcentimeter hypoattenuating lesions are too small to characterize and are favored to represent cysts. No hydronephrosis or obstructing renal calculi. Gastrointestinal tract: Mild gaseous prominence of the colon measuring up to 6.0 centimeter (2/35). No evidence of acute appendicitis. Moderately dilated small bowel loops measuring up to 4.9 centimeter (2/71) with associated air-fluid levels. Transition point is seen likely in the right upper quadrant of the abdomen. Peritoneal cavity: Small amount of intra-abdominal ascites. Moderate mesenteric edema. Small amount of interloop free fluid. Bladder: Normal. Pelvic organs: Normal. Vasculature: Moderate calcification. Lymph nodes: Normal. Abdominal wall: Normal. Musculoskeletal: Kkwv-ht-yfgrkhwn degenerative changes of the bilateral hips and of the visualized spine. IMPRESSION: 1. Moderately dilated small bowel loops measuring up to 4.9 centimeter with air-fluid levels again seen and likely transition point in the right upper quadrant of the abdomen. Moderate mesenteric edema with small amount of interloop free fluid may represent developing ischemia in the setting of small-bowel obstruction. 2. Small amount of intra-abdominal ascites. CT scan - chest: Radiologist's impression: Indication: RIGHT SIDED BACK PAIN, DYSPNEA, ELEVATED D-DIMER Technique: CT angiogram of the chest was performed for evaluation of pulmonary embolism. 95 mL of Isovue 370 intravenous contrast was administered. Comparison: 12/15/2024. Findings: CARDIOVASCULAR: Diagnostic quality: Contrast opacification of the pulmonary arterial circulation is adequate for assessment of pulmonary embolism. Study is not significantly limited by respiratory motion artifact. Pulmonary arteries: No filling defects to suggest pulmonary embolism. Not enlarged. Heart: No interventricular septal deviation. Normal in size. Mild coronary artery calcification. No significant valvular calcification. Pericardium: No pericardial effusion. Thoracic aorta: No significant abnormality. Normal cervical branching. REMAINING CHEST: Medical devices: None. Thyroid: 1.0 centimeter calcified right thyroid nodule (4/72). No further imaging is recommended for incidental thyroid nodules measuring < 1.5 cm in an adult patient <= 35 years of age. Adapted from Consensus Recommendations, J Am Lorenzo Radiol 2015;12:143???150. Lymph nodes: No supraclavicular, axillary, mediastinal, or hilar lymphadenopathy. Other mediastinal structures: No significant abnormality. Lung parenchyma: Mild right lower lobe linear atelectasis. Airways: Ohbp-eq-rxceexiu bronchial wall thickening. Pleura: No significant abnormality. Chest wall: No significant abnormality. Upper abdomen: Please see separately dictated same day report. Musculoskeletal: No significant abnormality. Impression: 1. No acute pulmonary embolism. 2. Tvjm-xp-bvkzrqls bronchial wall thickening may represent areas of infection or inflammation. Discharge Plan Discharge Disposition: Home, Self-Care Date of Admission: 12/18/24 19:55 Attending Provider on Discharge: Micheal Lim Primary Care Provider: Provider,Not a Local Condition: Stable Anticipated Discharge Date/Time: 12/24/24 14:42 Discharge Medications: New hydrocodone-acetaminophen 5-325 mg Tablet 1 tab PO Q6H PRNQty: 15 0RF vancomycin 125 mg Capsule 125 mg PO QID Qty: 56 0RF Continued atorvastatin 40 mg tablet 40 mg PO QPM omeprazole 40 mg capsule,delayed release(DR/EC) 40 mg PO DAILY metformin 1,000 mg tablet 1,000 mg PO BID lisinopril 10 mg tablet 10 mg PO DAILY nitroglycerin 0.4 mg tablet, sublingual 0.4 mg sublingual Q5M PRN propranolol 20 mg tablet 20 mg PO 3XD cholecalciferol (vitamin D3) 125 mcg (5,000 unit) capsule 125 mcg PO DAILY Discontinued Ozempic 2 mg/dose (8 mg/3 mL) pen injector 2 mg subcut Q7D Discharge Orders: Discharge Order (Routine); Ordered 12/24/24 Ordered By: Micheal Lim Patient Education: Hydrocodone/Acetaminophen (By mouth), Vancomycin (By mouth), C. Diff (Clostridioides Difficile) Infection (DC), Bowel Obstruction (DC), General Anesthesia (DC), NH+C Laparoscopy Discharge Instructions Additional Instructions: Wound care: Your sutures are under the skin and will dissolve over time. Leave steri strips (white bandages) over incisions until they fall off (or remove after 7 days). OK to shower but avoid bathing, soaking or swimming for 2 weeks. Pat the incisions dry. No need to wash or scrub the area. Apply ice to the area as needed for swelling. It is also OK to use a heating pad if this provides more comfort to you. Pain control: You were prescribed a pain medication. This medication contains acetaminophen (Tylenol). If you are taking your prescribed pain pills 4 times daily, do not take additional acetaminophen. As your pain improves, you can try taking acetaminophen instead of the prescribed pain pill. It is ok to take Ibuprofen or Naproxen (per directions on packaging). This medication helps with inflammation and swelling. Take an rxfw-nig-cckvzor stool softener while you are taking prescribed pain medications to help alleviate constipation. I recommend Senna and/or Colace. Take as directed on package. If you have not had a bowel movement in 3 days, try taking Miralax as directed on the package. All of these are available over the counter. Follow-up Follow up with Dr. Meraz in 2-3 weeks Please call if you are experiencing severe pain, nausea, vomiting, difficulty urinating, fever or have not had bowel movement in 4 days after discharge. Activity Level: No strenuous activity Discharge Diet: Diabetic Follow Up Appointments: Jodie Meraz MD [Staff Physician, General Surgery] - 01/07/25 10:15 am Referral Note: [facility] for follow up with Dr. Meraz Provider,Not a Local [Primary Care Provider, Family Practice] Referral Note: Follow-up with your primary care provider in 11-13 days Forms: [employer] Info Instructions
--- NOTE | 2024-12-24 17:47 | PC.NURSE ---
Discharge Summary: Patient pleasant and cooperative. Independent in room. Patient discharged home at 1550 with all personal belongings accompanied by spouse. Discharge instructions including diagnosis, medications and follow up appointment discussed with patient and voiced understanding. SL discontinued with tip intact.
[2024-12-26 23:03] LABS: Ova and Parasite, Fecal Negative (Negative)
== END 2024-12-24 15:50 | disposition home or self-care (01) | DRG 229 ==
LOC: ED 19:07 → MEDSURG 19:55
PROVIDERS: Family Medicine; Student in an Organized Health Care Education/Training Program; Surgery; Admitting Provider Family Medicine; Emergency Provider Family Medicine; Visit Provider Family Medicine
PROC: 0WJG4ZZ Inspection of Peritoneal Cavity, Percutaneous Endoscopic Approach (ICD-10-PCS; CPT 49320; principal; 2024-12-19 13:00)
DX: K56.2 Volvulus (principal); R18.8 Other ascites; A04.72 Enterocolitis due to Clostridium difficile, not specified as recurrent; E87.6 Hypokalemia; E43 Unspecified severe protein-calorie malnutrition; G89.18 Other acute postprocedural pain; R07.0 Pain in throat; E11.9 Type 2 diabetes mellitus without complications; R63.4 Abnormal weight loss; Z68.29 Body mass index [BMI] 29.0-29.9, adult; G47.33 Obstructive sleep apnea (adult) (pediatric); I10 Essential (primary) hypertension; K21.9 Gastro-esophageal reflux disease without esophagitis; E78.5 Hyperlipidemia, unspecified; Z79.84 Long term (current) use of oral hypoglycemic drugs; Z79.85 Long-term (current) use of injectable non-insulin antidiabetic drugs; Z86.73 Personal history of transient ischemic attack (TIA), and cerebral infarction without residual deficits
CPT/HCPCS: 00840; 36415; 64488; 71045; 71275; 74018; 74177; 76705; 76942; 80048; 80053; 80076; 82270; 82803; 82962; 83036; 83605; 83690; 83735; 83880; 83986; 84100; 84134; 84145; 84484; 85025; 85379; 86140; 87177; 87209; 87493; 93005; 94761; 99284; 99285; A9270; B4189; J0131; J0665; J0666; J1100; J1171; J1650; J1885; J2060; J2405; J2470; J2543; J2704; J3010; J3475; J3480; J3490; J7030; J7120; Q9967